=== PATIENT | male | born 1985 | race Caucasian/White ===

== ENCOUNTER 2017-01-05 18:28 | Emergency (ER) | payer OTHER ==
[~2017-01-05 18:28] MED LIST: CELE20TA PO; SERO50TA PO; TRAZ50TA4 PO
[2017-01-05] MEDS ORDERED: AZITHROMYCIN 250 MG TAB As Ordered ONE (19:54)
--- NOTE | 2017-01-05 20:08 | EDDOCDS ---
Physician Documentation [facility] Name: Miguel Chung Age: 31 yrs Sex: Male : 1985 Arrival Date: 01/05/2017 Time: 18:28 Bed 19 Private MD: NO PRIMARY PHYSICIAN, . Disposition: 01/05/17 19:56 Discharged to Home/Self Care. Impression: Acute bronchitis. - Condition is Stable. - Discharge Instructions: Acute Bronchitis. - Prescriptions for Doxycycline Hyclate 100 mg Oral Tablet - take 1 tablet by ORAL route every 12 hours; 20 tablet. - Medication Reconciliation, Local Pharmacy Hours form. - Follow up: [facility]; When: Call to arrange an appointment. - Problem is new. - Symptoms have improved. - Notes: return if worsening symptoms Historical: - Allergies: No known drug Allergies; - Home Meds: 1. Ambien 10 mg oral tab 1 tab once daily 2. Celexa 20 mg Oral tab 1 tab once daily 3. ranitidine HCl 150 mg Oral cap 1 cap 2 times per day 4. Geodon 20 mg Oral cap 1 cap daily 5. Wellbutrin 75 mg Oral tab 1 tab daily - PMHx: ADJUSTMENT DISORDER; Anxiety; Depression; GERD; - PSHx: none; - Social history: Smoking status: Patient uses tobacco products, heavy tobacco smoker. No barriers to communication noted, The patient speaks fluent Lebanese, Speaks appropriately for age. - Family history: Not pertinent. - : The pt / caregiver states he / she is not on anticoagulants. Home medication list is obtained from the patient. - Exposure Risk Screening:: None identified. Vital Signs: 01/05 18:31 BP 145 / 87; Pulse 103; Resp 18 S; Temp 97.3(O); Pulse Ox 97% on R/A; Weight 108.86 kg gr2 / 240 lbs (R); Height 5 ft. 10 in. (177.80 cm) (R); Pain 4/10; 20:05 BP 134 / 94; Pulse 94; Resp 18; Temp 96.8(O); Pulse Ox 94% ; mgs 18:31 Body Mass Index 34.44 (108.86 kg, 177.80 cm) gr2 MDM: 19:52 azithromycin 500 mg PO once ordered. mgs 20:04 Financial registration complete. gjb Administered Medications: 20:02 Drug: azithromycin 500 mg [azithromycin 250 mg tablet (2 tabs)] Route: PO; mgs Signatures: Malina Henriquez MD MD ml Sherrill, Hannah, RN RN hs1 Joseph Anton RN RN mgs Berna Urbano MTDAide
--- NOTE | 2017-01-05 20:08 | EDDOCDS ---
Nurse's Notes [facility] Name: Miguel Chung Age: 31 yrs Sex: Male : 1985 Arrival Date: 01/05/2017 Time: 18:28 Bed 19 Private MD: NO PRIMARY PHYSICIAN, . Diagnosis: Acute bronchitis Presentation: 01/05 18:34 Presenting complaint: Patient states: sinus congestion dry cough chills runny nose. 2 hs1 days ago was diagnosed with bronchitis. Adult Sepsis Screening: The patient does not have new or worsening altered mentation. Patient's respiratory rate is less than 22. Systolic blood pressure is greater than 100. Patient has a qSOFA score of 0- Negative Sepsis Screen. Suicide/Homicide risk assessment- the patient denies having any suicidal and/or homicidal ideations and does not present with any other emotional, behavioral or mental health complaints. Status: Patient is not a customer service representative teacher or dependent. Transition of care: patient was not received from another setting of care. 18:34 Acuity: LUIS CARLOS Level 4 hs1 18:34 Method Of Arrival: Walkin/Carried/Asstd hs1 Triage Assessment: 18:36 General: Appears in no apparent distress, Behavior is appropriate for age, cooperative. hs1 Pain: Denies pain. HIV screening NA for this visit Offered previously. Neurological: Level of Consciousness is awake, alert, obeys commands. Respiratory: Reports cough that is pain with cough. Derm: Skin is pink, warm & dry. normal. Historical: - Allergies: No known drug Allergies; - Home Meds: 1. Ambien 10 mg oral tab 1 tab once daily 2. Celexa 20 mg Oral tab 1 tab once daily 3. ranitidine HCl 150 mg Oral cap 1 cap 2 times per day 4. Geodon 20 mg Oral cap 1 cap daily 5. Wellbutrin 75 mg Oral tab 1 tab daily - PMHx: ADJUSTMENT DISORDER; Anxiety; Depression; GERD; - PSHx: none; - Social history: Smoking status: Patient uses tobacco products, heavy tobacco smoker. No barriers to communication noted, The patient speaks fluent Slovak, Speaks appropriately for age. - Family history: Not pertinent. - : The pt / caregiver states he / she is not on anticoagulants. Home medication list is obtained from the patient. - Exposure Risk Screening:: None identified. Screenin:47 Screening information is obtained from the patient. Fall risk: No risks identified. mgs Assistance ADL's: requires no assistance with activities of daily living. Abuse/DV Screen: The patient / caregiver reports he/she is: not in a situation that causes fear, pain or injury. Nutritional screening: No deficits noted. Advance Directives: Currently, there is no health care proxy. There is no active DNR order. home support is adequate. Assessment: 19:44 General: Appears in no apparent distress, Behavior is appropriate for age, cooperative. mgs Pain: Denies pain. Neurological: Level of Consciousness is awake, alert, Oriented to person, place, time. Cardiovascular: Capillary refill < 3 seconds Heart tones S1 S2 present Pulses are 2+ in right radial artery and left radial artery. Respiratory: Airway is patent Respiratory effort is even, unlabored, Respiratory pattern is regular, symmetrical, Breath sounds are clear bilaterally. Derm: Skin is pink, warm & dry. 20:06 General: Appears in no apparent distress, Behavior is appropriate for age, cooperative. mgs Pain: Denies pain. Neurological: Level of Consciousness is awake, alert, Oriented to person, place, time. Cardiovascular: Capillary refill < 3 seconds. Respiratory: Airway is patent Respiratory effort is even, unlabored, Respiratory pattern is regular, symmetrical. Derm: Skin is pink, warm & dry. Vital Signs: 18:31 BP 145 / 87; Pulse 103; Resp 18 S; Temp 97.3(O); Pulse Ox 97% on R/A; Weight 108.86 kg gr2 (R); Height 5 ft. 10 in. (177.80 cm) (R); Pain 4/10; 20:05 BP 134 / 94; Pulse 94; Resp 18; Temp 96.8(O); Pulse Ox 94% ; mgs 18:31 Body Mass Index 34.44 (108.86 kg, 177.80 cm) gr2 Vitals: 18:31 Log In Time: January 05, 2017 at 18:31. gr2 ED Course: 18:30 Patient visited by Ana Maria Durand. gr2 18:30 Patient moved to Waiting gr2 18:31 NO PRIMARY PHYSICIAN, . is Private Physician. gr2 18:33 Patient visited by Ana Maria Durand. gr2 18:33 Patient moved to Pre RCE gr2 18:34 Triage Initiated hs1 19:30 Patient moved to 19 ttb 19:41 Patient visited by Ryan Novak PCA. kb5 19:44 Joseph Anton,RN is Primary Nurse. mgs 19:46 Malina Henriquez MD is Attending Physician. 19:47 Patient visited by Malina Henriquez MD. 19:48 Patient visited by Joseph Anton,RN. mgs 19:55 [facility] is Referral Physician. ml 20:07 The patient / caregiver is instructed regarding the plan of care and ED course. mgs 20:07 No IV's were initiated during this patient's visit. No procedures done that require mgs assistance. Administered Medications: 20:02 Drug: azithromycin 500 mg [azithromycin 250 mg tablet (2 tabs)] Route: PO; mgs Order Results: There are currently no results for this order. Outcome: 19:56 Discharge ordered by Provider. ml 20:07 Discharge Assessment: Patient awake, alert and oriented x 3. No cognitive and/or mgs functional deficits noted. Patient verbalized understanding of disposition instructions. patient administered narcotics - no. The following High Risk Discharge criteria are identified: None. Discharged to home ambulatory, with family. Condition: stable. Discharge instructions given to patient, Instructed on discharge instructions, follow up and referral plans. medication usage, Demonstrated understanding of instructions, medications, Pt was receptive of discharge instructions/ teaching. Prescriptions given X 1. No special radiology studies were completed. Property sent home with patient. 20:08 Patient left the ED. mgs Signatures: Malina Henriquez MD MD Ryan Novak PCA ELIGIBILITY TECHNICIAN kb5 Mindy Donald RN RN hs1 Millie Medrano RN RN ttb Ana Maria Durand gr2 Joseph Anton,JOSEFINA RN mgs MTDD
--- NOTE | 2017-01-07 21:08 | EDDOCDS ---
Physician Documentation [facility] Name: Miguel Chung Age: 31 yrs Sex: Male : 1985 Arrival Date: 01/05/2017 Time: 18:28 Bed 19 Private MD: NO PRIMARY PHYSICIAN, . Disposition: 01/05/17 19:56 Discharged to Home/Self Care. Impression: Acute bronchitis. - Condition is Stable. - Discharge Instructions: Acute Bronchitis. - Prescriptions for Doxycycline Hyclate 100 mg Oral Tablet - take 1 tablet by ORAL route every 12 hours; 20 tablet. - Medication Reconciliation, Local Pharmacy Hours form. - Follow up: [facility]; When: Call to arrange an appointment. - Problem is new. - Symptoms have improved. - Notes: return if worsening symptoms Historical: - Allergies: No known drug Allergies; - Home Meds: 1. Ambien 10 mg oral tab 1 tab once daily 2. Celexa 20 mg Oral tab 1 tab once daily 3. ranitidine HCl 150 mg Oral cap 1 cap 2 times per day 4. Geodon 20 mg Oral cap 1 cap daily 5. Wellbutrin 75 mg Oral tab 1 tab daily - PMHx: ADJUSTMENT DISORDER; Anxiety; Depression; GERD; - PSHx: none; - Social history: Smoking status: Patient uses tobacco products, heavy tobacco smoker. No barriers to communication noted, The patient speaks fluent Sudanese, Speaks appropriately for age. - Family history: Not pertinent. - : The pt / caregiver states he / she is not on anticoagulants. Home medication list is obtained from the patient. - Exposure Risk Screening:: None identified. Vital Signs: 01/05 18:31 BP 145 / 87; Pulse 103; Resp 18 S; Temp 97.3(O); Pulse Ox 97% on R/A; Weight 108.86 kg gr2 / 240 lbs (R); Height 5 ft. 10 in. (177.80 cm) (R); Pain 4/10; 20:05 BP 134 / 94; Pulse 94; Resp 18; Temp 96.8(O); Pulse Ox 94% ; mgs 18:31 Body Mass Index 34.44 (108.86 kg, 177.80 cm) gr2 MDM: 19:52 azithromycin 500 mg PO once ordered. mgs 20:04 Financial registration complete. gjb 21:26 [facility] Payment Agreement was scanned into [employer] and attached to record. gjb 01/06 12:00 T-Sheet-- Draft Copy was scanned into [employer] and attached to record. gb Administered Medications: 01/05 20:02 Drug: azithromycin 500 mg [azithromycin 250 mg tablet (2 tabs)] Route: PO; mgs Signatures: Malina Henriquez MD MD Shilpi De Jesus, Reg Reg Mindy Donald RN RN hs1 Joseph Anton RN RN mgs Berna Urbano The chart was reviewed and I authenticate all verbal orders and agree with the evaluation and treatment provided.Attachments: 21:26 [facility] Payment Agreement b 01/06 12:00 T-Sheet-- Draft Copy gb Chart Complete MTDD
--- NOTE | 2017-01-07 21:08 | EDDOCDS ---
Physician Documentation [facility] Name: Miguel Chung Age: 31 yrs Sex: Male : 1985 Arrival Date: 01/05/2017 Time: 18:28 Bed 19 Private MD: NO PRIMARY PHYSICIAN, . Disposition: 01/05/17 19:56 Discharged to Home/Self Care. Impression: Acute bronchitis. - Condition is Stable. - Discharge Instructions: Acute Bronchitis. - Prescriptions for Doxycycline Hyclate 100 mg Oral Tablet - take 1 tablet by ORAL route every 12 hours; 20 tablet. - Medication Reconciliation, Local Pharmacy Hours form. - Follow up: [facility]; When: Call to arrange an appointment. - Problem is new. - Symptoms have improved. - Notes: return if worsening symptoms Historical: - Allergies: No known drug Allergies; - Home Meds: 1. Ambien 10 mg oral tab 1 tab once daily 2. Celexa 20 mg Oral tab 1 tab once daily 3. ranitidine HCl 150 mg Oral cap 1 cap 2 times per day 4. Geodon 20 mg Oral cap 1 cap daily 5. Wellbutrin 75 mg Oral tab 1 tab daily - PMHx: ADJUSTMENT DISORDER; Anxiety; Depression; GERD; - PSHx: none; - Social history: Smoking status: Patient uses tobacco products, heavy tobacco smoker. No barriers to communication noted, The patient speaks fluent Czech, Speaks appropriately for age. - Family history: Not pertinent. - : The pt / caregiver states he / she is not on anticoagulants. Home medication list is obtained from the patient. - Exposure Risk Screening:: None identified. Vital Signs: 01/05 18:31 BP 145 / 87; Pulse 103; Resp 18 S; Temp 97.3(O); Pulse Ox 97% on R/A; Weight 108.86 kg gr2 / 240 lbs (R); Height 5 ft. 10 in. (177.80 cm) (R); Pain 4/10; 20:05 BP 134 / 94; Pulse 94; Resp 18; Temp 96.8(O); Pulse Ox 94% ; mgs 18:31 Body Mass Index 34.44 (108.86 kg, 177.80 cm) gr2 MDM: 19:52 azithromycin 500 mg PO once ordered. mgs 20:04 Financial registration complete. gjb 21:26 [facility] Payment Agreement was scanned into [employer] and attached to record. gjb 01/06 12:00 T-Sheet-- Draft Copy was scanned into [employer] and attached to record. gb Administered Medications: 01/05 20:02 Drug: azithromycin 500 mg [azithromycin 250 mg tablet (2 tabs)] Route: PO; mgs Signatures: Malina Henriquez MD MD Shilpi De Jesus, Reg Reg Mindy Donald RN RN hs1 Joseph Anton RN RN mgs Berna Urbano The chart was reviewed and I authenticate all verbal orders and agree with the evaluation and treatment provided.Attachments: 21:26 [facility] Payment Agreement b 01/06 12:00 T-Sheet-- Draft Copy gb Chart Complete MTDD
--- NOTE | 2017-01-07 21:09 | EDDOCDS ---
Nurse's Notes [facility] Name: Miguel Chung Age: 31 yrs Sex: Male : 1985 Arrival Date: 01/05/2017 Time: 18:28 Bed 19 Private MD: NO PRIMARY PHYSICIAN, . Diagnosis: Acute bronchitis Presentation: 01/05 18:34 Presenting complaint: Patient states: sinus congestion dry cough chills runny nose. 2 hs1 days ago was diagnosed with bronchitis. Adult Sepsis Screening: The patient does not have new or worsening altered mentation. Patient's respiratory rate is less than 22. Systolic blood pressure is greater than 100. Patient has a qSOFA score of 0- Negative Sepsis Screen. Suicide/Homicide risk assessment- the patient denies having any suicidal and/or homicidal ideations and does not present with any other emotional, behavioral or mental health complaints. Status: Patient is not a track service person or dependent. Transition of care: patient was not received from another setting of care. 18:34 Acuity: LUIS CARLOS Level 4 hs1 18:34 Method Of Arrival: Walkin/Carried/Asstd hs1 Triage Assessment: 18:36 General: Appears in no apparent distress, Behavior is appropriate for age, cooperative. hs1 Pain: Denies pain. HIV screening NA for this visit Offered previously. Neurological: Level of Consciousness is awake, alert, obeys commands. Respiratory: Reports cough that is pain with cough. Derm: Skin is pink, warm & dry. normal. Historical: - Allergies: No known drug Allergies; - Home Meds: 1. Ambien 10 mg oral tab 1 tab once daily 2. Celexa 20 mg Oral tab 1 tab once daily 3. ranitidine HCl 150 mg Oral cap 1 cap 2 times per day 4. Geodon 20 mg Oral cap 1 cap daily 5. Wellbutrin 75 mg Oral tab 1 tab daily - PMHx: ADJUSTMENT DISORDER; Anxiety; Depression; GERD; - PSHx: none; - Social history: Smoking status: Patient uses tobacco products, heavy tobacco smoker. No barriers to communication noted, The patient speaks fluent Maori, Speaks appropriately for age. - Family history: Not pertinent. - : The pt / caregiver states he / she is not on anticoagulants. Home medication list is obtained from the patient. - Exposure Risk Screening:: None identified. Screenin:47 Screening information is obtained from the patient. Fall risk: No risks identified. mgs Assistance ADL's: requires no assistance with activities of daily living. Abuse/DV Screen: The patient / caregiver reports he/she is: not in a situation that causes fear, pain or injury. Nutritional screening: No deficits noted. Advance Directives: Currently, there is no health care proxy. There is no active DNR order. home support is adequate. Assessment: 19:44 General: Appears in no apparent distress, Behavior is appropriate for age, cooperative. mgs Pain: Denies pain. Neurological: Level of Consciousness is awake, alert, Oriented to person, place, time. Cardiovascular: Capillary refill < 3 seconds Heart tones S1 S2 present Pulses are 2+ in right radial artery and left radial artery. Respiratory: Airway is patent Respiratory effort is even, unlabored, Respiratory pattern is regular, symmetrical, Breath sounds are clear bilaterally. Derm: Skin is pink, warm & dry. 20:06 General: Appears in no apparent distress, Behavior is appropriate for age, cooperative. mgs Pain: Denies pain. Neurological: Level of Consciousness is awake, alert, Oriented to person, place, time. Cardiovascular: Capillary refill < 3 seconds. Respiratory: Airway is patent Respiratory effort is even, unlabored, Respiratory pattern is regular, symmetrical. Derm: Skin is pink, warm & dry. Vital Signs: 18:31 BP 145 / 87; Pulse 103; Resp 18 S; Temp 97.3(O); Pulse Ox 97% on R/A; Weight 108.86 kg gr2 (R); Height 5 ft. 10 in. (177.80 cm) (R); Pain 4/10; 20:05 BP 134 / 94; Pulse 94; Resp 18; Temp 96.8(O); Pulse Ox 94% ; mgs 18:31 Body Mass Index 34.44 (108.86 kg, 177.80 cm) gr2 Vitals: 18:31 Log In Time: January 05, 2017 at 18:31. gr2 ED Course: 18:30 Patient visited by Ana Maria Durand. gr2 18:30 Patient moved to Waiting gr2 18:31 NO PRIMARY PHYSICIAN, . is Private Physician. gr2 18:33 Patient visited by Ana Maria Durand. gr2 18:33 Patient moved to Pre RCE gr2 18:34 Triage Initiated hs1 19:30 Patient moved to 19 ttb 19:41 Patient visited by Ryan Novak PCA. kb5 19:44 Joseph Anton,RN is Primary Nurse. mgs 19:46 Malina Henriquez MD is Attending Physician. ml 19:47 Patient visited by Malina Henriquez MD. ml 19:48 Patient visited by Joseph Anton,RN. mgs 19:55 [facility] is Referral Physician. ml 20:07 The patient / caregiver is instructed regarding the plan of care and ED course. mgs 20:07 No IV's were initiated during this patient's visit. No procedures done that require mgs assistance. 21:26 [facility] Payment Agreement was scanned into [employer] and attached to record. gjb 02 12:00 T-Sheet-- Draft Copy was scanned into [employer] and attached to record. gb Administered Medications: 01/05 20:02 Drug: azithromycin 500 mg [azithromycin 250 mg tablet (2 tabs)] Route: PO; mgs Order Results: There are currently no results for this order. Outcome: 19:56 Discharge ordered by Provider. ml 20:07 Discharge Assessment: Patient awake, alert and oriented x 3. No cognitive and/or mgs functional deficits noted. Patient verbalized understanding of disposition instructions. patient administered narcotics - no. The following High Risk Discharge criteria are identified: None. Discharged to home ambulatory, with family. Condition: stable. Discharge instructions given to patient, Instructed on discharge instructions, follow up and referral plans. medication usage, Demonstrated understanding of instructions, medications, Pt was receptive of discharge instructions/ teaching. Prescriptions given X 1. No special radiology studies were completed. Property sent home with patient. 20:08 Patient left the ED. mgs Signatures: Malina Henriquez MD MD Shilpi De Jesus, Reg Reg Ryan Novak, LAB MANAGER LAB MANAGER kb5 Mindy Donald RN RN hs1 Millie Medrano RN RN ttb Ana Maria Durand gr2 Joseph Anton,RN RN mgs Berna Urbano [facility] Chart Complete MTDD
== END 2017-01-05 20:08 | disposition home or self-care (01) ==
LOC: M ED 18:28
DX: J20.9 Acute bronchitis, unspecified (principal); F32.9 Major depressive disorder, single episode, unspecified; F41.9 Anxiety disorder, unspecified; K21.9 Gastro-esophageal reflux disease without esophagitis; F43.20 Adjustment disorder, unspecified; Z79.899 Other long term (current) drug therapy; F17.210 Nicotine dependence, cigarettes, uncomplicated

== ENCOUNTER 2018-06-21 08:11 | Outpatient (RCR) | payer OTHER | END 2018-06-27 | LOC: M PT 08:11 | DX: Z51.89 Encounter for other specified aftercare (principal); S39.92XA Unspecified injury of lower back, initial encounter | CPT/HCPCS: 97010 ==

== ENCOUNTER 2018-06-29 12:57 | Outpatient (RCR) | payer OTHER | END 2018-07-28 | LOC: M PT 12:57 | DX: Z51.89 Encounter for other specified aftercare (principal); S39.92XA Unspecified injury of lower back, initial encounter | CPT/HCPCS: 97010 ==

== ENCOUNTER 2018-08-02 12:44 | Outpatient (RCR) | payer OTHER | END 2018-08-27 | LOC: M PT 12:44 | DX: S39.92XD Unspecified injury of lower back, subsequent encounter (principal) | CPT/HCPCS: 97010 ==

== ENCOUNTER 2018-08-26 09:02 | Emergency (ER) | payer OTHER ==
[2018-08-26] MEDS: predniSONE 20 MG TAB PO (09:50)
[2018-08-26] MEDS: ALBUTEROL SULFATE 2.5 MG/0.5 ML INH NEB SOLN NEB (09:53)
[2018-08-26 10:02] LABS: BASO # 0.1 10^3/uL (0.0-0.2); BASO % 0.6 % (0.0-1.0); EOS # 0.6 10^3/uL (0.0-0.50); EOS % 7.5 % (0.0-3.0); HEMATOCRIT 47.5 % (42.0-52.0); HEMOGLOBIN 16.9 g/dl (13.5-17.5); IMMATURE GRANULOCYTE % 0.1 % (0-3.0); LYMPH # 1.9 10^3/uL (1.5-4.5); LYMPH % 23.4 % (24.0-44.0); MEAN CORPUSCULAR HEMOGLOBIN 29.6 pg (27.0-33.0); MEAN CORPUSCULAR HGB CONC 35.6 g/dl (32.0-36.5); MEAN CORPUSCULAR VOLUME 83.3 fl (80.0-96.0); MONO # 1.1 10^3/uL (0.0-0.8); MONO % 13.8 % (0.0-5.0); NEUTROPHILS # 4.4 10^3/uL (1.8-7.7); NEUTROPHILS % 54.6 % (36.0-66.0); PLATELET COUNT, AUTOMATED 179 10^3/uL (150-450); RED CELL DISTRIBUTION WIDTH 12.8 % (11.5-14.5); WHITE BLOOD COUNT 8.1 10^3/uL (4.0-10.0)
[2018-08-26 10:26] LABS: D-DIMER QUANT 376.5 ng/ml (<500)
[2018-08-26 10:38] LABS: ANION GAP 8 MEQ/L (8-16); BLOOD UREA NITROGEN 16 MG/DL (7-18); CALCIUM LEVEL 8.9 MG/DL (8.5-10.1); CARBON DIOXIDE LEVEL 22 MEQ/L (21-32); CHLORIDE LEVEL 112 MEQ/L (98-107); CK-MB VALUE MASS < 1.0 NG/ML (<3.6); CPK CREATINE PHOSPHOKINASE 137 U/L (39-308); CREATININE FOR GFR 0.97 MG/DL (0.70-1.30); GLOMERULAR FILTRATION RATE > 60.0 (>60); GLUCOSE, FASTING 105 MG/DL (70-100); MB/CK RELATIVE INDEX 0.73 (< OR =4); POTASSIUM SERUM 4.6 MEQ/L (3.5-5.1); SODIUM LEVEL 142 MEQ/L (136-145); TROPONIN I < 0.02 NG/ML (< 0.10)
== END 2018-08-26 10:58 | disposition home or self-care (01) ==
LOC: M ED 09:02
DX: J06.9 Acute upper respiratory infection, unspecified (principal); R06.2 Wheezing; Z72.0 Tobacco use
CPT/HCPCS: 71046

== ENCOUNTER → 2018-12-04 | Outpatient (CLI) | payer OTHER ==
[~2018-12-04] MED LIST changes: +PROAAER10 INH; +TRAZ-160 PO; -TRAZ50TA4 PO
[2018-12-04 11:19] LABS: BASO # 0.1 10^3/uL (0.0-0.2); BASO % 0.8 % (0.0-1.0); EOS # 0.5 10^3/uL (0.0-0.50); EOS % 7.8 % (0.0-3.0); HEMATOCRIT 53.6 % (42.0-52.0); HEMOGLOBIN 18.2 g/dl (13.5-17.5); LYMPH # 1.8 10^3/uL (1.5-4.5); LYMPH % 29.5 % (24.0-44.0); MEAN CORPUSCULAR HEMOGLOBIN 29.5 pg (27.0-33.0); MEAN CORPUSCULAR VOLUME 86.9 fl (80.0-96.0); MONO # 0.5 10^3/uL (0.0-0.8); MONO % 7.8 % (0.0-5.0); NEUTROPHILS # 3.2 10^3/uL (1.8-7.7); NEUTROPHILS % 53.8 % (36.0-66.0); PLATELET COUNT, AUTOMATED 207 10^3/uL (150-450); RED BLOOD COUNT 6.17 10^6/uL (4.30-6.10)
[2018-12-04 12:08] LABS: BLOOD UREA NITROGEN 16 MG/DL (7-18); CALCIUM LEVEL 9.1 MG/DL (8.5-10.1); CARBON DIOXIDE LEVEL 28 MEQ/L (21-32); CHLORIDE LEVEL 109 MEQ/L (98-107); CORTISOL AM 10.4 UG/DL (4.3-22.4); CREATININE FOR GFR 1.17 MG/DL (0.70-1.30); GLOMERULAR FILTRATION RATE > 60.0 (>60); GLUCOSE, FASTING 106 MG/DL (70-100); POTASSIUM SERUM 4.9 MEQ/L (3.5-5.1); SODIUM LEVEL 142 MEQ/L (136-145)
== END ==
LOC: M LAB 10:46
PROVIDERS: ATTEND Hospitalist
DX: R00.0 Tachycardia, unspecified (principal)

== ENCOUNTER → 2019-11-23 | Outpatient (REF) | payer OTHER ==
[~2019-11-23] MED LIST changes: -TRAZ-160 PO; +TRAZ-252 PO
== END ==
LOC: M SFHCPLAZ 14:48
PROVIDERS: ATTEND Family Medicine
DX: C44.319 Basal cell carcinoma of skin of other parts of face (principal)

== ENCOUNTER 2021-10-13 23:20 | Emergency (ER) | payer OTHER ==
[~2021-10-13] VITALS: Ht 182.9 cm; Wt 141.2 kg
[2021-10-13 23:21] VITALS: BP 131/86
--- OUTSIDE RECORDS SUMMARY | 2021-10-13 23:27 | CCD ---
Author Author [facility] Organization [facility] Address Unknown Phone Unavailable Care Team Providers Care [employer] Team Member Name Role Phone LaBangel, Sanjay Unavailable Leonardo Gee Unavailable Leonardo Gee Unavailable ARSENIO, H KEITH BEHAVIOR ANALYST Unavailable Unavailable ARSENIO, H KEITH BEHAVIOR ANALYST Unavailable Unavailable ARSENIO, H KEITH BEHAVIOR ANALYST Unavailable Unavailable ARSENIO, H KEITH BEHAVIOR ANALYST Unavailable Unavailable ARSENIO, H KEITH BEHAVIOR ANALYST Unavailable Unavailable ARSENIO, H KEITH BEHAVIOR ANALYST Unavailable Unavailable ARSENIO, H KEITH BEHAVIOR ANALYST Unavailable Unavailable ARSENIO, H KEITH BEHAVIOR ANALYST Unavailable Unavailable ARSENIO, H KEITH BEHAVIOR ANALYST Unavailable Unavailable Re-disclosure Warning The records that you are about to access may contain information from federally-assisted alcohol or drug abuse programs. If such information is present, then the following federally mandated warning applies: This information has been disclosed to you from records protected by federal confidentiality rules (42 CFR part 2). The federal rules prohibit you from making any further disclosure of this information unless further disclosure is expressly permitted by the written consent of the person to whom it pertains or as otherwise permitted by 42 CFR part 2. A general authorization for the release of medical or other information is NOT sufficient for this purpose. The Federal rules restrict any use of the information to criminally investigate or prosecute any alcohol or drug abuse patient.The records that you are about to access may contain highly sensitive health information, the redisclosure of which is protected by Article 27-F of the [facility] Public Health law. If you continue you may have access to information: Regarding HIV / AIDS; Provided by facilities licensed or operated by the [facility] Office of Mental Health; or Provided by the [facility] Office for People With Developmental Disabilities. If such information is present, then the following [facility] mandated warning applies: This information has been disclosed to you from confidential records which are protected by state law. State law prohibits you from making any further disclosure of this information without the specific written consent of the person to whom it pertains, or as otherwise permitted by law. Any unauthorized further disclosure in violation of state law may result in a fine or alf sentence or both. A general authorization for the release of medical or other information is NOT sufficient authorization for further disc losure. Encounters Encounter Providers Location Date Indications Data Source(s ) Unknown [address] [place] [address], [facility] [id number] 02/11/2021 12:00:00 AM EDT eCW1 (Formerly [facility]) Outpatient Attender: KEITH EID NP [facility] yasmine 11/26/2020 04:30:00 AM EST - 11/26/2020 04:30:00 AM EST [facility] ([facility]) Attender: KEITH EID NP 11/26/2020 12:00:00 AM EST [facility] ([facility]) Extended Individual Psychotherapy - 45 min Attender: Enrique camara [facility] 11/19/2020 03:00:00 AM EST - 11/19/2020 03:00:00 AM EST [facility] ([facility]) Attender: Gee Patterson 11/19/2020 12:00:00 AM EST [facility] ([facility]) Extended Individual Psychotherapy - 45 min Attender: Enrique to [facility] 10/30/2020 02:00:00 AM EST - 10/30/2020 02:00:00 AM EST [facility] ([facility]) Attender: Gee Patterson 10/30/2020 12:00:00 AM EST [facility] ([facility]) Attender: Gee Patterson 09/28/2020 12:00:00 AM EDT [facility] ([facility]) Extended Individual Psychotherapy - 45 min Attender: Enrique jax Patterson [facility] 09/26/2020 04:00:00 AM EDT - 09/26/2020 04:00:00 AM EDT [facility] ([facility]) Outpatient Attender: KEITH EID NP [facility] yasmine 09/15/2020 03:00:00 AM EDT - 09/15/2020 03:00:00 AM EDT [facility] ([facility]) Attender: KEITH EID NP 09/15/2020 12:00:00 AM EDT [facility] ([facility]) TEMPMHCTelemed 30" Psychotherapy Attender: Sanjay Rawls [facility] 08/14/2020 03:00:00 AM EDT - 08/14/2020 03:00:00 AM EDT [facility] ([facility]) Attender: Sanjay Rawls 08/14/2020 12:00:00 AM EDT [facility] ([facility]) Functional Status Immunizations Vaccine Date Status Description Data Source(s) COVID-19 VACCINE [place] 04/23/2021 12:00:00 AM EDT completed [facility] Vaccine Series Complete: YESThis Data wa s Submitted to [facility] Via [facility]. Medications Medication Brand Name Start Date Product Form Dose Route Admi nistrative Instructions Pharmacy Instructions Status Indications Reaction Description Data Source(s) 50 mg 01/05/2021 12:00:00 AM EST tablet 30 TAKE ONE TABLET BY MOUTH AT BEDTIME NEEDED TAKE ONE TABLET BY MOUTH AT BEDTIME NEEDED SOLD: [facility] 50 mg 01/05/2021 12:00:00 AM EST tablet 30 TAKE ONE TABLET BY MOUTH AT BEDTIME NEEDED TAKE ONE TABLET BY MOUTH AT BEDTIME NEEDED SOLD: [facility] 500 mg 01/05/2021 12:00:00 AM EST tablet,delayed release (DR/EC) 30 TAKE ONE TABLET BY MOUTH EVERY MORNING TAKE ONE TABLET BY MOUTH EVERY MORNING SOLD: 01/05/2021 [facility] 10 mg 01/05/2021 12:00:00 AM EST tablet 30 TAKE ONE TABLET BY MOUTH EVERY DAY TAKE ONE TABLET BY MOUTH EVERY DAY SOLD: 02/07/2021 [facility] 10 mg 01/05/2021 12:00:00 AM EST tablet 30 TAKE ONE TABLET BY MOUTH EVERY DAY TAKE ONE TABLET BY MOUTH EVERY DAY SOLD: 01/05/2021 [facility] 10 mg 10/15/2020 12:00:00 AM EST tablet 30 TAKE ONE TABLET BY MOUTH EVERY DAY TAKE ONE TABLET BY MOUTH EVERY DAY SOLD: 11/27/2020 [facility] 1 mg 10/15/2020 12:00:00 AM EST tablet 30 TAKE ONE TABLET BY MOUTH EVERY DAY TAKE ONE TABLET BY MOUTH EVERY DAY SOLD: 11/27/2020 [facility] 500 mg 10/15/2020 12:00:00 AM EST tablet,delayed release (DR/EC) 30 TAKE ONE TABLET BY MOUTH EVERY MORNING TAKE ONE TABLET BY MOUTH EVERY MORNING SOLD: 10/21/2020 [facility] Citalopram 20 MG Oral Tablet CITALOPRAM HYDROBROMIDE 10/15/2020 12:00:00 AM EST tablet 30 TAKE ONE TABLET BY MOUTH EVERY M ORNING TAKE ONE TABLET BY MOUTH EVERY MORNING SOLD: 10/21/2020 [facility] 50 mg 10/15/2020 12:00:00 AM EST tablet 30 TAKE ONE TABLET BY MOUTH EVERY DAY AT BEDTIME NEEDED TAKE ONE TABLET BY MOUTH EVERY DAY AT [facility] NEEDED SOLD: 11/27/2020 [facility] Citalopram 20 MG Oral Tablet CITALOPRAM HYDROBROMIDE 10/15/2020 12:00:00 AM EST tablet 30 TAKE ONE TABLET BY MOUTH EVERY M ORNING TAKE ONE TABLET BY MOUTH EVERY MORNING SOLD: 11/27/2020 [facility] 500 mg 10/15/2020 12:00:00 AM EST tablet,delayed release (DR/EC) 30 TAKE ONE TABLET BY MOUTH EVERY MORNING TAKE ONE TABLET BY MOUTH EVERY MORNING SOLD: 11/27/2020 [facility] 250 mg 10/15/2020 12:00:00 AM EST tablet,delayed release (DR/EC) 30 TAKE ONE TABLET BY MOUTH EVERY DAY AT BEDTIME TAKE ONE TABLET BY MOUTH EVERY DAY AT BEDTIME SOLD: 11/27/2020 [facility] Trazodone Hydrochloride 50 MG Oral Tablet trazodone 2019 12:00:00 AM EST 50 mg completed <td ID="Medica tionRxNorm_3">031468</td><td ID="MedicationMedication_3">trazodone</td><td ID="MedicationRoute_3"></td><td ID="MedicationRouteConcept_3"></td><td ID="MedicationStartDate_3">10/15/2020</td><td ID="MedicationStopDate_3"></td><td ID="MedicationDosageFrequency_3">at bedtime</td><td ID="MedicationDuration_3"></td><td ID="MedicationFormulaStrength_3">50 mg</td><td ID="MedicationDosageForm_3">tablet</td><td ID="MedicationDosageFormCode_3"></td><td ID="MedicationDosageDescription_3">as needed</td><td ID="MedicationMedicationId_3">[id number]</td><td ID="MedicationAccount_3">[id number]</td><td ID="MedicationNpid_3">[id number]</td><td ID="MedicationAuthorFirstName_3">Keith</td><td ID="MedicationAuthorLastName_3">Arsenio</td><td ID="MedicationTaxonomyCode_3">[id number]</td><td ID="MedicationTaxonomyDesc_3">Nurse Practitioner</td><td ID="MedicationPhoneNumber_3">[phone]</td> [facility] ([facility]) 250 mg 10/15/2020 12:00:00 AM EST tablet,delayed release (DR/EC) 30 TAKE ONE TABLET BY MOUTH EVERY DAY AT BEDTIME TAKE ONE TABLET BY MOUTH EVERY DAY AT BEDTIME SOLD: 10/21/2020 [facility] 1 mg 10/15/2020 12:00:00 AM EST tablet 30 TAKE ONE TABLET BY MOUTH EVERY DAY TAKE ONE TABLET BY MOUTH EVERY DAY SOLD: 10/21/2020 [facility] 50 mg 10/15/2020 12:00:00 AM EST tablet 30 TAKE ONE TABLET BY MOUTH EVERY DAY AT BEDTIME NEEDED TAKE ONE TABLET BY MOUTH EVERY DAY AT [facility] NEEDED SOLD: 10/21/2020 [facility] 10 mg 10/15/2020 12:00:00 AM EST tablet 30 TAKE ONE TABLET BY MOUTH EVERY DAY TAKE ONE TABLET BY MOUTH EVERY DAY SOLD: 10/21/2020 [facility] 100 mg 10/14/2020 12:00:00 AM EST tablet sustained-releas e 12 hr 30 TAKE ONE TABLET BY MOUTH EVERY MORNING TAKE ONE TABLET BY MOUTH EVERY MORNING SOLD: 10/21/2020 [facility] 100 mg 10/14/2020 12:00:00 AM EST tablet sustained-releas e 12 hr 30 TAKE ONE TABLET BY MOUTH EVERY MORNING TAKE ONE TABLET BY MOUTH EVERY MORNING SOLD: 11/27/2020 [facility] 250 mg 09/16/2020 12:00:00 AM EDT tablet,delayed release (DR/EC) 30 TAKE ONE TABLET BY MOUTH EVERY DAY AT BEDTIME TAKE ONE TABLET BY MOUTH EVERY DAY AT BEDTIME SOLD: 01/05/2021 [facility] Citalopram 20 MG Oral Tablet CITALOPRAM HYDROBROMIDE 09/16/2020 12:00:00 AM EDT tablet 30 TAKE ONE TABLET BY MOUTH EVERY M ORNING TAKE ONE TABLET BY MOUTH EVERY MORNING SOLD: 01/05/2021 [facility] 1 mg 09/16/2020 12:00:00 AM EDT tablet 30 TAKE ONE TABLET BY MOUTH EVERY DAY TAKE ONE TABLET BY MOUTH EVERY DAY SOLD: 09/18/2020 [facility] 20 mg 09/16/2020 12:00:00 AM EDT tablet 30 TAKE ONE TABLET BY MOUTH EVERY MORNING TAKE ONE TABLET BY MOUTH EVERY MORNING SOLD: 09/18/2020 [facility] 250 mg 09/16/2020 12:00:00 AM EDT tablet,delayed release (DR/EC) 30 TAKE ONE TABLET BY MOUTH EVERY DAY AT BEDTIME TAKE ONE TABLET BY MOUTH EVERY DAY AT BEDTIME SOLD: 09/18/2020 [facility] 1 mg 09/16/2020 12:00:00 AM EDT tablet 30 TAKE ONE TABLET BY MOUTH EVERY DAY TAKE ONE TABLET BY MOUTH EVERY DAY SOLD: 01/05/2021 [facility] 100 mg 09/16/2020 12:00:00 AM EDT tablet sustained-releas e 12 hr 30 TAKE ONE TABLET BY MOUTH EVERY MORNING TAKE ONE TABLET BY MOUTH EVERY MORNING SOLD: 01/05/2021 [facility] 100 mg 09/16/2020 12:00:00 AM EDT tablet sustained-releas e 12 hr 30 TAKE ONE TABLET BY MOUTH EVERY MORNING TAKE ONE TABLET BY MOUTH EVERY MORNING SOLD: 09/18/2020 [facility] 12 HR Bupropion Hydrochloride 100 MG Extended Release Oral Tablet [Wellbutrin] Wellbutrin SR 09/15/2020 12:00:00 AM EDT 100 mg comp leted <td ID="MedicationRxNorm_1">063318</td><td ID="MedicationMedication_1">Wellbutrin SR</td><td ID="MedicationRoute_1"></td><td ID="MedicationRouteConcept_1"></td> <td ID="MedicationStartDate_1">09/15/2020</td><td ID="MedicationStopDate_1"></td><td ID="MedicationDosageFrequency_1">every morning</td><td ID="MedicationDuration_1"></td><td ID="MedicationFormulaStrength_1">100 mg</td><td ID="MedicationDosageForm_1">tablet sustained-release 12 hr</td><td ID="MedicationDosageFormCode_1"></td><td ID="MedicationDosageDescription_1"></td><td ID="MedicationMedicationId_1">[id number]</td><td ID="MedicationAccount_1">[id number]</td><td ID="MedicationNpid_1">[id number]</td><td ID="MedicationAuthorFirstName_1">Keith</td><td ID="MedicationAuthorLastName_1">Arsenio</td><td ID="MedicationTaxonomyCode_1">[id number]</td><td ID="MedicationTaxonomyDesc_1"> Nurse Practitioner</td><td ID="MedicationPhoneNumber_1">[phone]</td> [facility] ([facility]) Risperidone 1 MG Oral Tablet [Risperdal] Risperdal 09/15/2020 12 :00:00 AM EDT 1 mg by mouth completed <td ID="Me dicationRxNorm_7">263138</td><td ID="MedicationMedication_7">Risperdal</td><td ID="MedicationRoute_7">by mouth</td><td ID="MedicationRouteConcept_7">G86032</td><td ID="MedicationStartDate_7">09/15/2020</td><td ID="MedicationStopDate_7">12/13/2020</td><td ID="MedicationDosageFrequency_7">once a day</td><td ID="MedicationDuration_7">30</td><td ID="MedicationFormulaStrength_7">1 mg</td><td ID="MedicationDosageForm_7">tablet</td><td ID="MedicationDosageFormCode_7"></td><td ID="MedicationDosageDescription_7"></td><td ID="MedicationMedicationId_7">[id number]</td><td ID="MedicationAccount_7">[id number]</td><td ID="MedicationNpid_7">[id number]</td><td ID="MedicationAuthorFirstName_7">Keith</td><td ID="MedicationAuthorLastName_7">Arsenio</td><td ID="MedicationTaxonomyCode_7">[id number]</td><td ID="MedicationTaxonomyDesc_7">Nurse Practitioner</td><td ID="MedicationPhoneNumber_7">[phone]</td> [facility] ([facility]) Citalopram 10 MG Oral Tablet [Celexa] Celexa 09/15/2020 12:00:00 AM EDT 10 mg by mouth completed <td ID="Medica tionRxNorm_3">814793</td><td ID="MedicationMedication_3">Celexa</td><td ID="MedicationRoute_3">by mouth</td><td ID="MedicationRouteConcept_3">F21378</td><td ID="MedicationStartDate_3">09/15/2020</td><td ID="MedicationStopDate_3">11/14/2020</td><td ID="MedicationDosageFrequency_3">once a day</td><td ID="MedicationDuration_3">30</td><td ID="MedicationFormulaStrength_3">10 mg</td><td ID="MedicationDosageForm_3">tablet</td><td ID="MedicationDosageFormCode_3"></td><td ID="MedicationDosageDescription_3"></td><td ID="MedicationMedicationId_3">[id number]</td><td ID="MedicationAccount_3">[id number]</td><td ID="MedicationNpid_3">[id number]</td><td ID="MedicationAuthorFirstName_3">Keith</td><td ID="MedicationAuthorLastName_3">Arsenio</td><td ID="MedicationTaxonomyCode_3">[id number]</td><td ID="MedicationTaxonomyDesc_3">Nurse Practitioner</td><td ID="MedicationPhoneNumber_3">[phone]</td> [facility] ([facility]) Divalproex Sodium 500 MG Delayed Release Oral Tablet [Depako te] Depakote 09/15/2020 12:00:00 AM EDT 500 mg by mouth completed <td ID="MedicationRxNorm_4">8581207</td><td ID="MedicationMedication_4">Depakote</td><td ID="MedicationRoute_4">by mouth</td><td ID="MedicationRouteConcept_4">N25827</td><td ID="MedicationStartDate_4">09/15/2020</td><td ID="MedicationStopDate_4">11/14/2020</td><td ID="MedicationDosageFrequency_4">every morning</td><td ID="MedicationDuration_4">30</td><td ID="MedicationFormulaStrength_4">500 mg</td><td ID="MedicationDosageForm_4">tablet,delayed release (DR/EC)</td><td ID="MedicationDosageFormCode_4"></td><td ID="MedicationDosageDescription_4"></td><td ID="MedicationMedicationId_4">[id number]</td><td ID="MedicationAccount_4">[id number]</td><td ID="MedicationNpid_4">[id number]</td><td ID="MedicationAuthorFirstName_4">Keith</td><td ID="MedicationAuthorLastName_4">Arsenio</td><td ID="MedicationTaxonomyCode_4">[id number]</td><td ID="MedicationTaxonomyDesc_4"> Nurse Practitioner</td><td ID="MedicationPhoneNumber_4">[phone]</td> [facility] ([facility]) Risperidone 1 MG Oral Tablet [Risperdal] Risperdal 09/15/2020 12 :00:00 AM EDT 1 mg by mouth completed <td ID="Me dicationRxNorm_6">073796</td><td ID="MedicationMedication_6">Risperdal</td><td ID="MedicationRoute_6">by mouth</td><td ID="MedicationRouteConcept_6">A79121</td><td ID="MedicationStartDate_6">09/15/2020</td><td ID="MedicationStopDate_6">11/14/2020</td><td ID="MedicationDosageFrequency_6">once a day</td><td ID="MedicationDuration_6">30</td><td ID="MedicationFormulaStrength_6">1 mg</td><td ID="MedicationDosageForm_6">tablet</td><td ID="MedicationDosageFormCode_6"></td><td ID="MedicationDosageDescription_6"></td><td ID="MedicationMedicationId_6">[id number]</td><td ID="MedicationAccount_6">[id number]</td><td ID="MedicationNpid_6">[id number]</td><td ID="MedicationAuthorFirstName_6">Keith</td><td ID="MedicationAuthorLastName_6">Arsenio</td><td ID="MedicationTaxonomyCode_6">[id number]</td><td ID="MedicationTaxonomyDesc_6">Nurse Practitioner</td><td ID="MedicationPhoneNumber_6">[phone]</td> [facility] ([facility]) Citalopram 20 MG Oral Tablet [Celexa] Celexa 09/15/2020 12:00:00 AM EDT 20 mg completed <td ID="Medica tionRxNorm_6">502675</td><td ID="MedicationMedication_6">Celexa</td><td ID="MedicationRoute_6"></td><td ID="MedicationRouteConcept_6"></td><td ID="MedicationStartDate_6">09/15/2020</td><td ID="MedicationStopDate_6">12/13/2020</td><td ID="MedicationDosageFrequency_6"></td><td ID="MedicationDuration_6">30</td><td ID="MedicationFormulaStrength_6">20 mg</td><td ID="MedicationDosageForm_6">tablet</td><td ID="MedicationDosageFormCode_6"></td><td ID="MedicationDosageDescription_6"></td><td ID="MedicationMedicationId_6">[id number]</td><td ID="MedicationAccount_6">[id number]</td><td ID="MedicationNpid_6">[id number]</td><td ID="MedicationAuthorFirstName_6">Keith</td><td ID="MedicationAuthorLastName_6">Arsenio</td><td ID="MedicationTaxonomyCode_6">[id number]</td><td ID="MedicationTaxonomyDesc_6">Nurse Practitioner</td><td ID="MedicationPhoneNumber_6">[phone]</td> [facility] ([facility]) Divalproex Sodium 250 MG Delayed Release Oral Tablet [Depako te] Depakote 09/15/2020 12:00:00 AM EDT 250 mg by mouth completed <td ID="MedicationRxNorm_2">1364623</td><td ID="MedicationMedication_2">Depakote</td><td ID="MedicationRoute_2">by mouth</td><td ID="MedicationRouteConcept_2">O12847</td><td ID="MedicationStartDate_2">09/15/2020</td><td ID="MedicationStopDate_2"></td><td ID="MedicationDosageFrequency_2">at bedtime</td><td ID="MedicationDuration_2"></td><td ID="MedicationFormulaStrength_2">250 mg</td><td ID="MedicationDosageForm_2">tablet,delayed release (DR/EC)</td><td ID="MedicationDosageFormCode_2"></td><td ID="MedicationDosageDescription_2"></td><td ID="MedicationMedicationId_2">[id number]</td><td ID="MedicationAccount_2">[id number]</td><td ID="MedicationNpid_2">[id number]</td><td ID="MedicationAuthorFirstName_2">Keith</td><td ID="MedicationAuthorLastName_2">Arsenio</td><td ID="MedicationTaxonomyCode_2">[id number]</td><td ID="MedicationTaxonomyDesc_2"> Nurse Practitioner</td><td ID="MedicationPhoneNumber_2">[phone]</td> [facility] ([facility]) Citalopram 10 MG Oral Tablet [Celexa] Celexa 09/15/2020 12:00:00 AM EDT 10 mg by mouth completed <td ID="Medica tionRxNorm_4">947125</td><td ID="MedicationMedication_4">Celexa</td><td ID="MedicationRoute_4">by mouth</td><td ID="MedicationRouteConcept_4">N09744</td><td ID="MedicationStartDate_4">09/15/2020</td><td ID="MedicationStopDate_4">12/13/2020</td><td ID="MedicationDosageFrequency_4">once a day</td><td ID="MedicationDuration_4">30</td><td ID="MedicationFormulaStrength_4">10 mg</td><td ID="MedicationDosageForm_4">tablet</td><td ID="MedicationDosageFormCode_4"></td><td ID="MedicationDosageDescription_4"></td><td ID="MedicationMedicationId_4">[id number]</td><td ID="MedicationAccount_4">[id number]</td><td ID="MedicationNpid_4">[id number]</td><td ID="MedicationAuthorFirstName_4">Keith</td><td ID="MedicationAuthorLastName_4">Arsenio</td><td ID="MedicationTaxonomyCode_4">[id number]</td><td ID="MedicationTaxonomyDesc_4">Nurse Practitioner</td><td ID="MedicationPhoneNumber_4">[phone]</td> [facility] Divalproex Sodium 500 MG Delayed Release Oral Tablet [Depako te] Depakote 09/15/2020 12:00:00 AM EDT 500 mg by mouth completed <td ID="MedicationRxNorm_5">[id number]</td><td ID="MedicationMedication_5">Depakote</td><td ID="MedicationRoute_5">by mouth</td><td ID="MedicationRouteConcept_5">H43435</td><td ID="MedicationStartDate_5">09/15/2020</td><td ID="MedicationStopDate_5">12/13/2020</td><td ID="MedicationDosageFrequency_5">every morning</td><td ID="MedicationDuration_5">30</td><td ID="MedicationFormulaStrength_5">500 mg</td><td ID="MedicationDosageForm_5">tablet,delayed release (DR/EC)</td><td ID="MedicationDosageFormCode_5"></td><td ID="MedicationDosageDescription_5"></td><td ID="MedicationMedicationId_5">[id number]</td><td ID="MedicationAccount_5">[id number]</td><td ID="MedicationNpid_5">[id number]</td><td ID="MedicationAuthorFirstName_5">Keith</td><td ID="MedicationAuthorLastName_5">Arsenio</td><td ID="MedicationTaxonomyCode_5">[id number]</td><td ID="MedicationTaxonomyDesc_5"> Nurse Practitioner</td><td ID="MedicationPhoneNumber_5">[phone]</td> [facility] ([facility]) Citalopram 20 MG Oral Tablet [Celexa] Celexa 09/15/2020 12:00:00 AM EDT 20 mg completed <td ID="Medica tionRxNorm_5">488049</td><td ID="MedicationMedication_5">Celexa</td><td ID="MedicationRoute_5"></td><td ID="MedicationRouteConcept_5"></td><td ID="MedicationStartDate_5">09/15/2020</td><td ID="MedicationStopDate_5">11/14/2020</td><td ID="MedicationDosageFrequency_5"></td><td ID="MedicationDuration_5">30</td><td ID="MedicationFormulaStrength_5">20 mg</td><td ID="MedicationDosageForm_5">tablet</td><td ID="MedicationDosageFormCode_5"></td><td ID="MedicationDosageDescription_5"></td><td ID="MedicationMedicationId_5">[id number]</td><td ID="MedicationAccount_5">[id number]</td><td ID="MedicationNpid_5">[id number]</td><td ID="MedicationAuthorFirstName_5">Keith</td><td ID="MedicationAuthorLastName_5">Arsenio</td><td ID="MedicationTaxonomyCode_5">[id number]</td><td ID="MedicationTaxonomyDesc_5">Nurse Practitioner</td><td ID="MedicationPhoneNumber_5">[phone]</td> [facility] ([facility] 10 mg 07/25/2020 12:00:00 AM EDT tablet 30 TAKE ONE TABLET BY MOUTH EVERY DAY TAKE ONE TABLET BY MOUTH EVERY DAY SOLD: 09/12/2020 [facility] 500 mg 07/04/2020 12:00:00 AM EDT tablet,delayed release (DR/EC) 60 TAKE ONE TABLET BY MOUTH TWICE A DAY TAKE ONE TABLET BY MOUTH TWICE A DAY SOLD: 09/12/2020 [facility] 20 mg 09/14/2019 12:00:00 AM EDT tablet 30 TAKE ONE TABLET BY MOUTH EVERY MORNING TAKE ONE TABLET BY MOUTH EVERY MORNING SOLD: 08/14/2020 [facility] Insurance Providers Payer name Policy type / Coverage type Policy ID Covered green party ID Covered green party's relationship to roach Policy Ro[place] Plan Information [facility] [id number] ANSI-Medicaid [id number] ANSI-Medicaid [id number] ANSI-Commercial [id number] ANSI-Not a Secondary Insurance [id number] ANSI-Commercial [id number] ANSI-Medicaid [id number] ANSI-Not a Secondary Insurance [id number] ANSI-Medicaid [id number] ANSI-Medicaid [id number] ANSI-Not a Secondary Insurance [id number] ANSI-Medicaid [id number] ANSI-Commercial [id number] [facility] [id number] ANSI-Not a Secondary Insurance [id number] ANSI-Commercial [id number] ANSI-Medicaid [id number] ANSI-Medicaid [id number] ANSI-Commercial [id number] ANSI-Medicaid [id number] ANSI-Not a Secondary Insurance [id number] ANSI-Medicaid [id number] ANSI-Not a Secondary Insurance [id number] ANSI-Commercial [id number] ANSI-Medicaid [id number] ANSI-Not a Secondary Insurance [id number] ANSI-Commercial [id number] ANSI-Not a Secondary Insurance [id number] ANSI-Medicaid [id number] ANSI-Commercial [id number] [facility] [id number] ANSI-Medicaid [id number] ANSI-Commercial [id number] ANSI-Not a Secondary Insurance [id number] SELF PAY ONLY - SP1 UNAVAILABLE SP UNAVAILABLE MEENA [id number] SP [id number] MEDICAID [id number] SP [id number] Problems, Conditions, and Diagnoses Code Display Name Description Problem Type Effective Dates Data Source(s) F29 Unspecified psychosis not du e to a substance or known physiological condition 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 11/26/2020 12:00:00 AM EST [facility] ([facility]) F33.1 Major depressive disorder, recurrent, mo derate Major Depressive Disorder, Recurrent episode, Moderate Condition 11/26/2020 12:00:00 AM EST [facility] ([facility]) Surgeries/Procedures Procedure Description Date Indications Data Source(s) MHC Telemed E/M Lvl 3--Est pt 11/26/2020 12:00:00 AM EST - 11/26/2020 12:00:00 AM EST [facility] ([facility]) MHC Telemed E/M Lvl 3--Est pt 11/26/2020 12:00:[address] [facility] ([facility]) Extended Individual Psychotherapy - 45 min 11/19/2020 12:00:00 AM EST - 11/19/2020 12:00:00 AM EST [facility] ([facility]) Extended Individual Psychotherapy - 45 min 0 12:00:00 AM EST [facility] ([facility]) Extended Individual Psychotherapy - 45 min 10/30/2020 12:00:00 AM EST - 10/30/2020 12:00:00 AM EST [facility] ([facility]) Extended Individual Psychotherapy - 45 min 0 12:00:00 AM EST [facility] ([facility]) Extended Individual Psychotherapy - 45 min 09/28/2020 12:00:00 AM EDT - 09/28/2020 12:00:00 AM EDT [facility] ([facility]) Extended Individual Psychotherapy - 45 min 0 12:00:00 AM EDT [facility] ([facility]) OFFICE OUTPATIENT VISIT 15 MINUTES 09/15 12:00:00 AM EDT - 09/15/2020 12:00:00 AM EDT [facility] ([facility]) OFFICE OUTPATIENT VISIT 15 MINUTES 09/15/2020 12:00:00 AM EDT [facility] ([facility]) TEMPMHCTelemed 30" Psychotherapy 020 12:00:00 AM EDT - 08/14/2020 12:00:00 AM EDT [facility] ([facility]) TEMPMHCTelemed 30" Psychotherapy 08/14/2020 12:00:00 A M EDT [facility] ([facility]) Results No Information Social History Code Duration Value Status Description Data Source(s ) Smoking 11/26/2020 12:00:00 AM EST Unknown if ever smoked comp leted Unknown if ever smoked [facility] ([facility]) Smoking 11/19/2020 12:00:00 AM EST Unknown if ever smoked comp leted Unknown if ever smoked [facility] ([facility]) Smoking 10/30/2020 12:00:00 AM EST Unknown if ever smoked comp leted Unknown if ever smoked [facility] ([facility]) Smoking 10/21/2020 12:00:00 AM EST Current Smoker completed Curre nt Smoker [id number] ([facility]) Smoking 09/28/2020 12:00:00 AM EDT Unknown if ever smoked comp leted Unknown if ever smoked [facility] ([facility]) Smoking 09/15/2020 12:00:00 AM EDT Unknown if ever smoked comp leted Unknown if ever smoked [facility] ([facility]) Smoking 08/14/2020 12:00:00 AM EDT Unknown if ever smoked comp leted Unknown if ever smoked [facility] ([facility]) Vital Signs ID Date Data Source UNK Name Value Range Interpretation Code Description Data Source(s) Body height 0.00 in Normal (applies to non-numeric resu lts) 0.00 in [facility] ([facility]) Body weight Measured 0.00 lbs Normal (applies to n on-numeric results) 0.00 lbs [facility] ([facility]) Body mass index (BMI) [Ratio] 0.00 kg/m2 No rmal (applies to non-numeric results) 0.00 kg/m2 [facility] ([facility]) Systolic blood pressure 0 mm[Hg] Normal (applies t o non-numeric results) 0 mm[Hg] [facility] ([facility]) Diastolic blood pressure 0 mm[Hg] Normal (applies to non-numeric results) 0 mm[Hg] [facility] ([facility]) Body height 0.00 in Normal (applies to non-numeric resu lts) 0.00 in [facility] ([facility]) Body weight Measured 0.00 lbs Normal (applies to n on-numeric results) 0.00 lbs [facility] ([facility]) Body mass index (BMI) [Ratio] 0.00 kg/m2 No rmal (applies to non-numeric results) 0.00 kg/m2 [facility] ([facility]) Systolic blood pressure 0 mm[Hg] Normal (applies t o non-numeric results) 0 mm[Hg] [facility] ([facility]) Diastolic blood pressure 0 mm[Hg] Normal (applies to non-numeric results) 0 mm[Hg] [facility] ([facility])
--- OUTSIDE RECORDS SUMMARY | 2021-10-14 03:38 | CCD ---
Author Author [facility] Organization [facility] Address Unknown Phone Unavailable Care Team Providers Care Computer Graphics Illustrator Name Role Phone Enrique Pattersonto Unavailable Gee Patterson Unavailable STANTON, H KEITH [employer]P [employer]PERATIONS Unavailable Unavailable STANTON, H KEITH [employer] Unavailable Unavailable STANTON, H KEITH [employer]P [employer]PER[employer] Unavailable Unavailable STANTON, H KEITH [employer]P OPERATIONS Unavailable Unavailable STANTON, H KEITH EVP OPERATIONS Unavailable Unavailable STANTON, H KEITH [employer]P [employer]PERATIONS Unavailable Unavailable STANTON, H KEITH EVP OPERATIONS Unavailable Unavailable STANTON, H KEITH [employer]P OPERATIONS Unavailable Unavailable STANTON, H KEITH [employer]P [employer]PER[employer] Unavailable Unavailable Re-disclosure Warning The records that [...] is protected by Article 27-F of the [facility] Public Health law. If you continue you may have access to information: Regarding HIV / AIDS; Provided by facilities licensed or operated by the [facility] Office of Mental Health; or Provided by the [facility] Office for People With Developmental Disabilities. If such information is present, then the following [facility] mandated warning applies: This information has [...] law may result in a fine or senior living sentence or both. A general authorization for the release of medical or other information is NOT sufficient authorization for further disc losure. Encounters Encounter Providers Location Date Indications Data Source(s ) Unknown [id number] [facility] [id number] 02/11/2021 12:00:00 AM EDT eCW1 ([facility]) Outpatient Attender: KEITH EID NP [facility] 11/26/2020 04:30:00 AM EST - 11/26/2020 04:30:00 AM EST [facility] ([facility]) Attender: KEITH EID NP 11/26/2020 12:00:00 AM EST [facility] ([facility]) Extended Individual Psychotherapy - 45 min Attender: Enrique camara [facility] 11/19/2020 03:00:00 AM EST - 11/19/2020 03:00:00 AM EST [facility] ([facility]) Attender: Gee Patterson 11/19/2020 12:00:00 AM EST [facility] ([facility]) Extended Individual Psychotherapy - 45 min Attender: Enrique camara [facility] 10/30/2020 02:00:00 AM EST - 10/30/2020 02:00:00 AM EST [facility] ([facility]) Attender: Gee Patterson 10/30/2020 12:00:00 AM EST [facility] ([facility]) Attender: Gee Patterson 09/28/2020 12:00:00 AM EDT [facility] ([facility]) Extended Individual Psychotherapy - 45 min Attender: Enrique Patterson [facility] 09/26/2020 04:00:00 AM EDT - 09/26/2020 04:00:00 AM EDT [facility] ([facility]) Outpatient Attender: KEITH EID NP [facility] 09/15/2020 03:00:00 AM EDT - 09/15/2020 03:00:00 AM EDT [facility] ([facility]) Attender: KEITH EID NP 09/15/2020 12:00:00 AM EDT [facility] ([facility]) Functional Status Immunizations Vaccine Date Status Description Data Source(s) COVID-19 VACCINE Ofelia 04/23/2021 12:00:00 AM EDT completed NYSIIS Vaccine Series Complete: YESThis Data wa s Submitted to [facility] Via [employer]. Medications Medication Brand Name Start Date Product [...] ONE TABLET BY MOUTH EVERY DAY AT BE [facility] NEEDED SOLD: 11/27/2020 [facility] Citalopram [...] MORNING SOLD: 11/27/2020 [facility] 250 mg 10/15/2020 12:00:00 AM EST tablet,delayed release (DR/EC) 30 TAKE ONE TABLET BY MOUTH EVERY DAY AT BEDTIME TAKE ONE TABLET BY MOUTH EVERY DAY AT BEDTIME SOLD: 11/27/2020 [facility] Trazodone Hydrochloride 50 MG Oral Tablet trazodone 2019 12:00:00 AM EST 50 mg completed <td ID="Medica tionRxNorm_3">571017</td><td ID="MedicationMedication_3">trazodone</td><td ID="MedicationRoute_3"></td><td ID="MedicationRouteConcept_3"></td><td ID="MedicationStartDate_3">10/15/2020</td><td ID="MedicationStopDate_3"></td><td ID="MedicationDosageFrequency_3">at bedtime</td><td ID="MedicationDuration_3"></td><td ID="MedicationFormulaStrength_3">50 mg</td><td ID="MedicationDosageForm_3">tablet</td><td ID="MedicationDosageFormCode_3"></td><td ID="MedicationDosageDescription_3">as needed</td><td ID="MedicationMedicationId_3">[id number]</td><td ID="MedicationAccount_3">[id number]</td><td ID="MedicationNpid_3">[id number]</td><td ID="MedicationAuthorFirstName_3">Keith</td><td ID="MedicationAuthorLastName_3">Stanton</td><td ID="MedicationTaxonomyCode_3">[id number]</td><td ID="MedicationTaxonomyDesc_3">Nurse Practitioner</td><td ID="MedicationPhoneNumber_3">[phone]</td> [facility] ([facility]) 250 mg 10/15/2020 12:00:00 AM EST tablet,delayed release (DR/EC) 30 TAKE ONE TABLET BY MOUTH EVERY DAY AT BEDTIME TAKE ONE TABLET BY MOUTH EVERY DAY AT BEDTIME SOLD: 10/21/2020 [facility] 1 mg 10/15/2020 12:00:00 AM EST tablet 30 TAKE ONE TABLET BY MOUTH EVERY DAY TAKE ONE TABLET BY MOUTH EVERY DAY SOLD: 10/21/2020 [facility] 50 mg 10/15/2020 12:00:00 AM EST tablet 30 TAKE ONE TABLET BY MOUTH EVERY DAY AT BEDTIME NEEDED TAKE ONE TABLET BY MOUTH EVERY DAY AT [facility] NEEDED SOLD: 10/21/2020 [facility] 10 mg 10/15/2020 12:00:00 AM EST tablet 30 TAKE ONE TABLET BY MOUTH EVERY DAY TAKE ONE TABLET BY MOUTH EVERY DAY SOLD: 10/21/2020 [facility] 100 mg 10/14/2020 [...] BY MOUTH EVERY MORNING SOLD: 01/05/2021 [facility] 1 mg 09/16/2020 12:00:00 AM EDT [...] MOUTH EVERY DAY AT BEDTIME SOLD: 09/18/2020 [facility] 1 mg 09/16/2020 12:00:00 AM EDT tablet 30 TAKE ONE TABLET BY MOUTH EVERY DAY TAKE ONE TABLET BY MOUTH EVERY DAY SOLD: 01/05/2021 [facility] 100 mg 09/16/2020 12:00:00 AM EDT [...] AM EDT 100 mg comp leted <td ID="MedicationRxNorm_1">072695</td><td ID="MedicationMedication_1">Wellbutrin SR</td><td ID="MedicationRoute_1"></td><td ID="MedicationRouteConcept_1"></td> <td ID="MedicationStartDate_1">09/15/2020</td><td ID="MedicationStopDate_1"></td><td ID="MedicationDosageFrequency_1">every morning</td><td ID="MedicationDuration_1"></td><td ID="MedicationFormulaStrength_1">100 mg</td><td ID="MedicationDosageForm_1">tablet sustained-release 12 hr</td><td ID="MedicationDosageFormCode_1"></td><td ID="MedicationDosageDescription_1"></td><td ID="MedicationMedicationId_1">[id number]</td><td ID="MedicationAccount_1">[id number]</td><td ID="MedicationNpid_1">[id number]</td><td ID="MedicationAuthorFirstName_1">Keith</td><td ID="MedicationAuthorLastName_1">Stanton</td><td ID="MedicationTaxonomyCode_1">[id number]</td><td ID="MedicationTaxonomyDesc_1"> Nurse Practitioner</td><td ID="MedicationPhoneNumber_1">[phone]</td> [facility] ([facility]) Risperidone 1 MG Oral Tablet [Risperdal] Risperdal 09/15/2020 12 :00:00 AM EDT 1 mg by mouth completed <td ID="Me dicationRxNorm_7">008364</td><td ID="MedicationMedication_7">Risperdal</td><td ID="MedicationRoute_7">by mouth</td><td ID="MedicationRouteConcept_7">I31291</td><td ID="MedicationStartDate_7">09/15/2020</td><td ID="MedicationStopDate_7">12/13/2020</td><td ID="MedicationDosageFrequency_7">once a day</td><td ID="MedicationDuration_7">30</td><td ID="MedicationFormulaStrength_7">1 mg</td><td ID="MedicationDosageForm_7">tablet</td><td ID="MedicationDosageFormCode_7"></td><td ID="MedicationDosageDescription_7"></td><td ID="MedicationMedicationId_7">[id number]</td><td ID="MedicationAccount_7">[id number]</td><td ID="MedicationNpid_7">[id number]</td><td ID="MedicationAuthorFirstName_7">Keith</td><td ID="MedicationAuthorLastName_7">Stanton</td><td ID="MedicationTaxonomyCode_7">[id number]</td><td ID="MedicationTaxonomyDesc_7">Nurse Practitioner</td><td ID="MedicationPhoneNumber_7">[phone]</td> [facility] ([facility]) Citalopram 10 MG Oral Tablet [Celexa] Celexa 09/15/2020 12:00:00 AM EDT 10 mg by mouth completed <td ID="Medica tionRxNorm_3">627096</td><td ID="MedicationMedication_3">Celexa</td><td ID="MedicationRoute_3">by mouth</td><td ID="MedicationRouteConcept_3">Z37547</td><td ID="MedicationStartDate_3">09/15/2020</td><td ID="MedicationStopDate_3">11/14/2020</td><td ID="MedicationDosageFrequency_3">once a day</td><td ID="MedicationDuration_3">30</td><td ID="MedicationFormulaStrength_3">10 mg</td><td ID="MedicationDosageForm_3">tablet</td><td ID="MedicationDosageFormCode_3"></td><td ID="MedicationDosageDescription_3"></td><td ID="MedicationMedicationId_3">[id number]</td><td ID="MedicationAccount_3">[id number]</td><td ID="MedicationNpid_3">[id number]</td><td ID="MedicationAuthorFirstName_3">Keith</td><td ID="MedicationAuthorLastName_3">Stanton</td><td ID="MedicationTaxonomyCode_3">[id number]</td><td ID="MedicationTaxonomyDesc_3">Nurse Practitioner</td><td ID="MedicationPhoneNumber_3">[phone]</td> [facility] ([facility]) Divalproex Sodium 500 MG Delayed Release Oral Tablet [Depako te] Depakote 09/15/2020 12:00:00 AM EDT 500 mg by mouth completed <td ID="MedicationRxNorm_4">3614694</td><td ID="MedicationMedication_4">Depakote</td><td ID="MedicationRoute_4">by mouth</td><td ID="MedicationRouteConcept_4">W75547</td><td ID="MedicationStartDate_4">09/15/2020</td><td ID="MedicationStopDate_4">11/14/2020</td><td ID="MedicationDosageFrequency_4">every morning</td><td ID="MedicationDuration_4">30</td><td ID="MedicationFormulaStrength_4">500 mg</td><td ID="MedicationDosageForm_4">tablet,delayed release (DR/EC)</td><td ID="MedicationDosageFormCode_4"></td><td ID="MedicationDosageDescription_4"></td><td ID="MedicationMedicationId_4">[id number]</td><td ID="MedicationAccount_4">[id number]</td><td ID="MedicationNpid_4">[id number]</td><td ID="MedicationAuthorFirstName_4">Keith</td><td ID="MedicationAuthorLastName_4">Stanton</td><td ID="MedicationTaxonomyCode_4">[id number]</td><td ID="MedicationTaxonomyDesc_4"> Nurse Practitioner</td><td ID="MedicationPhoneNumber_4">[phone]</td> [facility] ([facility]) Risperidone 1 MG Oral Tablet [Risperdal] Risperdal 09/15/2020 12 :00:00 AM EDT 1 mg by mouth completed <td ID="Me dicationRxNorm_6">664876</td><td ID="MedicationMedication_6">Risperdal</td><td ID="MedicationRoute_6">by mouth</td><td ID="MedicationRouteConcept_6">G36593</td><td ID="MedicationStartDate_6">09/15/2020</td><td ID="MedicationStopDate_6">11/14/2020</td><td ID="MedicationDosageFrequency_6">once a day</td><td ID="MedicationDuration_6">30</td><td ID="MedicationFormulaStrength_6">1 mg</td><td ID="MedicationDosageForm_6">tablet</td><td ID="MedicationDosageFormCode_6"></td><td ID="MedicationDosageDescription_6"></td><td ID="MedicationMedicationId_6">[id number]</td><td ID="MedicationAccount_6">[id number]</td><td ID="MedicationNpid_6">[id number]</td><td ID="MedicationAuthorFirstName_6">Keith</td><td ID="MedicationAuthorLastName_6">Stanton</td><td ID="MedicationTaxonomyCode_6">[id number]</td><td ID="MedicationTaxonomyDesc_6">Nurse Practitioner</td><td ID="MedicationPhoneNumber_6">[phone]</td> [facility] ([facility]) Citalopram 20 MG Oral Tablet [Celexa] Celexa 09/15/2020 12:00:00 AM EDT 20 mg completed <td ID="Medica tionRxNorm_6">240502</td><td ID="MedicationMedication_6">Celexa</td><td ID="MedicationRoute_6"></td><td ID="MedicationRouteConcept_6"></td><td ID="MedicationStartDate_6">09/15/2020</td><td ID="MedicationStopDate_6">12/13/2020</td><td ID="MedicationDosageFrequency_6"></td><td ID="MedicationDuration_6">30</td><td ID="MedicationFormulaStrength_6">20 mg</td><td ID="MedicationDosageForm_6">tablet</td><td ID="MedicationDosageFormCode_6"></td><td ID="MedicationDosageDescription_6"></td><td ID="MedicationMedicationId_6">[id number]</td><td ID="MedicationAccount_6">[id number]</td><td ID="MedicationNpid_6">[id number]</td><td ID="MedicationAuthorFirstName_6">Keith</td><td ID="MedicationAuthorLastName_6">Stanton</td><td ID="MedicationTaxonomyCode_6">[id number]</td><td ID="MedicationTaxonomyDesc_6">Nurse Practitioner</td><td ID="MedicationPhoneNumber_6">[phone]</td> [facility] ([facility]) Divalproex Sodium 250 MG Delayed Release Oral Tablet [Depako te] Depakote 09/15/2020 12:00:00 AM EDT 250 mg by mouth completed <td ID="MedicationRxNorm_2">[id number]</td><td ID="MedicationMedication_2">Depakote</td><td ID="MedicationRoute_2">by mouth</td><td ID="MedicationRouteConcept_2">C14263</td><td ID="MedicationStartDate_2">09/15/2020</td><td ID="MedicationStopDate_2"></td><td ID="MedicationDosageFrequency_2">at bedtime</td><td ID="MedicationDuration_2"></td><td ID="MedicationFormulaStrength_2">250 mg</td><td ID="MedicationDosageForm_2">tablet,delayed release (DR/EC)</td><td ID="MedicationDosageFormCode_2"></td><td ID="MedicationDosageDescription_2"></td><td ID="MedicationMedicationId_2">35634</td><td ID="MedicationAccount_2">[id number]</td><td ID="MedicationNpid_2">[id number]</td><td ID="MedicationAuthorFirstName_2">Keith</td><td ID="MedicationAuthorLastName_2">Stanton</td><td ID="MedicationTaxonomyCode_2">[id number]</td><td ID="MedicationTaxonomyDesc_2"> Nurse Practitioner</td><td ID="MedicationPhoneNumber_2">[phone]</td> [facility] ([facility]) Citalopram 10 MG Oral Tablet [Celexa] Celexa 09/15/2020 12:00:00 AM EDT 10 mg by mouth completed <td ID="Medica tionRxNorm_4">912561</td><td ID="MedicationMedication_4">Celexa</td><td ID="MedicationRoute_4">by mouth</td><td ID="MedicationRouteConcept_4">H61174</td><td ID="MedicationStartDate_4">09/15/2020</td><td ID="MedicationStopDate_4">12/13/2020</td><td ID="MedicationDosageFrequency_4">once a day</td><td ID="MedicationDuration_4">30</td><td ID="MedicationFormulaStrength_4">10 mg</td><td ID="MedicationDosageForm_4">tablet</td><td ID="MedicationDosageFormCode_4"></td><td ID="MedicationDosageDescription_4"></td><td ID="MedicationMedicationId_4">[id number]</td><td ID="MedicationAccount_4">[id number]</td><td ID="MedicationNpid_4">[id number]</td><td ID="MedicationAuthorFirstName_4">Keith</td><td ID="MedicationAuthorLastName_4">Stanton</td><td ID="MedicationTaxonomyCode_4">[id number]</td><td ID="MedicationTaxonomyDesc_4">Nurse Practitioner</td><td ID="MedicationPhoneNumber_4">[phone]</td> [facility] ([facility]) Divalproex Sodium 500 MG Delayed Release Oral Tablet [Depako te] Depakote 09/15/2020 12:00:00 AM EDT 500 mg by mouth completed <td ID="MedicationRxNorm_5">1848179</td><td ID="MedicationMedication_5">Depakote</td><td ID="MedicationRoute_5">by mouth</td><td ID="MedicationRouteConcept_5">Z34194</td><td ID="MedicationStartDate_5">09/15/2020</td><td ID="MedicationStopDate_5">12/13/2020</td><td ID="MedicationDosageFrequency_5">every morning</td><td ID="MedicationDuration_5">30</td><td ID="MedicationFormulaStrength_5">500 mg</td><td ID="MedicationDosageForm_5">tablet,delayed release (DR/EC)</td><td ID="MedicationDosageFormCode_5"></td><td ID="MedicationDosageDescription_5"></td><td ID="MedicationMedicationId_5">[id number]</td><td ID="MedicationAccount_5">[id number]</td><td ID="MedicationNpid_5">[id number]</td><td ID="MedicationAuthorFirstName_5">Keith</td><td ID="MedicationAuthorLastName_5">Stanton</td><td ID="MedicationTaxonomyCode_5">[id number]</td><td ID="MedicationTaxonomyDesc_5"> Nurse Practitioner</td><td ID="MedicationPhoneNumber_5">[phone]</td> [facility] ([facility]) Citalopram 20 MG Oral Tablet [Celexa] Celexa 09/15/2020 12:00:00 AM EDT 20 mg completed <td ID="Medica tionRxNorm_5">374713</td><td ID="MedicationMedication_5">Celexa</td><td ID="MedicationRoute_5"></td><td ID="MedicationRouteConcept_5"></td><td ID="MedicationStartDate_5">09/15/2020</td><td ID="MedicationStopDate_5">11/14/2020</td><td ID="MedicationDosageFrequency_5"></td><td ID="MedicationDuration_5">30</td><td ID="MedicationFormulaStrength_5">20 mg</td><td ID="MedicationDosageForm_5">tablet</td><td ID="MedicationDosageFormCode_5"></td><td ID="MedicationDosageDescription_5"></td><td ID="MedicationMedicationId_5">[id number]</td><td ID="MedicationAccount_5">[id number]</td><td ID="MedicationNpid_5">[id number]</td><td ID="MedicationAuthorFirstName_5">Keith</td><td ID="MedicationAuthorLastName_5">Stanton</td><td ID="MedicationTaxonomyCode_5">[id number]</td><td ID="MedicationTaxonomyDesc_5">Nurse Practitioner</td><td ID="MedicationPhoneNumber_5">[phone]</td> [facility] ([facility]) 10 mg 07/25/2020 12:00:00 AM EDT tablet [...] type / Coverage type Policy ID Covered alliance party ID Covered alliance party's relationship to roach Policy Roach Plan Information [facility]AN [facility] [id number] ANSI-Medicaid [id number] ANSI-Medicaid [id number] ANSI-Commercial [id number] ANSI-Not a Secondary Insurance [id number] ANSI-Commercial [id number] ANSI-Medicaid [id number] ANSI-Not a Secondary Insurance [id number] ANSI-Medicaid [id number] ANSI-Medicaid [id number] ANSI-Not a Secondary Insurance [id number] ANSI-Medicaid [id number] ANSI-Commercial [id number] [facility] [id number] ANSI-Not a Secondary Insurance [id number] ANSI-Commercial [id number] ANSI-Medicaid [id number] ANSI-Medicaid [id number] ANSI-Commercial [id number] ANSI-Medicaid [id number] ANSI-Not a Secondary Insurance [id number] ANSI-Medicaid [id number] ANSI-Not a Secondary Insurance [id number] ANSI-Commercial [id number] ANSI-Medicaid [id number] ANSI-Not a Secondary Insurance [id number] ANSI-Commercial [id number] ANSI-Not a Secondary Insurance [id number] ANSI-Medicaid [id number] ANSI-Commercial [id number] MEENA [id number] SP [id number] ANSI-Medicaid [id number] ANSI-Commercial [id number] ANSI-Not a Secondary Insurance [id number] SELF PAY ONLY - SP1 UNAVAILABLE SP UNAVAILABLE MEENA [id number] SP [id number] MEDICAID [id number] SP [id number] Problems, Conditions, and Diagnoses Code Display Name Description Problem Type Effective Dates Data Source(s) F29 Unspecified psychosis not du e to a substance or known physiological condition 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 11/26/2020 12:00:00 AM EST [facility] ([facility]) F33.1 Major depressive disorder, recurrent, mo derate Major Depressive Disorder, Recurrent episode, Moderate Condition 11/26/2020 12:00:00 AM EST [facility] ([facility]) Surgeries/Procedures Procedure Description Date Indications Data Source(s) MHC Telemed E/M Lvl 3--Est pt 11/26/2020 12:00:00 AM EST - 11/26/2020 12:00:00 AM EST [facility] ([facility]) MHC Telemed E/M Lvl 3--Est pt 11/26/2020 12:00:[address] [facility] ([facility]) Extended Individual Psychotherapy - 45 min 11/19/2020 12:00:00 AM EST - 11/19/2020 12:00:00 AM EST [facility] ([facility]) Extended Individual Psychotherapy - 45 min 0 12:00:00 AM EST [facility] ([facility]) Extended Individual Psychotherapy - 45 min 10/30/2020 12:00:00 AM EST - 10/30/2020 12:00:00 AM EST [facility] ([facility]) Extended Individual Psychotherapy - 45 min 0 12:00:00 AM EST [facility] ([facility]) Extended Individual Psychotherapy - 45 min 09/28/2020 12:00:00 AM EDT - 09/28/2020 12:00:00 AM EDT [facility] ([facility]) Extended Individual Psychotherapy - 45 min 0 12:00:00 AM EDT [facility] ([facility]) OFFICE OUTPATIENT VISIT 15 MINUTES 09/15 12:00:00 AM EDT - 09/15/2020 12:00:00 AM EDT [facility] ([facility]) OFFICE OUTPATIENT VISIT 15 MINUTES 09/15/2020 12:00:00 AM EDT [facility] ([facility]) Results No Information Social History Code Duration Value Status Description Data Source(s ) Smoking 11/26/2020 12:00:00 AM EST Unknown if ever smoked comp leted Unknown if ever smoked [facility] ([facility]) Smoking 11/19/2020 12:00:00 AM EST Unknown if ever smoked comp leted Unknown if ever smoked [facility] ([facility]) Smoking 10/30/2020 12:00:00 AM EST Unknown if ever smoked comp leted Unknown if ever smoked [facility] ([facility]) Smoking 10/21/2020 12:00:00 AM EST Current Smoker completed Ja nt Smoker [email or web address] ([facility]) Smoking 09/28/2020 12:00:00 AM EDT Unknown if ever smoked comp leted Unknown if ever smoked [facility] ([facility]) Smoking 09/15/2020 12:00:00 AM EDT Unknown if ever smoked comp leted Unknown if ever smoked [facility] ([facility]) Vital Signs ID Date Data Source UNK Name Value Range Interpretation Code Description Data Source(s) Body height 0.00 in Normal (applies to non-numeric resu lts) 0.00 in [facility] ([facility]) Body weight Measured 0.00 lbs Normal (applies to n on-numeric results) 0.00 lbs [facility] ([facility]) Body mass index (BMI) [Ratio] 0.00 kg/m2 No rmal (applies to non-numeric results) 0.00 kg/m2 [facility] ([facility]) Systolic blood pressure 0 mm[Hg] Normal (applies t o non-numeric results) 0 mm[Hg] [facility] ([facility]) Diastolic blood pressure 0 mm[Hg] Normal (applies to non-numeric results) 0 mm[Hg] [facility] ([facility]) Body height 0.00 in Normal (applies to non-numeric resu lts) 0.00 in [facility] ([facility]) Body weight Measured 0.00 lbs Normal (applies to n on-numeric results) 0.00 lbs [facility] ([facility]) Body mass index (BMI) [Ratio] 0.00 kg/m2 No rmal (applies to non-numeric results) 0.00 kg/m2 [facility] ([facility]) Systolic blood pressure 0 mm[Hg] Normal (applies t o non-numeric results) 0 mm[Hg] [place] [facility] Diastolic blood pressure 0 mm[Hg] Normal (applies to non-numeric results) 0 mm[Hg] [facility] ([facility])
== END 2021-10-14 04:47 | disposition left against medical advice (07) ==
LOC: M ED 23:20
DX: Z53.21 Procedure and treatment not carried out due to patient leaving prior to being seen by health care provider (principal)

== ENCOUNTER 2021-10-21 16:50 | Inpatient (IN) | payer MEDICAID, OTHER ==
[~2021-10-21] VITALS: Ht 177.8 cm; Wt 134.0 kg
--- OUTSIDE RECORDS SUMMARY | 2021-10-21 17:04 | CCD ---
Author Author [facility] Organization [facility] Address Unknown Phone Unavailable Care Team Providers Care Magnaflux Operator Name Role Phone LeonardoEnriqueto Unavailable LeonardoEnriqueto Unavailable ARSENIO, H KEITH KEEL PRESS OPERATOR Unavailable Unavailable ARSENIO, H KEITH KEEL PRESS OPERATOR Unavailable Unavailable ARSENIO, H KEITH KEEL PRESS OPERATOR Unavailable Unavailable ARSENIO, H KEITH KEEL PRESS OPERATOR Unavailable Unavailable ARSENIO, H KEITH KEEL PRESS OPERATOR Unavailable Unavailable ARSENIO, H KEITH KEEL PRESS OPERATOR Unavailable Unavailable ARSENIO, H KEITH KEEL PRESS OPERATOR Unavailable Unavailable ARSENIO, H KEITH KEEL PRESS OPERATOR Unavailable Unavailable ARSENIO, H KEITH KEEL PRESS OPERATOR Unavailable Unavailable Re-disclosure Warning The records that [...] is protected by Article 27-F of the [facility] Public Health law. If you continue you may have access to information: Regarding HIV / AIDS; Provided by facilities licensed or operated by the [facility] Office of Mental Health; or Provided by the [facility] Office for People With Developmental Disabilities. If such information is present, then the following [facility] mandated warning applies: This information has [...] law may result in a fine or chcf sentence or both. A general authorization for the release of medical or other information is NOT sufficient authorization for further disc losure. Encounters Encounter Providers Location Date Indications Data Source(s ) Unknown [id number] [facility], [facility] [id number] 02/11/2021 12:00:00 AM EDT eCW1 ([facility]) Outpatient Attender: KEITH EID NP [facility] 11/26/2020 04:30:00 AM EST - 11/26/2020 04:30:00 AM EST [facility] ([facility]) Attender: KEITH EID NP 11/26/2020 12:00:00 AM EST [facility] ([facility]) Extended Individual Psychotherapy - 45 min Attender: Enrique camara [facility] 11/19/2020 03:00:00 AM EST - 11/19/2020 03:00:00 AM EST [facility] ([facility]) Attender: Gee Patterson 11/19/2020 12:00:00 AM EST [facility] ([facility]) Extended Individual Psychotherapy - 45 min Attender: Enrique camara [facility] 10/30/2020 02:00:00 AM EST - 10/30/2020 02:00:00 AM EST [facility] ([facility]) Attender: Gee Patterson 10/30/2020 12:00:00 AM EST [facility] ([facility]) Attender: Gee Patterson 09/28/2020 12:00:00 AM EDT [facility] ([facility]) Extended Individual Psychotherapy - 45 min Attender: Enrique Patterson [facility] 09/26/2020 04:00:00 AM EDT - 09/26/2020 04:00:00 AM EDT [facility] ([facility]) Outpatient Attender: KEITH EID NP [facility] [place] 09/15/2020 03:00:00 AM EDT - 09/15/2020 03:00:00 AM EDT [facility] ([facility]) Attender: KEITH EID NP 09/15/2020 12:00:00 AM EDT [facility] ([facility]) Functional Status Immunizations Vaccine Date Status Description Data Source(s) COVID-19 VACCINE Of[facility] 04/23/2021 12:00:00 AM EDT completed NYSIIS Vaccine Series Complete: YESThis Data wa s Submitted to [facility] Via [employer]. Medications Medication Brand Name Start Date Product [...] MOUTH EVERY DAY SOLD: 01/05/2021 [facility] 10 mg 10/15/2020 12:00:00 AM EST [...] TABLET BY MOUTH EVERY DAY AT BE REPLACED BY [facility] NEEDED SOLD: 11/27/2020 [facility] Citalopram [...] AM EST 50 mg completed <td ID="Medica tionRxNorm_3">019018</td><td ID="MedicationMedication_3">trazodone</td><td ID="MedicationRoute_3"></td><td ID="MedicationRouteConcept_3"></td><td ID="MedicationStartDate_3">10/15/2020</td><td ID="MedicationStopDate_3"></td><td ID="MedicationDosageFrequency_3">at bedtime</td><td ID="MedicationDuration_3"></td><td ID="MedicationFormulaStrength_3">50 mg</td><td ID="MedicationDosageForm_3">tablet</td><td ID="MedicationDosageFormCode_3"></td><td ID="MedicationDosageDescription_3">as needed</td><td ID="MedicationMedicationId_3">[id number]</td><td ID="MedicationAccount_3">[id number]</td><td ID="MedicationNpid_3">[id number]</td><td ID="MedicationAuthorFirstName_3">Keith</td><td ID="MedicationAuthorLastName_3">Arsenio</td><td ID="MedicationTaxonomyCode_3">[id number]</td><td ID="MedicationTaxonomyDesc_3">Nurse Practitioner</td><td ID="MedicationPhoneNumber_3">[phone]</td> [facility] ([facility]) 250 mg 10/15/2020 12:00:00 AM EST tablet,delayed [...] ONE TABLET BY MOUTH EVERY DAY AT [facility] NEEDED SOLD: 10/21/2020 [facility] [...] AM EDT 100 mg comp leted <td ID="MedicationRxNorm_1">552459</td><td ID="MedicationMedication_1">Wellbutrin SR</td><td ID="MedicationRoute_1"></td><td ID="MedicationRouteConcept_1"></td> <td ID="MedicationStartDate_1">09/15/2020</td><td ID="MedicationStopDate_1"></td><td ID="MedicationDosageFrequency_1">every morning</td><td ID="MedicationDuration_1"></td><td ID="MedicationFormulaStrength_1">100 mg</td><td ID="MedicationDosageForm_1">tablet sustained-release 12 hr</td><td ID="MedicationDosageFormCode_1"></td><td ID="MedicationDosageDescription_1"></td><td ID="MedicationMedicationId_1">[id number]</td><td ID="MedicationAccount_1">[id number]</td><td ID="MedicationNpid_1">[id number]</td><td ID="MedicationAuthorFirstName_1">Keith</td><td ID="MedicationAuthorLastName_1">Arsenio</td><td ID="MedicationTaxonomyCode_1">[id number]</td><td ID="MedicationTaxonomyDesc_1"> Nurse Practitioner</td><td ID="MedicationPhoneNumber_1">[phone]</td> [facility] ([facility]) Risperidone 1 MG Oral Tablet [Risperdal] Risperdal 09/15/2020 12 :00:00 AM EDT 1 mg by mouth completed <td ID="Me dicationRxNorm_7">152804</td><td ID="MedicationMedication_7">Risperdal</td><td ID="MedicationRoute_7">by mouth</td><td ID="MedicationRouteConcept_7">P15883</td><td ID="MedicationStartDate_7">09/15/2020</td><td ID="MedicationStopDate_7">12/13/2020</td><td ID="MedicationDosageFrequency_7">once a day</td><td ID="MedicationDuration_7">30</td><td ID="MedicationFormulaStrength_7">1 mg</td><td ID="MedicationDosageForm_7">tablet</td><td ID="MedicationDosageFormCode_7"></td><td ID="MedicationDosageDescription_7"></td><td ID="MedicationMedicationId_7">[id number]</td><td ID="MedicationAccount_7">[id number]</td><td ID="MedicationNpid_7">[id number]</td><td ID="MedicationAuthorFirstName_7">Keith</td><td ID="MedicationAuthorLastName_7">Arsenio</td><td ID="MedicationTaxonomyCode_7">[id number]</td><td ID="MedicationTaxonomyDesc_7">Nurse Practitioner</td><td ID="MedicationPhoneNumber_7">[phone]</td> [facility] ([facility]) Citalopram 10 MG Oral Tablet [Celexa] Celexa 09/15/2020 12:00:00 AM EDT 10 mg by mouth completed <td ID="Medica tionRxNorm_3">170652</td><td ID="MedicationMedication_3">Celexa</td><td ID="MedicationRoute_3">by mouth</td><td ID="MedicationRouteConcept_3">L34164</td><td ID="MedicationStartDate_3">09/15/2020</td><td ID="MedicationStopDate_3">11/14/2020</td><td ID="MedicationDosageFrequency_3">once a day</td><td ID="MedicationDuration_3">30</td><td ID="MedicationFormulaStrength_3">10 mg</td><td ID="MedicationDosageForm_3">tablet</td><td ID="MedicationDosageFormCode_3"></td><td ID="MedicationDosageDescription_3"></td><td ID="MedicationMedicationId_3">[id number]</td><td ID="MedicationAccount_3">[id number]</td><td ID="MedicationNpid_3">[id number]</td><td ID="MedicationAuthorFirstName_3">Keith</td><td ID="MedicationAuthorLastName_3">Arsenio</td><td ID="MedicationTaxonomyCode_3">[id number]</td><td ID="MedicationTaxonomyDesc_3">Nurse Practitioner</td><td ID="MedicationPhoneNumber_3">[phone]</td> [facility] ([facility]) Divalproex Sodium 500 MG Delayed Release Oral Tablet [Depako te] Depakote 09/15/2020 12:00:00 AM EDT 500 mg by mouth completed <td ID="MedicationRxNorm_4">[id number]</td><td ID="MedicationMedication_4">Depakote</td><td ID="MedicationRoute_4">by mouth</td><td ID="MedicationRouteConcept_4">H46045</td><td ID="MedicationStartDate_4">09/15/2020</td><td ID="MedicationStopDate_4">11/14/2020</td><td ID="MedicationDosageFrequency_4">every morning</td><td ID="MedicationDuration_4">30</td><td ID="MedicationFormulaStrength_4">500 mg</td><td ID="MedicationDosageForm_4">tablet,delayed release (DR/EC)</td><td ID="MedicationDosageFormCode_4"></td><td ID="MedicationDosageDescription_4"></td><td ID="MedicationMedicationId_4">[id number]</td><td ID="MedicationAccount_4">[id number]</td><td ID="MedicationNpid_4">[id number]</td><td ID="MedicationAuthorFirstName_4">Keiht</td><td ID="MedicationAuthorLastName_4">Arsenio</td><td ID="MedicationTaxonomyCode_4">[id number]</td><td ID="MedicationTaxonomyDesc_4"> Nurse Practitioner</td><td ID="MedicationPhoneNumber_4">[phone]</td> [facility] ([facility]) Risperidone 1 MG Oral Tablet [Risperdal] Risperdal 09/15/2020 12 :00:00 AM EDT 1 mg by mouth completed <td ID="Me dicationRxNorm_6">044367</td><td ID="MedicationMedication_6">Risperdal</td><td ID="MedicationRoute_6">by mouth</td><td ID="MedicationRouteConcept_6">X12043</td><td ID="MedicationStartDate_6">09/15/2020</td><td ID="MedicationStopDate_6">11/14/2020</td><td ID="MedicationDosageFrequency_6">once a day</td><td ID="MedicationDuration_6">30</td><td ID="MedicationFormulaStrength_6">1 mg</td><td ID="MedicationDosageForm_6">tablet</td><td ID="MedicationDosageFormCode_6"></td><td ID="MedicationDosageDescription_6"></td><td ID="MedicationMedicationId_6">[id number]</td><td ID="MedicationAccount_6">[id number]</td><td ID="MedicationNpid_6">[id number]</td><td ID="MedicationAuthorFirstName_6">Keith</td><td ID="MedicationAuthorLastName_6">Arsenio</td><td ID="MedicationTaxonomyCode_6">[id number]</td><td ID="MedicationTaxonomyDesc_6">Nurse Practitioner</td><td ID="MedicationPhoneNumber_6">[phone]</td> [facility] ([facility]) Citalopram 20 MG Oral Tablet [Celexa] Celexa 09/15/2020 12:00:00 AM EDT 20 mg completed <td ID="Medica tionRxNorm_6">333303</td><td ID="MedicationMedication_6">Celexa</td><td ID="MedicationRoute_6"></td><td ID="MedicationRouteConcept_6"></td><td ID="MedicationStartDate_6">09/15/2020</td><td ID="MedicationStopDate_6">12/13/2020</td><td ID="MedicationDosageFrequency_6"></td><td ID="MedicationDuration_6">30</td><td ID="MedicationFormulaStrength_6">20 mg</td><td ID="MedicationDosageForm_6">tablet</td><td ID="MedicationDosageFormCode_6"></td><td ID="MedicationDosageDescription_6"></td><td ID="MedicationMedicationId_6">[id number]</td><td ID="MedicationAccount_6">[id number]</td><td ID="MedicationNpid_6">[id number]</td><td ID="MedicationAuthorFirstName_6">Keith</td><td ID="MedicationAuthorLastName_6">Arsenio</td><td ID="MedicationTaxonomyCode_6">[id number]</td><td ID="MedicationTaxonomyDesc_6">Nurse Practitioner</td><td ID="MedicationPhoneNumber_6">[phone]</td> [facility] ([facility]) Divalproex Sodium 250 MG Delayed Release Oral Tablet [Depako te] Depakote 09/15/2020 12:00:00 AM EDT 250 mg by mouth completed <td ID="MedicationRxNorm_2">[id number]</td><td ID="MedicationMedication_2">Depakote</td><td ID="MedicationRoute_2">by mouth</td><td ID="MedicationRouteConcept_2">J43612</td><td ID="MedicationStartDate_2">09/15/2020</td><td ID="MedicationStopDate_2"></td><td ID="MedicationDosageFrequency_2">at bedtime</td><td ID="MedicationDuration_2"></td><td ID="MedicationFormulaStrength_2">250 mg</td><td ID="MedicationDosageForm_2">tablet,delayed release (DR/EC)</td><td ID="MedicationDosageFormCode_2"></td><td ID="MedicationDosageDescription_2"></td><td ID="MedicationMedicationId_2">[id number]</td><td ID="MedicationAccount_2">[id number]</td><td ID="MedicationNpid_2">[id number]</td><td ID="MedicationAuthorFirstName_2">Keith</td><td ID="MedicationAuthorLastName_2">Arsenio</td><td ID="MedicationTaxonomyCode_2">[id number]</td><td ID="MedicationTaxonomyDesc_2"> Nurse Practitioner</td><td ID="MedicationPhoneNumber_2">[phone]</td> [facility] ([facility]) Citalopram 10 MG Oral Tablet [Celexa] Celexa 09/15/2020 12:00:00 AM EDT 10 mg by mouth completed <td ID="Medica tionRxNorm_4">750354</td><td ID="MedicationMedication_4">Celexa</td><td ID="MedicationRoute_4">by mouth</td><td ID="MedicationRouteConcept_4">R68818</td><td ID="MedicationStartDate_4">09/15/2020</td><td ID="MedicationStopDate_4">12/13/2020</td><td ID="MedicationDosageFrequency_4">once a day</td><td ID="MedicationDuration_4">30</td><td ID="MedicationFormulaStrength_4">10 mg</td><td ID="MedicationDosageForm_4">tablet</td><td ID="MedicationDosageFormCode_4"></td><td ID="MedicationDosageDescription_4"></td><td ID="MedicationMedicationId_4">57419</td><td ID="MedicationAccount_4">[id number]</td><td ID="MedicationNpid_4">[id number]</td><td ID="MedicationAuthorFirstName_4">Keith</td><td ID="MedicationAuthorLastName_4">Arsenio</td><td ID="MedicationTaxonomyCode_4">[id number]</td><td ID="MedicationTaxonomyDesc_4">Nurse Practitioner</td><td ID="MedicationPhoneNumber_4">[phone]</td> [facility] ([facility]) Divalproex Sodium 500 MG Delayed Release Oral Tablet [Depako te] Depakote 09/15/2020 12:00:00 AM EDT 500 mg by mouth completed <td ID="MedicationRxNorm_5">[id number]</td><td ID="MedicationMedication_5">Depakote</td><td ID="MedicationRoute_5">by mouth</td><td ID="MedicationRouteConcept_5">X98754</td><td ID="MedicationStartDate_5">09/15/2020</td><td ID="MedicationStopDate_5">12/13/2020</td><td ID="MedicationDosageFrequency_5">every morning</td><td ID="MedicationDuration_5">30</td><td ID="MedicationFormulaStrength_5">500 mg</td><td ID="MedicationDosageForm_5">tablet,delayed release (DR/EC)</td><td ID="MedicationDosageFormCode_5"></td><td ID="MedicationDosageDescription_5"></td><td ID="MedicationMedicationId_5">44395</td><td ID="MedicationAccount_5">[id number]</td><td ID="MedicationNpid_5">[id number]</td><td ID="MedicationAuthorFirstName_5">Keith</td><td ID="MedicationAuthorLastName_5">Arsenio</td><td ID="MedicationTaxonomyCode_5">[id number]</td><td ID="MedicationTaxonomyDesc_5"> Nurse Practitioner</td><td ID="MedicationPhoneNumber_5">[phone]</td> [facility] ([facility]) Citalopram 20 MG Oral Tablet [Celexa] Celexa 09/15/2020 12:00:00 AM EDT 20 mg completed <td ID="Medica tionRxNorm_5">092471</td><td ID="MedicationMedication_5">Celexa</td><td ID="MedicationRoute_5"></td><td ID="MedicationRouteConcept_5"></td><td ID="MedicationStartDate_5">09/15/2020</td><td ID="MedicationStopDate_5">11/14/2020</td><td ID="MedicationDosageFrequency_5"></td><td ID="MedicationDuration_5">30</td><td ID="MedicationFormulaStrength_5">20 mg</td><td ID="MedicationDosageForm_5">tablet</td><td ID="MedicationDosageFormCode_5"></td><td ID="MedicationDosageDescription_5"></td><td ID="MedicationMedicationId_5">78880</td><td ID="MedicationAccount_5">[id number]</td><td ID="MedicationNpid_5">[id number]</td><td ID="MedicationAuthorFirstName_5">Keith</td><td ID="MedicationAuthorLastName_5">Arsenio</td><td ID="MedicationTaxonomyCode_5">[id number]</td><td ID="MedicationTaxonomyDesc_5">Nurse Practitioner</td><td ID="MedicationPhoneNumber_5">[phone]</td> [facility] ([facility]) 10 mg 07/25/2020 12:00:00 AM EDT tablet 30 TAKE ONE TABLET BY MOUTH EVERY DAY TAKE ONE TABLET BY MOUTH EVERY DAY SOLD: 09/12/2020 [facility] 500 mg 07/04/2020 12:00:00 AM EDT tablet,delayed release (DR/EC) 60 TAKE ONE TABLET BY MOUTH TWICE A DAY TAKE ONE TABLET BY MOUTH TWICE A DAY SOLD: 09/12/2020 [facility] Insurance Providers Payer name Policy type / Coverage type Policy ID Covered libertarian ID Covered libertarian's relationship to roach Policy Roach Plan Information [facility] [id number] SP [id number] [facility] [id number] SP [id number] [facility] [id number] [facility] [id number] ANSI-Commercial [id number] ANSI-Not a Secondary Insurance [id number] ANSI-Commercial [id number] ANSI-Medicaid [id number] ANSI-Not a Secondary Insurance [id number] ANSI-Medicaid [id number] ANSI-Medicaid [id number] ANSI-Not a Secondary Insurance [id number] ANSI-Medicaid [id number] ANSI-Commercial [id number] ANSI-Not a Secondary Insurance [id number] ANSI-Commercial [id number] ANSI-Medicaid [id number] ANSI-Medicaid [id number] ANSI-Commercial [id number] ANSI-Medicaid [id number] ANSI-Not a Secondary Insurance [id number] ANSI-Medicaid [id number] ANSI-Not a Secondary Insurance [id number] ANSI-Commercial [id number] ANSI-Medicaid [id number] ANSI-Not a Secondary Insurance [id number] ANSI-Commercial [id number] ANSI-Not a Secondary Insurance [id number] ANSI-Medicaid [id number] ANSI-Commercial [id number] MEENA [id number] SP [id number] ANSI-Medicaid [id number] ANSI-Commercial [id number] ANSI-Not a Secondary Insurance [id number] SELF PAY ONLY - SP1 UNAVAILABLE SP UNAVAILABLE MEENA [id number] SP [id number] MEDICAID [id number] SP [id number] Problems, Conditions, and Diagnoses Code Display Name Description Problem Type Effective Dates Data Source(s) F29 Unspecified psychosis not du e to a substance or known physiological condition 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 11/26/2020 12:00:00 AM EST [facility] ([facility]) F33.1 Major depressive disorder, recurrent, mo derate Major Depressive Disorder, Recurrent episode, Moderate Condition 11/26/2020 12:00:00 AM EST [facility] ([facility]) Surgeries/Procedures Procedure Description Date Indications Data Source(s) [facility] Telemed E/M Lvl 3--Est pt 11/26/2020 12:00:00 AM EST - 11/26/2020 12:00:00 AM EST [facility] ([facility]) MHC Telemed E/M Lvl 3--Est pt 11/26/2020 12:00:[address] [facility] ([facility]) Extended Individual Psychotherapy - 45 min 11/19/2020 12:00:00 AM EST - 11/19/2020 12:00:00 AM EST [facility] ([facility]) Extended Individual Psychotherapy - 45 min 0 12:00:00 AM EST [facility] ([facility]) Extended Individual Psychotherapy - 45 min 10/30/2020 12:00:00 AM EST - 10/30/2020 12:00:00 AM EST [facility] ([facility]) Extended Individual Psychotherapy - 45 min 0 12:00:00 AM EST [facility] ([facility]) Extended Individual Psychotherapy - 45 min 09/28/2020 12:00:00 AM EDT - 09/28/2020 12:00:00 AM EDT [facility] ([facility]) Extended Individual Psychotherapy - 45 min 0 12:00:00 AM EDT [facility] ([facility]) OFFICE OUTPATIENT VISIT 15 MINUTES 09/15 12:00:00 AM EDT - 09/15/2020 12:00:00 AM EDT [facility] ([facility]) OFFICE OUTPATIENT VISIT 15 MINUTES 09/15/2020 12:00:00 AM EDT [facility] ([facility]) Results No Information Social History Code Duration Value Status Description Data Source(s ) Smoking 11/26/2020 12:00:00 AM EST Unknown if ever smoked comp leted Unknown if ever smoked [facility] ([facility]) Smoking 11/19/2020 12:00:00 AM EST Unknown if ever smoked comp leted Unknown if ever smoked [facility] ([facility]) Smoking 10/30/2020 12:00:00 AM EST Unknown if ever smoked comp leted Unknown if ever smoked [facility] ([facility]) Smoking 10/21/2020 12:00:00 AM EST Current Smoker completed Curre nt Smoker eCW1 ([facility]) Smoking 09/28/2020 12:00:00 AM EDT Unknown if ever smoked comp leted Unknown if ever smoked [facility] ([facility]) Smoking 09/15/2020 12:00:00 AM EDT Unknown if ever smoked comp leted Unknown if ever smoked [facility] ([facility]) Vital Signs ID Date Data Source UNK Name Value Range Interpretation Code Description Data Source(s) Body height 0.00 in Normal (applies to non-numeric resu lts) 0.00 in [facility] ([facility]) Body weight Measured 0.00 lbs Normal (applies to n on-numeric results) 0.00 lbs [facility] ([facility]) Body mass index (BMI) [Ratio] 0.00 kg/m2 No rmal (applies to non-numeric results) 0.00 kg/m2 [facility] ([facility]) Systolic blood pressure 0 mm[Hg] Normal (applies t o non-numeric results) 0 mm[Hg] [facility] ([facility]) Diastolic blood pressure 0 mm[Hg] Normal (applies to non-numeric results) 0 mm[Hg] [facility] ([facility]) Body height 0.00 in Normal (applies to non-numeric resu lts) 0.00 in [facility] ([facility]) Body weight Measured 0.00 lbs Normal (applies to n on-numeric results) 0.00 lbs [facility] ([facility]) Body mass index (BMI) [Ratio] 0.00 kg/m2 No rmal (applies to non-numeric results) 0.00 kg/m2 [facility] ([facility]) Systolic blood pressure 0 mm[Hg] Normal (applies t o non-numeric results) 0 mm[Hg] [facility] ([facility]) Diastolic blood pressure 0 mm[Hg] Normal (applies to non-numeric results) 0 mm[Hg] [facility] ([facility])
--- OUTSIDE RECORDS SUMMARY | 2021-10-21 20:34 | CCD ---
Author Author [facility] Organization [facility] Address Unknown Phone Unavailable Care Team Providers Care Drywall Metal Stud Worker Name Role Phone Gee Patterson Unavailable Gee Patterson Unavailable STANTON, H KEITH SOFTWARE TRAINER Unavailable Unavailable STANTON, H KEITH SOFTWARE TRAINER Unavailable Unavailable STANTON, H KEITH SOFTWARE TRAINER Unavailable Unavailable STANTON, H KEITH SOFTWARE TRAINER Unavailable Unavailable STANTON, H KEITH SOFTWARE TRAINER Unavailable Unavailable STANTON, H KEITH SOFTWARE TRAINER Unavailable Unavailable STANTON, H KEITH SOFTWARE TRAINER Unavailable Unavailable STANTON, H KEITH SOFTWARE TRAINER Unavailable Unavailable STANTON, H KEITH SOFTWARE TRAINER Unavailable Unavailable Re-disclosure Warning The records that [...] is protected by Article 27-F of the [facility] Public Health law. If you continue you may have access to information: Regarding HIV / AIDS; Provided by facilities licensed or operated by the [facility] Office of Mental Health; or Provided by the [facility] Office for People With Developmental Disabilities. If such information is present, then the following [facility] mandated warning applies: This information has been [...] law may result in a fine or longterm sentence or both. A general authorization for the release of medical or other information is NOT sufficient authorization for further disc losure. Encounters Encounter Providers Location Date Indications Data Source(s ) Unknown [id number] [facility] [id number] 02/11/2021 12:00:00 AM EDT eCW1 ([facility]) Outpatient Attender: KEITH EID NP [facility] 11/26/2020 04:30:00 AM EST - 11/26/2020 04:30:00 AM EST [facility] ([facility]) Attender: KEITH EID NP 11/26/2020 12:00:00 AM EST [facility] ([facility]) Extended Individual Psychotherapy - 45 min Attender: Enrique camara [facility] 11/19/2020 03:00:00 AM EST - 11/19/2020 03:00:00 AM EST [facility] ([facility]) Attender: Gee Patterson 11/19/2020 12:00:00 AM EST [facility] ([facility]) Extended Individual Psychotherapy - 45 min Attender: Enrique camara [facility] 10/30/2020 02:00:00 AM EST - 10/30/2020 02:00:00 AM EST [facility] ([facility]) Attender: Gee Patterson 10/30/2020 12:00:00 AM EST [facility] ([facility]) Attender: Gee Patterson 09/28/2020 12:00:00 AM EDT [facility] ([facility]) Extended Individual Psychotherapy - 45 min Attender: Enrique Patterson [facility] Jeb 09/26/2020 04:00:00 AM EDT - 09/26/2020 04:00:00 AM EDT [facility] ([facility]) Outpatient Attender: KEITH EID NP [facility] Manolo underwood 09/15/2020 03:00:00 AM EDT - 09/15/2020 03:00:00 AM EDT [facility] ([facility]) Attender: KEITH EID NP 09/15/2020 12:00:00 AM EDT [facility] ([facility]) Functional Status Immunizations Vaccine Date Status Description Data Source(s) COVID-19 VACCINE [place] 04/23/2021 12:00:00 AM EDT completed [facility]SIIS Vaccine Series Complete: YESThis Data wa s Submitted to [facility]. Medications Medication Brand Name Start Date Product [...] TABLET BY MOUTH EVERY DAY SOLD: 02/07/2021 [facility] 10 mg 01/05/2021 12:00:00 AM EST tablet 30 TAKE ONE TABLET BY MOUTH EVERY DAY TAKE ONE TABLET BY MOUTH EVERY DAY SOLD: 01/05/2021 [facility] 10 mg 10/15/2020 12:00:00 AM EST tablet 30 TAKE ONE TABLET BY MOUTH EVERY DAY TAKE ONE TABLET BY MOUTH EVERY DAY SOLD: 11/27/2020 [facility] 1 mg 10/15/2020 12:00:00 AM EST [...] TABLET BY MOUTH EVERY DAY AT BE [facility] NEEDED SOLD: 11/27/2020 [facility] Citalopram [...] AM EST 50 mg completed <td ID="Medica tionRxNorm_3">184811</td><td ID="MedicationMedication_3">trazodone</td><td ID="MedicationRoute_3"></td><td ID="MedicationRouteConcept_3"></td><td ID="MedicationStartDate_3">10/15/2020</td><td ID="MedicationStopDate_3"></td><td ID="MedicationDosageFrequency_3">at bedtime</td><td ID="MedicationDuration_3"></td><td ID="MedicationFormulaStrength_3">50 mg</td><td ID="MedicationDosageForm_3">tablet</td><td ID="MedicationDosageFormCode_3"></td><td ID="MedicationDosageDescription_3">as needed</td><td ID="MedicationMedicationId_3">[id number]</td><td ID="MedicationAccount_3">[id number]</td><td ID="MedicationNpid_3">[id number]</td><td ID="MedicationAuthorFirstName_3">Keith</td><td ID="MedicationAuthorLastName_3">Stanton</td><td ID="MedicationTaxonomyCode_3">[id number]</td><td ID="MedicationTaxonomyDesc_3">Nurse Practitioner</td><td ID="MedicationPhoneNumber_3">[phone]</td> [facility] ([facility]) 250 mg 10/15/2020 12:00:00 AM EST [...] ONE TABLET BY MOUTH EVERY DAY AT [facility] NEEDED SOLD: 10/21/2020 [facility] 10 mg 10/15/2020 12:00:00 AM EST tablet 30 TAKE ONE TABLET BY MOUTH EVERY DAY TAKE ONE TABLET BY MOUTH EVERY DAY SOLD: 10/21/2020 [facility] 100 mg 10/14/2020 12:00:00 AM EST tablet sustained-releas e 12 hr 30 TAKE ONE TABLET BY MOUTH EVERY MORNING TAKE ONE TABLET BY MOUTH EVERY MORNING SOLD: 10/21/2020 [facility] 100 mg 10/14/2020 [...] AM EDT 100 mg comp leted <td ID="MedicationRxNorm_1">955202</td><td ID="MedicationMedication_1">Wellbutrin SR</td><td ID="MedicationRoute_1"></td><td ID="MedicationRouteConcept_1"></td> <td ID="MedicationStartDate_1">09/15/2020</td><td ID="MedicationStopDate_1"></td><td ID="MedicationDosageFrequency_1">every morning</td><td ID="MedicationDuration_1"></td><td ID="MedicationFormulaStrength_1">100 mg</td><td ID="MedicationDosageForm_1">tablet sustained-release 12 hr</td><td ID="MedicationDosageFormCode_1"></td><td ID="MedicationDosageDescription_1"></td><td ID="MedicationMedicationId_1">[id number]</td><td ID="MedicationAccount_1">[id number]</td><td ID="MedicationNpid_1">[id number]</td><td ID="MedicationAuthorFirstName_1">Keith</td><td ID="MedicationAuthorLastName_1">Stanton</td><td ID="MedicationTaxonomyCode_1">[id number]</td><td ID="MedicationTaxonomyDesc_1"> Nurse Practitioner</td><td ID="MedicationPhoneNumber_1">[phone]</td> [facility] ([facility]) Risperidone 1 MG Oral Tablet [Risperdal] Risperdal 09/15/2020 12 :00:00 AM EDT 1 mg by mouth completed <td ID="Me dicationRxNorm_7">107821</td><td ID="MedicationMedication_7">Risperdal</td><td ID="MedicationRoute_7">by mouth</td><td ID="MedicationRouteConcept_7">H47262</td><td ID="MedicationStartDate_7">09/15/2020</td><td ID="MedicationStopDate_7">12/13/2020</td><td ID="MedicationDosageFrequency_7">once a day</td><td ID="MedicationDuration_7">30</td><td ID="MedicationFormulaStrength_7">1 mg</td><td ID="MedicationDosageForm_7">tablet</td><td ID="MedicationDosageFormCode_7"></td><td ID="MedicationDosageDescription_7"></td><td ID="MedicationMedicationId_7">[id number]</td><td ID="MedicationAccount_7">[id number]</td><td ID="MedicationNpid_7">[id number]</td><td ID="MedicationAuthorFirstName_7">Keith</td><td ID="MedicationAuthorLastName_7">Stanton</td><td ID="MedicationTaxonomyCode_7">[id number]</td><td ID="MedicationTaxonomyDesc_7">Nurse Practitioner</td><td ID="MedicationPhoneNumber_7">[phone]</td> [facility] ([facility]) Citalopram 10 MG Oral Tablet [Celexa] Celexa 09/15/2020 12:00:00 AM EDT 10 mg by mouth completed <td ID="Medica tionRxNorm_3">099329</td><td ID="MedicationMedication_3">Celexa</td><td ID="MedicationRoute_3">by mouth</td><td ID="MedicationRouteConcept_3">J92928</td><td ID="MedicationStartDate_3">09/15/2020</td><td ID="MedicationStopDate_3">11/14/2020</td><td ID="MedicationDosageFrequency_3">once a day</td><td ID="MedicationDuration_3">30</td><td ID="MedicationFormulaStrength_3">10 mg</td><td ID="MedicationDosageForm_3">tablet</td><td ID="MedicationDosageFormCode_3"></td><td ID="MedicationDosageDescription_3"></td><td ID="MedicationMedicationId_3">[id number]</td><td ID="MedicationAccount_3">[id number]</td><td ID="MedicationNpid_3">[id number]</td><td ID="MedicationAuthorFirstName_3">Keith</td><td ID="MedicationAuthorLastName_3">Stanton</td><td ID="MedicationTaxonomyCode_3">[id number]</td><td ID="MedicationTaxonomyDesc_3">Nurse Practitioner</td><td ID="MedicationPhoneNumber_3">[phone]</td> [facility] ([facility]) Divalproex Sodium 500 MG Delayed Release Oral Tablet [Depako te] Depakote 09/15/2020 12:00:00 AM EDT 500 mg by mouth completed <td ID="MedicationRxNorm_4">0163010</td><td ID="MedicationMedication_4">Depakote</td><td ID="MedicationRoute_4">by mouth</td><td ID="MedicationRouteConcept_4">S91343</td><td ID="MedicationStartDate_4">09/15/2020</td><td ID="MedicationStopDate_4">11/14/2020</td><td ID="MedicationDosageFrequency_4">every morning</td><td ID="MedicationDuration_4">30</td><td ID="MedicationFormulaStrength_4">500 mg</td><td ID="MedicationDosageForm_4">tablet,delayed release (DR/EC)</td><td ID="MedicationDosageFormCode_4"></td><td ID="MedicationDosageDescription_4"></td><td ID="MedicationMedicationId_4">[id number]</td><td ID="MedicationAccount_4">[id number]</td><td ID="MedicationNpid_4">[id number]</td><td ID="MedicationAuthorFirstName_4">Keith</td><td ID="MedicationAuthorLastName_4">Stanton</td><td ID="MedicationTaxonomyCode_4">[id number]</td><td ID="MedicationTaxonomyDesc_4"> Nurse Practitioner</td><td ID="MedicationPhoneNumber_4">[phone]</td> [facility] ([facility]) Risperidone 1 MG Oral Tablet [Risperdal] Risperdal 09/15/2020 12 :00:00 AM EDT 1 mg by mouth completed <td ID="Me dicationRxNorm_6">812447</td><td ID="MedicationMedication_6">Risperdal</td><td ID="MedicationRoute_6">by mouth</td><td ID="MedicationRouteConcept_6">E49319</td><td ID="MedicationStartDate_6">09/15/2020</td><td ID="MedicationStopDate_6">11/14/2020</td><td ID="MedicationDosageFrequency_6">once a day</td><td ID="MedicationDuration_6">30</td><td ID="MedicationFormulaStrength_6">1 mg</td><td ID="MedicationDosageForm_6">tablet</td><td ID="MedicationDosageFormCode_6"></td><td ID="MedicationDosageDescription_6"></td><td ID="MedicationMedicationId_6">[id number]</td><td ID="MedicationAccount_6">[id number]</td><td ID="MedicationNpid_6">[id number]</td><td ID="MedicationAuthorFirstName_6">Keith</td><td ID="MedicationAuthorLastName_6">Stanton</td><td ID="MedicationTaxonomyCode_6">[id number]</td><td ID="MedicationTaxonomyDesc_6">Nurse Practitioner</td><td ID="MedicationPhoneNumber_6">[phone]</td> [facility] ([facility]) Citalopram 20 MG Oral Tablet [Celexa] Celexa 09/15/2020 12:00:00 AM EDT 20 mg completed <td ID="Medica tionRxNorm_6">881507</td><td ID="MedicationMedication_6">Celexa</td><td ID="MedicationRoute_6"></td><td ID="MedicationRouteConcept_6"></td><td ID="MedicationStartDate_6">09/15/2020</td><td ID="MedicationStopDate_6">12/13/2020</td><td ID="MedicationDosageFrequency_6"></td><td ID="MedicationDuration_6">30</td><td ID="MedicationFormulaStrength_6">20 mg</td><td ID="MedicationDosageForm_6">tablet</td><td ID="MedicationDosageFormCode_6"></td><td ID="MedicationDosageDescription_6"></td><td ID="MedicationMedicationId_6">[id number]</td><td ID="MedicationAccount_6">[id number]</td><td ID="MedicationNpid_6">[id number]</td><td ID="MedicationAuthorFirstName_6">Keith</td><td ID="MedicationAuthorLastName_6">Stanton</td><td ID="MedicationTaxonomyCode_6">[id number]</td><td ID="MedicationTaxonomyDesc_6">Nurse Practitioner</td><td ID="MedicationPhoneNumber_6">[phone]</td> [facility] ([facility]) Divalproex Sodium 250 MG Delayed Release Oral Tablet [Depako te] Depakote 09/15/2020 12:00:00 AM EDT 250 mg by mouth completed <td ID="MedicationRxNorm_2">[id number]</td><td ID="MedicationMedication_2">Depakote</td><td ID="MedicationRoute_2">by mouth</td><td ID="MedicationRouteConcept_2">G50579</td><td ID="MedicationStartDate_2">09/15/2020</td><td ID="MedicationStopDate_2"></td><td ID="MedicationDosageFrequency_2">at bedtime</td><td ID="MedicationDuration_2"></td><td ID="MedicationFormulaStrength_2">250 mg</td><td ID="MedicationDosageForm_2">tablet,delayed release (DR/EC)</td><td ID="MedicationDosageFormCode_2"></td><td ID="MedicationDosageDescription_2"></td><td ID="MedicationMedicationId_2">[id number]</td><td ID="MedicationAccount_2">[id number]</td><td ID="MedicationNpid_2">[id number]</td><td ID="MedicationAuthorFirstName_2">Keith</td><td ID="MedicationAuthorLastName_2">Stanton</td><td ID="MedicationTaxonomyCode_2">[id number]</td><td ID="MedicationTaxonomyDesc_2"> Nurse Practitioner</td><td ID="MedicationPhoneNumber_2">[phone]</td> [facility] ([facility]) Citalopram 10 MG Oral Tablet [Celexa] Celexa 09/15/2020 12:00:00 AM EDT 10 mg by mouth completed <td ID="Medica tionRxNorm_4">715300</td><td ID="MedicationMedication_4">Celexa</td><td ID="MedicationRoute_4">by mouth</td><td ID="MedicationRouteConcept_4">S33828</td><td ID="MedicationStartDate_4">09/15/2020</td><td ID="MedicationStopDate_4">12/13/2020</td><td ID="MedicationDosageFrequency_4">once a day</td><td ID="MedicationDuration_4">30</td><td ID="MedicationFormulaStrength_4">10 mg</td><td ID="MedicationDosageForm_4">tablet</td><td ID="MedicationDosageFormCode_4"></td><td ID="MedicationDosageDescription_4"></td><td ID="MedicationMedicationId_4">[id number]</td><td ID="MedicationAccount_4">[id number]</td><td ID="MedicationNpid_4">[id number]</td><td ID="MedicationAuthorFirstName_4">Keith</td><td ID="MedicationAuthorLastName_4">Stanton</td><td ID="MedicationTaxonomyCode_4">[id number]</td><td ID="MedicationTaxonomyDesc_4">Nurse Practitioner</td><td ID="MedicationPhoneNumber_4">[phone]</td> [facility] ([facility]) Divalproex Sodium 500 MG Delayed Release Oral Tablet [Depako te] Depakote 09/15/2020 12:00:00 AM EDT 500 mg by mouth completed <td ID="MedicationRxNorm_5">9129514</td><td ID="MedicationMedication_5">Depakote</td><td ID="MedicationRoute_5">by mouth</td><td ID="MedicationRouteConcept_5">P63780</td><td ID="MedicationStartDate_5">09/15/2020</td><td ID="MedicationStopDate_5">12/13/2020</td><td ID="MedicationDosageFrequency_5">every morning</td><td ID="MedicationDuration_5">30</td><td ID="MedicationFormulaStrength_5">500 mg</td><td ID="MedicationDosageForm_5">tablet,delayed release (DR/EC)</td><td ID="MedicationDosageFormCode_5"></td><td ID="MedicationDosageDescription_5"></td><td ID="MedicationMedicationId_5">[id number]</td><td ID="MedicationAccount_5">[id number]</td><td ID="MedicationNpid_5">[id number]</td><td ID="MedicationAuthorFirstName_5">Keith</td><td ID="MedicationAuthorLastName_5">Stanton</td><td ID="MedicationTaxonomyCode_5">[id number]</td><td ID="MedicationTaxonomyDesc_5"> Nurse Practitioner</td><td ID="MedicationPhoneNumber_5">[phone]</td> [facility] ([facility]) Citalopram 20 MG Oral Tablet [Celexa] Celexa 09/15/2020 12:00:00 AM EDT 20 mg completed <td ID="Medica tionRxNorm_5">025150</td><td ID="MedicationMedication_5">Celexa</td><td ID="MedicationRoute_5"></td><td ID="MedicationRouteConcept_5"></td><td ID="MedicationStartDate_5">09/15/2020</td><td ID="MedicationStopDate_5">11/14/2020</td><td ID="MedicationDosageFrequency_5"></td><td ID="MedicationDuration_5">30</td><td ID="MedicationFormulaStrength_5">20 mg</td><td ID="MedicationDosageForm_5">tablet</td><td ID="MedicationDosageFormCode_5"></td><td ID="MedicationDosageDescription_5"></td><td ID="MedicationMedicationId_5">[id number]</td><td ID="MedicationAccount_5">[id number]</td><td ID="MedicationNpid_5">[id number]</td><td ID="MedicationAuthorFirstName_5">Keith</td><td ID="MedicationAuthorLastName_5">Stanton</td><td ID="MedicationTaxonomyCode_5">[id number]</td><td ID="MedicationTaxonomyDesc_5">Nurse Practitioner</td><td ID="MedicationPhoneNumber_5">[phone]</td> [facility] 10 mg 07/25/2020 12:00:00 AM EDT tablet [...] relationship to roach Policy Roach Plan Information [facility] [id number] SP [id number] [facility] [place] [id number] SP [id number] ANSI-Medicaid [id number] ANSI-Medicaid [id number] ANSI-Commercial [id number] ANSI-Not a Secondary Insurance [id number] ANSI-Commercial [id number] ANSI-Medicaid [id number] ANSI-Not a Secondary Insurance [id number] ANSI-Medicaid [id number] ANSI-Medicaid [id number] ANSI-Not a Secondary Insurance [id number] ANSI-Medicaid [id number] ANSI-Commercial [id number] ANSI-Not a Secondary Insurance [id number] ANSI-Commercial [id number] ANSI-Medicaid [id number] ANSI-Medicaid [id number] ANSI-Commercial [id number] ANSI-Medicaid [id number] ANSI-Not a Secondary Insurance [id number] ANSI-Medicaid [id number] ANSI-Not a Secondary Insurance [id number] ANSI-Commercial [id number] ANSI-Medicaid [id number] ANSI-Not a Secondary Insurance [id number] ANSI-Commercial [id number] ANSI-Not a Secondary Insurance [id number] ANSI-Medicaid [id number] ANSI-Commercial [id number] MEENA [id number] SP [id number] ANSI-Medicaid [id number] ANSI-Commercial [id number] ANSI-Not a Secondary Insurance [id number] SELF PAY ONLY - SP1 UNAVAILABLE SP UNAVAILABLE MEENA [id number] SP [id number] MEDICAID [id number] SP [id number] Problems, Conditions, and Diagnoses Code Display Name Description Problem Type Effective Dates Data Source(s) F29 Unspecified psychosis not du e to a substance or known physiological condition 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 11/26/2020 12:00:00 AM EST [facility] ([facility]) F33.1 Major depressive disorder, recurrent, mo derate Major Depressive Disorder, Recurrent episode, Moderate Condition 11/26/2020 12:00:00 AM EST [facility] ([facility]) Surgeries/Procedures Procedure Description Date Indications Data Source(s) MHC Telemed E/M Lvl 3--Est pt 11/26/2020 12:00:00 AM EST - 11/26/2020 12:00:00 AM EST [facility] ([facility]) MHC Telemed E/M Lvl 3--Est pt 11/26/2020 12:00:[address] [facility] ([facility]) Extended Individual Psychotherapy - 45 min 11/19/2020 12:00:00 AM EST - 11/19/2020 12:00:00 AM EST [facility] ([facility]) Extended Individual Psychotherapy - 45 min 0 12:00:00 AM EST [facility] ([facility]) Extended Individual Psychotherapy - 45 min 10/30/2020 12:00:00 AM EST - 10/30/2020 12:00:00 AM EST [facility] ([facility]) Extended Individual Psychotherapy - 45 min 0 12:00:00 AM EST [facility] ([facility]) Extended Individual Psychotherapy - 45 min 09/28/2020 12:00:00 AM EDT - 09/28/2020 12:00:00 AM EDT [facility] ([facility]) Extended Individual Psychotherapy - 45 min 0 12:00:00 AM EDT [facility] ([facility]) OFFICE OUTPATIENT VISIT 15 MINUTES 09/15 12:00:00 AM EDT - 09/15/2020 12:00:00 AM EDT [facility] ([facility]) OFFICE OUTPATIENT VISIT 15 MINUTES 09/15/2020 12:00:00 AM EDT [facility] ([facility]) Results No Information Social History Code Duration Value Status Description Data Source(s ) Smoking 11/26/2020 12:00:00 AM EST Unknown if ever smoked comp leted Unknown if ever smoked [facility] ([facility]) Smoking 11/19/2020 12:00:00 AM EST Unknown if ever smoked comp leted Unknown if ever smoked [facility] ([facility]) Smoking 10/30/2020 12:00:00 AM EST Unknown if ever smoked comp leted Unknown if ever smoked [facility] ([facility]) Smoking 10/21/2020 12:00:00 AM EST Current Smoker completed Curre nt Smoker eCW1 ([facility]) Smoking 09/28/2020 12:00:00 AM EDT Unknown if ever smoked comp leted Unknown if ever smoked [facility] ([facility]) Smoking 09/15/2020 12:00:00 AM EDT Unknown if ever smoked comp leted Unknown if ever smoked [facility] ([facility]) Vital Signs ID Date Data Source UNK Name Value Range Interpretation Code Description Data Source(s) Body height 0.00 in Normal (applies to non-numeric resu lts) 0.00 in [facility] ([facility]) Body weight Measured 0.00 lbs Normal (applies to n on-numeric results) 0.00 lbs [facility] ([facility]) Body mass index (BMI) [Ratio] 0.00 kg/m2 No rmal (applies to non-numeric results) 0.00 kg/m2 [facility] ([facility]) Systolic blood pressure 0 mm[Hg] Normal (applies t o non-numeric results) 0 mm[Hg] [facility] ([facility]) Diastolic blood pressure 0 mm[Hg] Normal (applies to non-numeric results) 0 mm[Hg] [facility] ([facility]) Body height 0.00 in Normal (applies to non-numeric resu lts) 0.00 in [facility] ([facility]) Body weight Measured 0.00 lbs Normal (applies to n on-numeric results) 0.00 lbs [facility] ([facility]) Body mass index (BMI) [Ratio] 0.00 kg/m2 No rmal (applies to non-numeric results) 0.00 kg/m2 [facility] ([facility]) Systolic blood pressure 0 mm[Hg] Normal (applies t o non-numeric results) 0 mm[Hg] [facility] ([facility]) Diastolic blood pressure 0 mm[Hg] Normal (applies to non-numeric results) 0 mm[Hg] [facility] ([facility])
[2021-10-21 22:50] LABS: HEMOGLOBIN 17.9 g/dl (13.5-17.5); MEAN CORPUSCULAR HEMOGLOBIN 29.1 pg (27.0-33.0); MEAN CORPUSCULAR HGB CONC 34.4 g/dl (32.0-36.5); MEAN CORPUSCULAR VOLUME 84.6 fl (80.0-96.0); PLATELET COUNT, AUTOMATED 257 10^3/uL (150-450); RED BLOOD COUNT 6.15 10^6/uL (4.30-6.10); WHITE BLOOD COUNT 12.3 10^3/uL (4.0-10.0)
[2021-10-21 23:26] LABS: ACETAMINOPHEN LEVEL < 2.0 UG/ML (10.0-30.0); ALT/SGPT 54 U/L (12-78); BILIRUBIN,DIRECT 0.4 MG/DL (0.0-0.2); BILIRUBIN,TOTAL 1.4 MG/DL (0.2-1.0); BLOOD UREA NITROGEN 10 MG/DL (7-18); CALCIUM LEVEL 9.3 MG/DL (8.5-10.1); CARBON DIOXIDE LEVEL 28 MEQ/L (21-32); CHLORIDE LEVEL 105 MEQ/L (98-107); CREATININE FOR GFR 1.22 MG/DL (0.70-1.30); ETHYL ALCOHOL (ETHANOL) < 0.003 % (0.000-0.010); GLOMERULAR FILTRATION RATE > 60.0 (>60); GLUCOSE, FASTING 104 MG/DL (70-100); POTASSIUM SERUM 4.2 MEQ/L (3.5-5.1); SALICYLATE LEVEL 2.5 MG/DL (5.0-30.0); SODIUM LEVEL 140 MEQ/L (136-145); TOTAL PROTEIN 7.5 GM/DL (6.4-8.2)
[2021-10-22 02:33] LABS: AMPHETAMINES LEVEL URINE NEGATIVE (NEGATIVE); BARBITURATES URINE NEGATIVE (NEGATIVE); BENZODIAZEPINES URINE NEGATIVE (NEGATIVE); CANNABINOIDS URINE POSITIVE (NEGATIVE); COCAINE METABOLITE URINE NEGATIVE (NEGATIVE); METHADONE URINE NEGATIVE (NEGATIVE); OPIATES URINE NEGATIVE (NEGATIVE); PHENCYCLIDINE URINE NEGATIVE (NEGATIVE)
[2021-10-22 03:36] LABS: RSV AMPLIFICATION NEGATIVE (NEGATIVE)
[2021-10-22] MEDS ORDERED: MAALOX 30 ML SUSP *UDC PO PRN (04:40)
[2021-10-22] MEDS ORDERED: ACETAMINOPHEN TAB 650MG DOSE (2X325MG) PO PRN (04:40)
[2021-10-22] MEDS ORDERED: MOM 30ML SUSPENSION UDC PO PRN (04:40)
[2021-10-22] MEDS ORDERED: HOME MED LIST COMPLETE! XX SCH (04:50)
--- OUTSIDE RECORDS SUMMARY | 2021-10-22 04:54 | CCD ---
Author Author [facility] Organization [facility] Address Unknown Phone Unavailable Care Team Providers Care Technology Lab Teacher Name Role Phone Gee Patterson Unavailable Gee Patterson Unavailable STANTON, H KEITH ORBITREAD OPERATOR Unavailable Unavailable STANTON, H KEITH ORBITREAD OPERATOR Unavailable Unavailable STANTON, H KEITH ORBITREAD OPERATOR Unavailable Unavailable STANTON, H KEITH ORBITREAD OPERATOR Unavailable Unavailable STANTON, H KEITH ORBITREAD OPERATOR Unavailable Unavailable STANTON, H KEITH ORBITREAD OPERATOR Unavailable Unavailable STANTON, H KEITH ORBITREAD OPERATOR Unavailable Unavailable STANTON, H KEITH ORBITREAD OPERATOR Unavailable Unavailable STANTON, H KEITH ORBITREAD OPERATOR Unavailable Unavailable Re-disclosure Warning The records [...] is protected by Article 27-F of the [facility] Public Health law. If you continue you may have access to information: Regarding HIV / AIDS; Provided by facilities licensed or operated by the [facility] Office of Mental Health; or Provided by the [facility] Office for People With Developmental Disabilities. If such information is present, then the following [facility] mandated warning applies: This information has [...] law may result in a fine or custodial sentence or both. A general authorization for the release of medical or other information is NOT sufficient authorization for further disc losure. Encounters Encounter Providers Location Date Indications Data Source(s ) Unknown [address] [facility] [id number] 02/11/2021 12:00:00 AM EDT eCW1 ([facility]) Outpatient Attender: KEITH EID NP [facility] 11/26/2020 04:30:00 AM EST - 11/26/2020 04:30:00 AM EST [facility] ([facility]) Attender: KEITH EID NP 11/26/2020 12:00:00 AM EST [facility] ([facility]) Extended Individual Psychotherapy - 45 min Attender: Enrique camara [facility] 11/19/2020 03:00:00 AM EST - 11/19/2020 03:00:00 AM EST [facility] ([facility]) Attender: Gee Patterson 11/19/2020 12:00:00 AM EST [facility] ([facility]) Extended Individual Psychotherapy - 45 min Attender: Enrique camara [facility] 10/30/2020 02:00:00 AM EST - 10/30/2020 02:00:00 AM EST [facility] ([facility]) Attender: Gee Patterson 10/30/2020 12:00:00 AM EST [facility] ([facility]) Attender: Gee Patterson 09/28/2020 12:00:00 AM EDT [facility] ([facility]) Extended Individual Psychotherapy - 45 min Attender: Enrique Patterson [facility] Jeb 09/26/2020 04:00:00 AM EDT - 09/26/2020 04:00:00 AM EDT [facility] ([facility]) Outpatient Attender: KEITH EID NP [facility] Manolo underwood 09/15/2020 03:00:00 AM EDT - 09/15/2020 03:00:00 AM EDT [facility] ([facility]) Attender: KEITH EID NP 09/15/2020 12:00:00 AM EDT [facility] ([facility]) Functional Status Immunizations Vaccine Date Status Description Data Source(s) COVID-19 VACCINE Ofelia 04/23/2021 12:00:00 AM EDT completed NYSIIS Vaccine Series Complete: YESThis Data wa s Submitted to [facility] Via [facility]. Medications Medication Brand Name Start Date Product [...] TABLET BY MOUTH EVERY DAY AT BE [facility] NEEDED SOLD: 11/27/2020 [facility] Cital[facility] [...] AM EST 50 mg completed <td ID="Medica tionRxNorm_3">131222</td><td ID="MedicationMedication_3">trazodone</td><td ID="MedicationRoute_3"></td><td ID="MedicationRouteConcept_3"></td><td ID="MedicationStartDate_3">10/15/2020</td><td ID="MedicationStopDate_3"></td><td ID="MedicationDosageFrequency_3">at bedtime</td><td ID="MedicationDuration_3"></td><td ID="MedicationFormulaStrength_3">50 mg</td><td ID="MedicationDosageForm_3">tablet</td><td ID="MedicationDosageFormCode_3"></td><td ID="MedicationDosageDescription_3">as needed</td><td ID="MedicationMedicationId_3">[id number]</td><td ID="MedicationAccount_3">[id number]</td><td ID="MedicationNpid_3">[id number]</td><td ID="MedicationAuthorFirstName_3">Keith</td><td ID="MedicationAuthorLastName_3">Stanton</td><td ID="MedicationTaxonomyCode_3">[id number]</td><td ID="MedicationTaxonomyDesc_3">Nurse Practitioner</td><td ID="MedicationPhoneNumber_3">[phone]</td> [facility] ([facility]) 250 mg 10/15/2020 12:00:00 AM EST tablet,delayed [...] ONE TABLET BY MOUTH EVERY DAY AT [facility] NEEDED SOLD: 10/21/2020 [facility] 10 [...] AM EDT 100 mg comp leted <td ID="MedicationRxNorm_1">101720</td><td ID="MedicationMedication_1">Wellbutrin SR</td><td ID="MedicationRoute_1"></td><td ID="MedicationRouteConcept_1"></td> <td ID="MedicationStartDate_1">09/15/2020</td><td ID="MedicationStopDate_1"></td><td ID="MedicationDosageFrequency_1">every morning</td><td ID="MedicationDuration_1"></td><td ID="MedicationFormulaStrength_1">100 mg</td><td ID="MedicationDosageForm_1">tablet sustained-release 12 hr</td><td ID="MedicationDosageFormCode_1"></td><td ID="MedicationDosageDescription_1"></td><td ID="MedicationMedicationId_1">[id number]</td><td ID="MedicationAccount_1">[id number]</td><td ID="MedicationNpid_1">[id number]</td><td ID="MedicationAuthorFirstName_1">Keith</td><td ID="MedicationAuthorLastName_1">Stanton</td><td ID="MedicationTaxonomyCode_1">[id number]</td><td ID="MedicationTaxonomyDesc_1"> Nurse Practitioner</td><td ID="MedicationPhoneNumber_1">[phone]</td> [facility] ([facility]) Risperidone 1 MG Oral Tablet [Risperdal] Risperdal 09/15/2020 12 :00:00 AM EDT 1 mg by mouth completed <td ID="Me dicationRxNorm_7">937437</td><td ID="MedicationMedication_7">Risperdal</td><td ID="MedicationRoute_7">by mouth</td><td ID="MedicationRouteConcept_7">A35062</td><td ID="MedicationStartDate_7">09/15/2020</td><td ID="MedicationStopDate_7">12/13/2020</td><td ID="MedicationDosageFrequency_7">once a day</td><td ID="MedicationDuration_7">30</td><td ID="MedicationFormulaStrength_7">1 mg</td><td ID="MedicationDosageForm_7">tablet</td><td ID="MedicationDosageFormCode_7"></td><td ID="MedicationDosageDescription_7"></td><td ID="MedicationMedicationId_7">[id number]</td><td ID="MedicationAccount_7">[id number]</td><td ID="MedicationNpid_7">[id number]</td><td ID="MedicationAuthorFirstName_7">Keith</td><td ID="MedicationAuthorLastName_7">Stanton</td><td ID="MedicationTaxonomyCode_7">[id number]</td><td ID="MedicationTaxonomyDesc_7">Nurse Practitioner</td><td ID="MedicationPhoneNumber_7">[phone]</td> [facility] ([facility]) Citalopram 10 MG Oral Tablet [Celexa] Celexa 09/15/2020 12:00:00 AM EDT 10 mg by mouth completed <td ID="Medica tionRxNorm_3">340908</td><td ID="MedicationMedication_3">Celexa</td><td ID="MedicationRoute_3">by mouth</td><td ID="MedicationRouteConcept_3">P78997</td><td ID="MedicationStartDate_3">09/15/2020</td><td ID="MedicationStopDate_3">11/14/2020</td><td ID="MedicationDosageFrequency_3">once a day</td><td ID="MedicationDuration_3">30</td><td ID="MedicationFormulaStrength_3">10 mg</td><td ID="MedicationDosageForm_3">tablet</td><td ID="MedicationDosageFormCode_3"></td><td ID="MedicationDosageDescription_3"></td><td ID="MedicationMedicationId_3">[id number]</td><td ID="MedicationAccount_3">[id number]</td><td ID="MedicationNpid_3">[id number]</td><td ID="MedicationAuthorFirstName_3">Keith</td><td ID="MedicationAuthorLastName_3">Stanton</td><td ID="MedicationTaxonomyCode_3">[id number]</td><td ID="MedicationTaxonomyDesc_3">Nurse Practitioner</td><td ID="MedicationPhoneNumber_3">[phone]</td> [facility] ([facility]) Divalproex Sodium 500 MG Delayed Release Oral Tablet [Depako te] Depakote 09/15/2020 12:00:00 AM EDT 500 mg by mouth completed <td ID="MedicationRxNorm_4">1333040</td><td ID="MedicationMedication_4">Depakote</td><td ID="MedicationRoute_4">by mouth</td><td ID="MedicationRouteConcept_4">A79268</td><td ID="MedicationStartDate_4">09/15/2020</td><td ID="MedicationStopDate_4">11/14/2020</td><td ID="MedicationDosageFrequency_4">every morning</td><td ID="MedicationDuration_4">30</td><td ID="MedicationFormulaStrength_4">500 mg</td><td ID="MedicationDosageForm_4">tablet,delayed release (DR/EC)</td><td ID="MedicationDosageFormCode_4"></td><td ID="MedicationDosageDescription_4"></td><td ID="MedicationMedicationId_4">[id number]</td><td ID="MedicationAccount_4">[id number]</td><td ID="MedicationNpid_4">[id number]</td><td ID="MedicationAuthorFirstName_4">Keith</td><td ID="MedicationAuthorLastName_4">Stanton</td><td ID="MedicationTaxonomyCode_4">[id number]</td><td ID="MedicationTaxonomyDesc_4"> Nurse Practitioner</td><td ID="MedicationPhoneNumber_4">[phone]</td> [facility] ([facility]) Risperidone 1 MG Oral Tablet [Risperdal] Risperdal 09/15/2020 12 :00:00 AM EDT 1 mg by mouth completed <td ID="Me dicationRxNorm_6">488526</td><td ID="MedicationMedication_6">Risperdal</td><td ID="MedicationRoute_6">by mouth</td><td ID="MedicationRouteConcept_6">O06944</td><td ID="MedicationStartDate_6">09/15/2020</td><td ID="MedicationStopDate_6">11/14/2020</td><td ID="MedicationDosageFrequency_6">once a day</td><td ID="MedicationDuration_6">30</td><td ID="MedicationFormulaStrength_6">1 mg</td><td ID="MedicationDosageForm_6">tablet</td><td ID="MedicationDosageFormCode_6"></td><td ID="MedicationDosageDescription_6"></td><td ID="MedicationMedicationId_6">[id number]</td><td ID="MedicationAccount_6">[id number]</td><td ID="MedicationNpid_6">[id number]</td><td ID="MedicationAuthorFirstName_6">Keith</td><td ID="MedicationAuthorLastName_6">Stanton</td><td ID="MedicationTaxonomyCode_6">[id number]</td><td ID="MedicationTaxonomyDesc_6">Nurse Practitioner</td><td ID="MedicationPhoneNumber_6">[phone]</td> [facility] ([facility]) Citalopram 20 MG Oral Tablet [Celexa] Celexa 09/15/2020 12:00:00 AM EDT 20 mg completed <td ID="Medica tionRxNorm_6">154096</td><td ID="MedicationMedication_6">Celexa</td><td ID="MedicationRoute_6"></td><td ID="MedicationRouteConcept_6"></td><td ID="MedicationStartDate_6">09/15/2020</td><td ID="MedicationStopDate_6">12/13/2020</td><td ID="MedicationDosageFrequency_6"></td><td ID="MedicationDuration_6">30</td><td ID="MedicationFormulaStrength_6">20 mg</td><td ID="MedicationDosageForm_6">tablet</td><td ID="MedicationDosageFormCode_6"></td><td ID="MedicationDosageDescription_6"></td><td ID="MedicationMedicationId_6">11559</td><td ID="MedicationAccount_6">[id number]</td><td ID="MedicationNpid_6">[id number]</td><td ID="MedicationAuthorFirstName_6">Keith</td><td ID="MedicationAuthorLastName_6">Stanton</td><td ID="MedicationTaxonomyCode_6">[id number]</td><td ID="MedicationTaxonomyDesc_6">Nurse Practitioner</td><td ID="MedicationPhoneNumber_6">[phone]</td> [facility] ([facility]) Divalproex Sodium 250 MG Delayed Release Oral Tablet [Depako te] Depakote 09/15/2020 12:00:00 AM EDT 250 mg by mouth completed <td ID="MedicationRxNorm_2">9126479</td><td ID="MedicationMedication_2">Depakote</td><td ID="MedicationRoute_2">by mouth</td><td ID="MedicationRouteConcept_2">Z96699</td><td ID="MedicationStartDate_2">09/15/2020</td><td ID="MedicationStopDate_2"></td><td ID="MedicationDosageFrequency_2">at bedtime</td><td ID="MedicationDuration_2"></td><td ID="MedicationFormulaStrength_2">250 mg</td><td ID="MedicationDosageForm_2">tablet,delayed release (DR/EC)</td><td ID="MedicationDosageFormCode_2"></td><td ID="MedicationDosageDescription_2"></td><td ID="MedicationMedicationId_2">84123</td><td ID="MedicationAccount_2">[id number]</td><td ID="MedicationNpid_2">[id number]</td><td ID="MedicationAuthorFirstName_2">Keith</td><td ID="MedicationAuthorLastName_2">Stanton</td><td ID="MedicationTaxonomyCode_2">[id number]</td><td ID="MedicationTaxonomyDesc_2"> Nurse Practitioner</td><td ID="MedicationPhoneNumber_2">[phone]</td> [facility] ([facility]) Citalopram 10 MG Oral Tablet [Celexa] Celexa 09/15/2020 12:00:00 AM EDT 10 mg by mouth completed <td ID="Medica tionRxNorm_4">815142</td><td ID="MedicationMedication_4">Celexa</td><td ID="MedicationRoute_4">by mouth</td><td ID="MedicationRouteConcept_4">B80018</td><td ID="MedicationStartDate_4">09/15/2020</td><td ID="MedicationStopDate_4">12/13/2020</td><td ID="MedicationDosageFrequency_4">once a day</td><td ID="MedicationDuration_4">30</td><td ID="MedicationFormulaStrength_4">10 mg</td><td ID="MedicationDosageForm_4">tablet</td><td ID="MedicationDosageFormCode_4"></td><td ID="MedicationDosageDescription_4"></td><td ID="MedicationMedicationId_4">11417</td><td ID="MedicationAccount_4">[id number]</td><td ID="MedicationNpid_4">[id number]</td><td ID="MedicationAuthorFirstName_4">Keith</td><td ID="MedicationAuthorLastName_4">Stanton</td><td ID="MedicationTaxonomyCode_4">[id number]</td><td ID="MedicationTaxonomyDesc_4">Nurse Practitioner</td><td ID="MedicationPhoneNumber_4">[phone]</td> [facility] ([facility]) Divalproex Sodium 500 MG Delayed Release Oral Tablet [Depako te] Depakote 09/15/2020 12:00:00 AM EDT 500 mg by mouth completed <td ID="MedicationRxNorm_5">6300163</td><td ID="MedicationMedication_5">Depakote</td><td ID="MedicationRoute_5">by mouth</td><td ID="MedicationRouteConcept_5">J91062</td><td ID="MedicationStartDate_5">09/15/2020</td><td ID="MedicationStopDate_5">12/13/2020</td><td ID="MedicationDosageFrequency_5">every morning</td><td ID="MedicationDuration_5">30</td><td ID="MedicationFormulaStrength_5">500 mg</td><td ID="MedicationDosageForm_5">tablet,delayed release (DR/EC)</td><td ID="MedicationDosageFormCode_5"></td><td ID="MedicationDosageDescription_5"></td><td ID="MedicationMedicationId_5">20900</td><td ID="MedicationAccount_5">[id number]</td><td ID="MedicationNpid_5">[id number]</td><td ID="MedicationAuthorFirstName_5">Keith</td><td ID="MedicationAuthorLastName_5">Stanton</td><td ID="MedicationTaxonomyCode_5">[id number]</td><td ID="MedicationTaxonomyDesc_5"> Nurse Practitioner</td><td ID="MedicationPhoneNumber_5">[phone]</td> [facility] ([facility]) Citalopram 20 MG Oral Tablet [Celexa] Celexa 09/15/2020 12:00:00 AM EDT 20 mg completed <td ID="Medica tionRxNorm_5">393711</td><td ID="MedicationMedication_5">Celexa</td><td ID="MedicationRoute_5"></td><td ID="MedicationRouteConcept_5"></td><td ID="MedicationStartDate_5">09/15/2020</td><td ID="MedicationStopDate_5">11/14/2020</td><td ID="MedicationDosageFrequency_5"></td><td ID="MedicationDuration_5">30</td><td ID="MedicationFormulaStrength_5">20 mg</td><td ID="MedicationDosageForm_5">tablet</td><td ID="MedicationDosageFormCode_5"></td><td ID="MedicationDosageDescription_5"></td><td ID="MedicationMedicationId_5">82911</td><td ID="MedicationAccount_5">[id number]</td><td ID="MedicationNpid_5">[id number]</td><td ID="MedicationAuthorFirstName_5">Keith</td><td ID="MedicationAuthorLastName_5">Stanton</td><td ID="MedicationTaxonomyCode_5">[id number]</td><td ID="MedicationTaxonomyDesc_5">Nurse Practitioner</td><td ID="MedicationPhoneNumber_5">[phone]</td> [facility] ([facility]) 10 mg 07/25/2020 12:00:00 AM EDT tablet [...] type / Coverage type Policy ID Covered constitution party ID Covered constitution party's relationship to roach Policy Roach Plan Information [facility] [id number] SP [id number] [facility] [id number] SP [id number] ANSI-Medicaid [id number] ANSI-Medicaid [id number] ANSI-Commercial [id number] ANSI-Not a Secondary Insurance [id number] ANSI-Commercial [id number] ANSI-Medicaid [id number] ANSI-Not a Secondary Insurance [id number] ANSI-Medicaid [id number] ANSI-Medicaid [id number] ANSI-Not a Secondary Insurance [id number] ANSI-Medicaid [id number] ANSI-Commercial [id number] ANSI-Not a Secondary Insurance [id number] ANSI-Commercial [id number] ANSI-Medicaid [id number] ANSI-Medicaid [id number] ANSI-Commercial [id number] ANSI-Medicaid [id number] ANSI-Not a Secondary Insurance [id number] ANSI-Medicaid [id number] ANSI-Not a Secondary Insurance [id number] ANSI-Commercial [id number] ANSI-Medicaid [id number] ANSI-Not a Secondary Insurance [id number] ANSI-Commercial [id number] ANSI-Not a Secondary Insurance [id number] ANSI-Medicaid [id number] ANSI-Commercial [id number] MEENA [id number] SP [id number] ANSI-Medicaid [id number] ANSI-Commercial [id number] ANSI-Not a Secondary Insurance [id number] SELF PAY ONLY - SP1 UNAVAILABLE SP UNAVAILABLE MEENA [id number] SP [id number] MEDICAID [id number] SP [id number] Problems, Conditions, and Diagnoses Code Display Name Description Problem Type Effective Dates Data Source(s) F29 Unspecified psychosis not du e to a substance or known physiological condition 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 11/26/2020 12:00:00 AM EST [facility] ([facility]) F33.1 Major depressive disorder, recurrent, mo derate Major Depressive Disorder, Recurrent episode, Moderate Condition 11/26/2020 12:00:00 AM EST [facility] ([facility]) Surgeries/Procedures Procedure Description Date Indications Data Source(s) MHC Telemed E/M Lvl 3--Est pt 11/26/2020 12:00:00 AM EST - 11/26/2020 12:00:00 AM EST [facility] ([facility]) MHC Telemed E/M Lvl 3--Est pt 11/26/2020 12:00:[address] [facility] ([facility]) Extended Individual Psychotherapy - 45 min 11/19/2020 12:00:00 AM EST - 11/19/2020 12:00:00 AM EST [facility] ([facility]) Extended Individual Psychotherapy - 45 min 0 12:00:00 AM EST [facility] ([facility]) Extended Individual Psychotherapy - 45 min 10/30/2020 12:00:00 AM EST - 10/30/2020 12:00:00 AM EST [facility] ([facility]) Extended Individual Psychotherapy - 45 min 0 12:00:00 AM EST [facility] ([facility]) Extended Individual Psychotherapy - 45 min 09/28/2020 12:00:00 AM EDT - 09/28/2020 12:00:00 AM EDT [facility] ([facility]) Extended Individual Psychotherapy - 45 min 0 12:00:00 AM EDT [facility] ([facility]) OFFICE OUTPATIENT VISIT 15 MINUTES 09/15 12:00:00 AM EDT - 09/15/2020 12:00:00 AM EDT [facility] ([facility]) OFFICE OUTPATIENT VISIT 15 MINUTES 09/15/2020 12:00:00 AM EDT [facility] ([facility]) Results No Information Social History Code Duration Value Status Description Data Source(s ) Smoking 11/26/2020 12:00:00 AM EST Unknown if ever smoked comp leted Unknown if ever smoked [facility] ([facility]) Smoking 11/19/2020 12:00:00 AM EST Unknown if ever smoked comp leted Unknown if ever smoked [facility] ([facility]) Smoking 10/30/2020 12:00:00 AM EST Unknown if ever smoked comp leted Unknown if ever smoked [facility] ([facility]) Smoking 10/21/2020 12:00:00 AM EST Current Smoker completed Curre nt Smoker eCW1 ([facility]) Smoking 09/28/2020 12:00:00 AM EDT Unknown if ever smoked comp leted Unknown if ever smoked [facility] ([facility]) Smoking 09/15/2020 12:00:00 AM EDT Unknown if ever smoked comp leted Unknown if ever smoked [facility] ([facility]) Vital Signs ID Date Data Source UNK Name Value Range Interpretation Code Description Data Source(s) Body height 0.00 in Normal (applies to non-numeric resu lts) 0.00 in [facility] ([facility]) Body weight Measured 0.00 lbs Normal (applies to n on-numeric results) 0.00 lbs [facility] ([facility]) Body mass index (BMI) [Ratio] 0.00 kg/m2 No rmal (applies to non-numeric results) 0.00 [facility]m2 [facility] Systolic blood pressure 0 mm[Hg] Normal (applies t o non-numeric results) 0 mm[Hg] [facility] ([facility]) Diastolic blood pressure 0 mm[Hg] Normal (applies to non-numeric results) 0 mm[Hg] [facility] ([facility]) Body height 0.00 in Normal (applies to non-numeric resu lts) 0.00 in [facility] ([facility]) Body weight Measured 0.00 lbs Normal (applies to n on-numeric results) 0.00 lbs [facility] ([facility]) Body mass index (BMI) [Ratio] 0.00 kg/m2 No rmal (applies to non-numeric results) 0.00 kg/m2 [facility] ([facility]) Systolic blood pressure 0 mm[Hg] Normal (applies t o non-numeric results) 0 mm[Hg] [facility] ([facility]) Diastolic blood pressure 0 mm[Hg] Normal (applies to non-numeric results) 0 mm[Hg] [facility] ([facility])
[2021-10-22] MEDS: NICOTINE 21MG/24HR 1 EA TRANSDERMAL TD SCH (08:52)
[2021-10-22] MEDS: SERTRALINE HCL 50 MG TAB PO SCH (08:52)
[2021-10-22] MEDS ORDERED: SERTRALINE HCL 50 MG TAB PO ONE (09:00)
[2021-10-22 10:17] VITALS: BP 145/110
--- NOTE | 2021-10-22 14:15 | MHHPEPDOC ---
General Date Of Admission: Oct 22, 2021 Legal Status: 9.39 Chief Complaint "I thought somebody was going to kill me because of things I done in the past. History of Present Illness HISTORY OF THE PRESENT ILLNESS: Patient is a 36 -year-old , male, who presented to the ED with suicidal ideation to jump off of a bridge secondary to anxiety and paranoia related to concerns over past sexual offenses which have made him a registered sex offender. He notes that he stopped taking his medicat ions a few weeks ago as he felt they were making him a zombie and has had decline in his mental health since that period time. He endorses that he would like to restart medications as they were helpful previously, but would like to talk about other alternatives. He is also interested in looking for a different clinic as he felt that the community clinic at [facility] where he is currently going was not in a very helpful place. Currently endorses having some suicidal ideations without current plan, also endorses paranoia and auditory hallucinations of people accusing him of actions. States that when he asked people about this they will deny that they have said that and he has difficulty understanding which things are reality in which things or not. Psychiatric Review of Systems Depression (2 or more weeks): depressed mood, anhedonia, insomnia/hypersomnia, feelings of worthlesness, decreased energy, suicidal thoughts Constance (4 or more days of): denies Psychosis: auditory hallucination, delusions, paranoia PTSD: history of trauma Anxiety: gen/non-specific anxiety Anxiety/ 6 months or more of: restlessness, keyed up, difficulty concentrating, irritability, muscle tension, sleep disturbance Past Psychiatric History Previous Psychiatric Diagnosis: Major depressive disorder with psychotic feature s. Previous Psychiatric Admissions: 1 in 2016 at [facility]. Suicide Attempts: Denies a history of suicide attempts. Psychiatric Follow-up: No current psychiatric follow-up, was previously being seen at community clinic at [facility]. Psychiatric medications: No current medications, previously was taking Celexa, Depakote, Wellbutrin, trazodone. Past Medical History Medical Problems No noted medical history Head Injury: No Seizures: No Hospitalizations: No Surgeries: No Family Medical/Psychiatric HX Medical Problems Denies history of medical concerns other than hypertension Psychiatric Disorders: No Addiction: No Suicide Attemps/Completions: No Addiction History denies Social History Childhood: Reports he had an okay childhood growing up, denies any history of trauma, feels that his mother is a good support and has been throughout his life. Abuse/Trauma: Denies a history of trauma or abuse. Current Living Situation: Currently living alone, has contact with his and his 11-year-old daughter, having some difficulties due to his status as a regimen psych offender. Education: High school. 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 Social Support: Mother is his main social support, also has some contact with his . Legal: Denies history of legal charges. Marital: Currently but not living together due to his status as a sex offender. Mental Status Examination General Appearance: well groomed, appears stated age, hospital scubs/clothing Build: overweight, tall Demeanor: withdrawn Eye Contact: avoidant Activity: average Behavior: cooperative, anhedonia, withdrawn Speech: reg/rate,rhythm,volume Mood: depressed Mood Scared and anxious Affect: constricted, congruent Thought Process: logical/linear, depressed Thought Content (Delusions): persecutory, paranoia, delusions, other (Reports S I without current plan) Thought Content (Other): guilty, appears paranoid Thought Content (Aggressive): none reported Perception (Hallucinations): none reported Perception (Other): none reported Cognition (Impairment of): none reported Cognition(Intelligence Est.): average Oriented: Alert, Oriented times three Insight: fair Judgment: Poor Psychosis: Psychotic Perceptions Diagnoses Major depressive disorder, recurrent, severe, with psychotic features A-FIB/CHADSVASC A-FIB History Current/History of A-Fib/PAF?: No Assessment 36-year-old male with a history of major depression disorder with psychotic features who presents for exacerbation of the same secondary to stopping his medications several weeks ago. He has had a relapse in symptoms and has regained his sense of paranoia that people are trying to hurt him due to his status as a sex offender. He acknowledges that he has no physical proof of this but continues to have these thoughts. He states that at times he will hear people tell him negative things about himself or accused him of events and when he confronts them they will then deny that they have set this, this is consistent with the previously reported delusions. He does recognize that he feels better with the medications and endorses that he would like to restart medications, however he felt that his previous regimen was over sedating which is why he stopped them. We discussed the idea of continuing with the Zoloft which is started once he was here and will titrate this upwards as tolerated over the course of his stay. Also reviewed the idea of utilizing possibly long- acting injectable antipsychotics for management, we will start him on Invega and titrate as tolerated Problem List Problems: (1) Paranoid delusion (2) Suicidal ideation Status: Acute Initial Treatment Plan 1. Patient was admitted on a 9.39 status. 2. Complete history was obtained. 3. With patients permission, family will be contacted and database will be expanded. 4. Patients medication regimen will be reviewed and changed accordingly. 5. Patient will be provided with protected environment. 6. Patient will be treated with individual, group, and milieu therapies. 7. Patient will receive supportive psych-education. 8. Discharge planning will commence immediately. 9. Outpatient follow-up treatment will be strongly recommended. 10. The initial treatment plan will focus initially on: * Depression. * Risk for suicide Psychosis. ESTIMATED LENGTH OF STAY: 7-10 DAYS. TIME SPENT COUNSELING AND COORDINATING INITIAL CARE: 45 minutes. Tobacco Cessation Screen If Patient is a Smoker Denies history of smoking Ordered/Pending Vital Signs Vital Signs Date Time Temp Pulse Resp B/P (MAP) Pulse Ox O2 Delivery O2 Flow Rate FiO2 10/22/21 10:17 98.2 84 16 145/110 (122) 97 Room Air Laboratory Data 24H Labs Laboratory Tests 2 10/21/21 19:18: Nucleated Red Blood Cells % (auto) 0.0, Anion Gap 7L, Glomerular Filtration Rate > 60.0, Calcium Level 9.3, Total Bilirubin 1.4H, Direct Bilirubin 0.4H, Aspartate Amino Transf (AST/SGOT) 17, Alanine Aminotransferase (ALT/SGPT) 54, Alkaline Phosphatase 51, Total Protein 7.5, Albumin 4.0, Albumin/Globulin Ratio 1.1, Thyroid Stimulating Hormone (TSH) 1.600, Salicylates Level 2.5L, Acetaminophen Level < 2.0L, Ethyl Alcohol Level < 0.003 10/21/21 22:37: Urine Opiates Screen NEGATIVE, Urine Methadone Screen NEGATIVE, Urine Barbiturates Screen NEGATIVE, Urine Phencyclidine Screen NEGATIVE, Urine Amphetamines Screen NEGATIVE, Urine Benzodiazepines Screen NEGATIVE, Urine Cocai ne Metabolite Screen NEGATIVE, Urine Cannabinoids Screen POSITIVEH 10/22/21 02:55: Coronavirus (COVID-19)(PCR) NEGATIVE, Influenza Type A (RT-PCR) NEGATIVE, Influenza Type B (RT-PCR) NEGATIVE, Respiratory Syncytial Virus (PCR) NEGATIVE CBC/BMP Laboratory Tests 10/21/21 19:18 Medications No Active Prescriptions or Reported Meds Allergies Coded Allergies: No Known Allergies (Unverified , 10/13/21) MODESTA SANCHEZ MD Oct 22, 2021 14:02
[2021-10-22 15:19] LABS: HEMOGLOBIN A1c 5.3 %
[2021-10-22 15:30] LABS: CHOLESTEROL RISK RATIO 3.95 (<5)
[2021-10-22 18:24] VITALS: BP 177/94
[2021-10-23] MEDS ORDERED: INFLUENZA QUADRIVALENT PF VACCINE 0.5ML SYRINGE IM ONE (09:00)
[2021-10-23] MEDS: NICOTINE 21MG/24HR 1 EA TRANSDERMAL TD SCH (09:00)
[2021-10-23] MEDS: SERTRALINE HCL 50 MG TAB PO SCH (09:00)
[2021-10-23] MEDS: PALIPERIDONE 6 MG ER TAB (INVEGA) PO SCH (09:00)
--- NOTE | 2021-10-23 10:52 | MHIPNPDOC ---
[facility] Progress Note Progress Note DATE OF SERVICE: 10/23/21 HISTORY: see H and P Interval: Reports having rash due to underwear rubbing, reports increased diaphoresis, also shows me some mild swelling in feet bilaterally, states has been standing for long periods of time and swelling is non pitting. Has been declining medicines today, states he is skeptical "It's been going on", states he has concerns people are out to get him. "I feel I'm gonna get harmed", but denies auditory hallucinations. Roommate had reported the patient thought he was going to hurt him. VITAL SIGNS: See below. NEW TEST RESULTS: see below, hba1c within normal limits, lipid panel wnl CURRENT MEDICATIONS: See below. MENTAL STATUS EXAMINATION: Patient is a 36-year old male, who is in no acute distress Speech: Is spontaneous, decreased amount, Language skills are poor Thought processes including: Thought content: reports has brief periods of suicidal ideation because he thinks people are out to get him Abstract reasoning, and computation: poor Description of associations: concrete Description of abnormal or psychotic thoughts: paranoia Judgment: poor Insight: poor Orientation: x4 Recent and remote memory: intact Attention span and concentration: decreased Language: azeri Fund of knowledge: below average based on interview Mood: "lucita confused" Affect: blunted, paranoid DIAGNOSES: Major depressive disorder, recurrent, severe, with psychotic features ASSESSMENT: Patient is depressed and paranoid, refuses medication despite education, vague SI, made nursing aware of medical complaints, to monitor if worsening MANAGEMENT PLAN: continue to offer medications, patient refuses TIME SPENT: 15 minutes. Vital Signs Vital Signs Date Time Temp Pulse Resp B/P (MAP) Pulse Ox O2 Delivery O2 Flow Rate FiO2 10/23/21 10:15 Room Air 10/22/21 18:24 98.3 97 18 177/94 (121) 95 Laboratory Data 24H Labs Laboratory Tests 2 10/22/21 14:39: Estimated Mean Plasma Glucose 105, Hemoglobin A1c 5.3, Triglycerides Level 133, Total Cholesterol 158, LDL Cholesterol 91, Non-HDL Cholesterol (LDL + VLDL) 118, Total HDL Cholesterol 40, Cholesterol/HDL Ratio 3.950 Current Medications Current Medications Medications (Trade) Dose Ordered Sig/Opal Route PRN Reason Start Time Stop Time Status Last Admin Dose Admin Acetaminophen (Tylenol Tab) 650 mg Q6HP PRN PO HEADACHE or MILD DISCOMFORT 10/22/21 04:40 Al Hydrox/Mg Hydrox/Simethicone (Mylanta) 30 ml Q4HP PRN PO HEARTBURN/INDIGESTION 10/22/21 04:40 Home Med (Home Med List Complete!) ASDIRECTED XX 10/22/21 04:50 10/22/21 04:53 DC Magnesium Hydroxide (Milk Of Magnesia) 30 ml DAILYPRN PRN PO CONSTIPATION 10/22/21 04:40 Nicotine (Nicoderm Cq 21mg) 1 patch DAILY TD 10/22/21 09:00 Paliperidone (Invega) 6 mg DAILY PO 10/23/21 09:00 Sertraline HCl (Zoloft) 50 mg DAILY PO 10/22/21 09:00 10/22/21 08:52 Trazodone HCl (Desyrel) 50 mg QHSP PRN PO INSOMNIA 10/22/21 04:40 Allergies Coded Allergies: No Known Allergies (Unverified , 10/13/21) VÍCTOR CESAR MD Oct 23, 2021 10:52
[2021-10-23 16:05] VITALS: BP 137/92
--- NOTE | 2021-10-23 18:01 | HPEPDOC ---
[facility] Medical History & Physical Date of Admission Oct 22, 2021 Date of Service: Oct 23, 2021 History and Physical CHIEF COMPLAINT: htn HISTORY OF PRESENT ILLNESS: 36-year-old male with a past medical history of hypertension, major depressive disorder presented to the ER with suicidal ideations stating he was to jump off a bridge. He reports significant anxiety and paranoia directed with past sexual of sexual offenses which made him reduce her sex offender. Patient has stopped taking his psychiatric medication which made him feel obtunded. Patient is willing to seek help. Patient denies any shortness of breath chest pain palpitations nausea vomiting diarrhea. Blood pressure went to be elevated throughout the admission highest at 177/94. He denies taking any medication at home for his blood pressure. PAST MEDICAL HISTORY: Hypertension Major depressive disorder PAST SURGICAL HISTORY: Denies prior surgical history SOCIAL HISTORY: Patient denies smoking Patient denies etoh use Patient denies illicit drug use ALLERGIES: Please see below. REVIEW OF SYSTEMS: 10 point ROS conducted, relevant findings are noted in the HPI HOME MEDICATIONS: Please see below. PHYSICAL EXAMINATION: VITAL SIGNS: please see below General: NAD, comfortable HEENT: PERRLA, EOMI, sclerae clear Neck: supple, normal ROM, no JVD Respiratory: lungs CTAB, no wheeze, no rales, no crackles CVS: RRR, normal S1, S2, no murmurs Abdo: soft, no masses, no hepatosplenomegaly, BS+, no rebound tenderness Extremities: no edema, pulses 2+ MSK: no joint deformities, normal ROM Neuro: no focal neuro deficits, moving all 4 extremities, CN2-12 intact. Strength 5/5 in all 4 extremities. No nystagmus. Psych: calm, cooperative, AAO x 3 LABORATORY DATA: See below. MICROBIOLOGY: Please see below. ASSESSMENT: 36-year-old male with a past medical history of hypertension, major depressive disorder presented to the ER with suicidal ideations stating he was to jump off a bridge. He reports significant anxiety and paranoia directed with past sexual of sexual offenses which made him reduce her sex offender. Patient has stopped taking his psychiatric medication which made him feel obtunded. Patient is willing to seek help. Patient denies any shortness of breath chest pain palpitations nausea vomiting diarrhea. Blood pressure went to be elevated throughout the admission highest at 177/94. He denies taking any medication at home for his blood pressure. . PLAN: Suicidal ideation, anxiety depression: Per psychiatry Hypertension: Start HCTZ 12.5. blood pressure some elevated during hospital admission as high as systolic 170 close PCP follow LE edema: check BNP. Low salt diet.Weight loss. Leukocytosis: WBC 12.3. Denies dysuria cough diarrhea fevers chills. We will repeat CBC in the morning check his urine and x-ray. Thank you for involving the care of this patient. Vital Signs Vital Signs Date Time Temp Pulse Resp B/P (MAP) Pulse Ox O2 Delivery O2 Flow Rate FiO2 10/23/21 16:05 98.4 98 18 137/92 (107) 100 Room Air Home Medications No Active Prescriptions or Reported Meds Allergies Coded Allergies: No Known Allergies (Unverified , 10/13/21) MARIA TERESA ENGEL MD Oct 23, 2021 18:01
[2021-10-23] MEDS: hydroCHLOROthiazide 12.5 MG CAPSULE PO SCH (19:04)
[2021-10-24 06:35] VITALS: BP 145/86
[2021-10-24 07:17] LABS: BASO % 0.3 % (0.0-1.0); EOS # 0.1 10^3/uL (0.0-0.5); EOS % 1.1 % (0.0-3.0); HEMATOCRIT 50.8 % (42.0-52.0); HEMOGLOBIN 17.3 g/dl (13.5-17.5); LYMPH # 1.8 10^3/uL (1.5-5.0); LYMPH % 19.4 % (24.0-44.0); MEAN CORPUSCULAR HEMOGLOBIN 29.1 pg (27.0-33.0); MEAN CORPUSCULAR HGB CONC 34.1 g/dl (32.0-36.5); MEAN CORPUSCULAR VOLUME 85.4 fl (80.0-96.0); NEUTROPHILS # 6.3 10^3/uL (1.5-8.5); NEUTROPHILS % 67.9 % (36.0-66.0); PLATELET COUNT, AUTOMATED 211 10^3/uL (150-450); RED BLOOD COUNT 5.95 10^6/uL (4.30-6.10); WHITE BLOOD COUNT 9.2 10^3/uL (4.0-10.0)
[2021-10-24 07:45] LABS: BLOOD UREA NITROGEN 13 MG/DL (7-18); CALCIUM LEVEL 9.1 MG/DL (8.5-10.1); CARBON DIOXIDE LEVEL 29 MEQ/L (21-32); CHLORIDE LEVEL 102 MEQ/L (98-107); CREATININE FOR GFR 1.17 MG/DL (0.70-1.30); GLOMERULAR FILTRATION RATE > 60.0 (>60); GLUCOSE, FASTING 105 MG/DL (70-100); NT-PRO BNP 26 PG/ML (<125); POTASSIUM SERUM 4.3 MEQ/L (3.5-5.1); SODIUM LEVEL 139 MEQ/L (136-145)
[2021-10-24] MEDS: SERTRALINE HCL 50 MG TAB PO SCH ×2 (08:00→09:10)
[2021-10-24] MEDS: PALIPERIDONE 6 MG ER TAB (INVEGA) PO SCH ×2 (08:00→09:10)
[2021-10-24] MEDS: NICOTINE 21MG/24HR 1 EA TRANSDERMAL TD SCH (08:00)
[2021-10-24] MEDS: hydroCHLOROthiazide 12.5 MG CAPSULE PO SCH (08:06)
--- NOTE | 2021-10-24 09:10 | MHIPNPDOC ---
[facility] Progress Note Progress Note DATE OF SERVICE: 10/24/21 HISTORY: see H and P Interval: States took "the pill for you, I hope it's strong enough, I want to get it over with if I'm here", referring to hctz, continues to refuse the paliperidone and sertraline. States "I know I wasn't walking out of here alive", when asked to elaborate states "you know what I mean". Was encouraged to take medications, made aware will likely need TOO if continues to refuse. Reports other people being in our interview whom are not present, when asked if they say anything, states "they don't have too". Reports hearing voices, but does not elaborate on questioning and has arms crossed. Sleep is not good, appetite is "eh not there". VITAL SIGNS: See below. NEW TEST RESULTS: see below, hba1c within normal limits, lipid panel wnl CURRENT MEDICATIONS: See below. MENTAL STATUS EXAMINATION: Patient is a 36-year old male, who is in no acute distress Speech: Is spontaneous, decreased amount, Language skills are poor Thought processes including: Thought content: continues to report has brief periods of suicidal ideation because he thinks people are out to get him Abstract reasoning, and computation: poor Description of associations: concrete Description of abnormal or psychotic thoughts: paranoia Judgment: poor Insight: poor Orientation: x4 Recent and remote memory: intact Attention span and concentration: decreased Language: azeri Fund of knowledge: below average based on interview Mood: "fine" Affect: blunted, paranoid, guarded DIAGNOSES: Unspecified psychotic disorder Major depressive disorder, recurrent, severe, with psychotic features ASSESSMENT: Patient continues to be paranoid, refuses medication despite education but states will take a dose today, order place, vague SI, made nursing aware of medical complaints, to monitor if worsening MANAGEMENT PLAN: Start paliperidone 3 mg qam, continue to offer medications, patient refuses but states will take a dose today reported. TIME SPENT: 20 minutes. Vital Signs Vital Signs Date Time Temp Pulse Resp B/P (MAP) Pulse Ox O2 Delivery O2 Flow Rate FiO2 10/24/21 06:35 98.8 84 20 145/86 (105) 95 Room Air Laboratory Data 24H Labs Laboratory Tests 2 10/24/21 06:43: Immature Granulocyte % (Auto) 0.3, Neutrophils (%) (Auto) 67.9H, Lymphocytes (%) (Auto) 19.4L, Monocytes (%) (Auto) 11.0H, Eosinophils (%) (Auto) 1.1, Basophils (%) (Auto) 0.3, Neutrophils # (Auto) 6.3, Lymphocytes # (Auto) 1.8, Monocytes # (Auto) 1.0H, Eosinophils # (Auto) 0.1, Basophils # (Auto) 0.0, Nucleated Red Blood Cells % (auto) 0.0, Anion Gap 8, Glomerular Filtration Rate > 60.0, Calcium Level 9.1, NP-Blk-V-Type Natriuretic Peptide 26 CBC/BMP Laboratory Tests 10/24/21 06:43 Current Medications Current Medications Medications (Trade) Dose Ordered Sig/Opal Route PRN Reason Start Time Stop Time Status Last Admin Dose Admin Acetaminophen (Tylenol Tab) 650 mg Q6HP PRN PO HEADACHE or MILD DISCOMFORT 10/22/21 04:40 Al Hydrox/Mg Hydrox/Simethicone (Mylanta) 30 ml Q4HP PRN PO HEARTBURN/INDIGESTION 10/22/21 04:40 Home Med (Home Med List Complete!) ASDIRECTED XX 10/22/21 04:50 10/22/21 04:53 DC Hydrochlorothiazide (Hydrodiuril) 12.5 mg DAILY PO 10/23/21 09:00 10/24/21 08:06 Magnesium Hydroxide (Milk Of Magnesia) 30 ml DAILYPRN PRN PO CONSTIPATION 10/22/21 04:40 Nicotine (Nicoderm Cq 21mg) 1 patch DAILY TD 10/22/21 09:00 Paliperidone (Invega) 6 mg DAILY PO 10/23/21 09:00 Sertraline HCl (Zoloft) 50 mg DAILY PO 10/22/21 09:00 10/22/21 08:52 Trazodone HCl (Desyrel) 50 mg QHSP PRN PO INSOMNIA 10/22/21 04:40 Allergies Coded Allergies: No Known Allergies (Unverified , 10/13/21) VÍCTOR CESAR MD Oct 24, 2021 09:10
[2021-10-24 16:10] VITALS: BP 139/97
[2021-10-25 06:30] VITALS: BP 158/98
[2021-10-25] MEDS: PALIPERIDONE 3 MG ER TAB (INVEGA) PO SCH (09:00)
[2021-10-25] MEDS: hydroCHLOROthiazide 12.5 MG CAPSULE PO SCH (09:00)
[2021-10-25] MEDS: SERTRALINE HCL 50 MG TAB PO SCH (09:00)
[2021-10-25] MEDS: NICOTINE 21MG/24HR 1 EA TRANSDERMAL TD SCH (09:00)
[2021-10-25] MEDS: PALIPERIDONE 6 MG ER TAB (INVEGA) PO SCH (09:00)
--- NOTE | 2021-10-25 11:07 | MHIPNPDOC ---
[facility] Progress Note Progress Note DATE OF SERVICE: 10/25/21 HISTORY: see H and P Interval: When asked about why not taking bp pills states "this would be a great book". States mood "so-so", states thinking about alot of life things, poor choices, myself. States he thinks theres intelligence gathering on the unit. 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 Patient is refusing medications. Patient educated about how medications can be helpful for paranoia. States will take medication tonight. Denies hallucinations, states he thinks the room is bugged". VITAL SIGNS: See below. NEW TEST RESULTS: none, see below CURRENT MEDICATIONS: See below. MENTAL STATUS EXAMINATION: Patient is a 36-year old male, who is in no acute distress, elevated BMI Speech: Is spontaneous, decreased amount Language skills are poor Thought processes including: thought blocking, Thought content: continues to report has brief periods of suicidal ideation because he thinks people are out to get him Abstract reasoning, and computation: poor Description of associations: concrete Description of abnormal or psychotic thoughts: continues to be paranoid Judgment: poor Insight: poor Orientation: x4 Recent and remote memory: intact Attention span and concentration: decreased Language: greek Fund of knowledge: below average based on interview Mood: "okay" Affect: Continues to be flat, paranoid, guarded, internally preoccupied, disorganized DIAGNOSES: Unspecified psychotic disorder Major depressive disorder, recurrent, severe, with psychotic features ASSESSMENT: No change patient continues to be paranoid and disorganized, educated in a safe supportive environment, encouraged to take medications. MANAGEMENT PLAN: Continue paliperidone 3 mg qam, 6 mg qhs, continue to offer medications, patient refuses but states will take a dose tonight reportedly. TIME SPENT: 20 minutes. Vital Signs Vital Signs Date Time Temp Pulse Resp B/P (MAP) Pulse Ox O2 Delivery O2 Flow Rate FiO2 10/25/21 06:30 97.5 95 18 158/98 (118) 98 Room Air Current Medications Current Medications Medications (Trade) Dose Ordered Sig/Opal Route PRN Reason Start Time Stop Time Status Last Admin Dose Admin Acetaminophen (Tylenol Tab) 650 mg Q6HP PRN PO HEADACHE or MILD DISCOMFORT 10/22/21 04:40 Al Hydrox/Mg Hydrox/Simethicone (Mylanta) 30 ml Q4HP PRN PO HEARTBURN/INDIGESTION 10/22/21 04:40 Home Med (Home Med List Complete!) ASDIRECTED XX 10/22/21 04:50 10/22/21 04:53 DC Hydrochlorothiazide (Hydrodiuril) 12.5 mg DAILY PO 10/23/21 09:00 10/24/21 08:06 Magnesium Hydroxide (Milk Of Magnesia) 30 ml DAILYPRN PRN PO CONSTIPATION 10/22/21 04:40 Nicotine (Nicoderm Cq 21mg) 1 patch DAILY TD 10/22/21 09:00 Paliperidone (Invega) 3 mg QAM PO 10/25/21 09:00 Paliperidone (Invega) 6 mg DAILY PO 10/23/21 09:00 10/24/21 09:10 Sertraline HCl (Zoloft) 50 mg DAILY PO 10/22/21 09:00 10/24/21 09:10 Trazodone HCl (Desyrel) 50 mg QHSP PRN PO INSOMNIA 10/22/21 04:40 Allergies Coded Allergies: No Known Allergies (Unverified , 10/13/21) VÍCTOR CESAR MD Oct 25, 2021 11:07
[2021-10-26] VITALS (7 sets, daily range): BP systolic 114–178; BP diastolic 73–89
[2021-10-26] MEDS: NICOTINE 21MG/24HR 1 EA TRANSDERMAL TD SCH (09:00)
[2021-10-26] MEDS: SERTRALINE HCL 50 MG TAB PO SCH (09:56)
[2021-10-26] MEDS: PALIPERIDONE 6 MG ER TAB (INVEGA) PO SCH (09:56)
[2021-10-26] MEDS: PALIPERIDONE 3 MG ER TAB (INVEGA) PO SCH (09:56)
[2021-10-26] MEDS: hydroCHLOROthiazide 12.5 MG CAPSULE PO SCH (09:57)
--- NOTE | 2021-10-26 10:09 | MHIPNPDOC ---
[facility] Progress Note Progress Note DATE OF SERVICE: 10/26/21 HISTORY: Patient is a 36 -year-old , Unemployed, Domiciled, , male, who presented to the ED with suicidal ideation to jump off of a bridge secondary to anxiety and paranoia related to concerns over past sexual offenses which have made him a registered sex offender. He notes that he stopped taking his medications a few weeks ago as he felt they were making him a zombie and has had decline in his mental health since that period time. He endorses that he would like to restart medications as they were helpful previously, but would like to talk about other alternatives. He is also interested in looking for a different clinic as he felt that the community clinic at [facility] where he is currently going was not in a very helpful place. Currently endorses having some suicidal ideations without current plan, also endorses paranoia and auditory hallucinations of people accusing him of actions. States that when he asked people about this they will deny that they have said that and he has difficulty understanding which things are reality in which things or not. VITAL SIGNS: See below. NEW TEST RESULTS: None CURRENT MEDICATIONS: See below. MENTAL STATUS EXAMINATION: Patient is a 36 -year-old , Unemployed, Domiciled, , male, who presented to the ED with suicidal ideation to jump off of a bridge secondary to anxiety and paranoia related to concerns over past sexual offenses which have made him a registered sex offender. Speech: Is spontaneous, decreased amount, minimal responses Language skills are poor Thought processes including: thought blocking, Thought content: reports that he has fleeting suicidal thinking because he thinks people are out to get him Abstract reasoning, and computation: poor Description of associations: concrete Description of abnormal or psychotic thoughts: continues to be paranoid Judgment: poor Insight: poor Orientation: x4 Recent and remote memory: intact Attention span and concentration: decreased Language: Kiswahili/Fair Fund of knowledge: below average based on interview Mood: Depressed Affect: Continues to be flat, paranoid, guarded, internally preoccupied, disorganized DIAGNOSES: Unspecified psychotic disorder Major depressive disorder, recurrent, severe, with psychotic features ASSESSMENT: Patient has been sporadic with taking medications. He initially denies suicidal ideations today, states that his "pressure" from other people caused him to be suicidal. He states that his family were saying this like they was lying to them, he does not listen, and that he isn't taking his medications. Says he stopped taking medications 6 months to a year. Says he is fearful of taking medications, although his is requiring him to take the medications in order to return home. Fears that he will be locked in a closet once he takes that medications. Remains paranoid, denies auditory hallucinations at the time of the interview. He states that he doesn't need medications because if he "told the truth from the get-go he wouldn't have felt this way." States that he has continued intrusive thinking about his past sexual offenses. He continues to be paranoid, withdrawn, has disorganized thinking. I have reviewed with patient that his history of admissions have been low and that this is because although he had been inconsistent with medications, he was taking them more often than not. Educated patient on mental illness, symptoms and medications and mechanism of action. He appears to have improved understanding and stated that he would take his AM medications when he left the interview. Patient is not safe for discharge at this time due to his poor insight/judgment and fleeting suicidal ideations. MANAGEMENT PLAN: Continue all medications and supportive therapies TIME SPENT: 25 minutes. Vital Signs Vital Signs Date Time Temp Pulse Resp B/P (MAP) Pulse Ox O2 Delivery O2 Flow Rate FiO2 10/26/21 08:27 Room Air 10/25/21 06:30 97.5 95 18 158/98 (118) 98 Current Medications Current Medications Medications (Trade) Dose Ordered Sig/Opal Route PRN Reason Start Time Stop Time Status Last Admin Dose Admin Acetaminophen (Tylenol Tab) 650 mg Q6HP PRN PO HEADACHE or MILD DISCOMFORT 10/22/21 04:40 Al Hydrox/Mg Hydrox/Simethicone (Mylanta) 30 ml Q4HP PRN PO HEARTBURN/INDIGESTION 10/22/21 04:40 Home Med (Home Med List Complete!) ASDIRECTED XX 10/22/21 04:50 10/22/21 04:53 DC Hydrochlorothiazide (Hydrodiuril) 12.5 mg DAILY PO 10/23/21 09:00 10/24/21 08:06 Magnesium Hydroxide (Milk Of Magnesia) 30 ml DAILYPRN PRN PO CONSTIPATION 10/22/21 04:40 Nicotine (Nicoderm Cq 21mg) 1 patch DAILY TD 10/22/21 09:00 Paliperidone (Invega) 3 mg QAM PO 10/25/21 09:00 Paliperidone (Invega) 6 mg DAILY PO 10/23/21 09:00 10/24/21 09:10 Sertraline HCl (Zoloft) 50 mg DAILY PO 10/22/21 09:00 10/24/21 09:10 Trazodone HCl (Desyrel) 50 mg QHSP PRN PO INSOMNIA 10/22/21 04:40 Allergies Coded Allergies: No Known Allergies (Unverified , 10/13/21) YANCI HUMPHRIES CARPENTER SUPERVISOR Oct 26, 2021 09:55
[2021-10-26] MEDS: REMEDY PHYTOPLEX Z-GUARD PASTE 113GM TUBE (FROM STOREROOM PRODUCT) TOP PRN (11:58)
[2021-10-26] MEDS ORDERED: HALOPERIDOL 5MG/ML VIAL (J1630 PER 1) As Ordered ONE ×2 (17:25→17:26)
[2021-10-26] MEDS ORDERED: HALOPERIDOL 5MG/ML VIAL (J1630 PER 1) IM ONE (17:25)
[2021-10-26] MEDS ORDERED: diphenhydrAMINE 50MG/ML VIAL (J1200) IM ONE (17:25)
[2021-10-26] MEDS ORDERED: LORazepam 2 MG/ML VIAL As Ordered ONE (17:25)
[2021-10-26] MEDS ORDERED: LORazepam 2 MG/ML VIAL IM ONE (17:25)
[2021-10-26] MEDS ORDERED: diphenhydrAMINE 50MG/ML VIAL (J1200) As Ordered ONE (17:26)
--- NOTE | 2021-10-26 17:59 | IPNPDOC ---
Text Note Date of Service The patient was seen on 10/26/21. NOTE Code 25 note: Code 25 was called by [facility] staff as the patient was paranoid and was not following direction of the staff and was being destructive. Patient damaged the wall that divides the active construction site and the rest of the unit. By the time of my arrival, patient had appeared calm and was able to be directed into the restraint room. Patient was able to be directed onto lying on the bed and replacing physical restraints that were ordered by psychiatry. Patient was also given chemical restraints with a one-time dose of medication. I came down to evaluate the patient and when I stated my name, the patient asked me to remove by mask to prove I was myself as he did not believe me. I attempted to show the patient my identification from the hospital however, he stated that he still did not believe me. Patient was otherwise feeling well did not have any complaints of pain. Patient's heart was in a regular rate and rhythm with no murmurs rubs or gallops with a normal S1 and S2. Lungs were clear to auscultation bilaterally. Abdomen was soft, nontender to palpation and had normal bowel sounds. There is no edema in the legs and the neck showed no lymphadenopathy or thyromegaly. Patient had normocephalic, atraumatic head. Patient was left in the care of the inpatient mental health unit nurses in physical restraints. VS,Fishbone, I+O VS, Fishbone, I+O Vital Signs Date Time Temp Pulse Resp B/P (MAP) Pulse Ox O2 Delivery O2 Flow Rate FiO2 10/26/21 17:05 98.0 86 16 146/86 (106) 10/26/21 08:27 Room Air 10/25/21 06:30 98 MARKELL BEAN Oct 26, 2021 17:59
[2021-10-27 06:58] VITALS: BP 122/79
[2021-10-27] MEDS: NICOTINE 21MG/24HR 1 EA TRANSDERMAL TD SCH ×2 (09:00→13:40)
[2021-10-27] MEDS: PALIPERIDONE 3 MG ER TAB (INVEGA) PO SCH (09:36)
[2021-10-27] MEDS: hydroCHLOROthiazide 12.5 MG CAPSULE PO SCH (09:37)
[2021-10-27] MEDS: PALIPERIDONE 6 MG ER TAB (INVEGA) PO SCH (09:37)
[2021-10-27] MEDS: SERTRALINE HCL 50 MG TAB PO SCH (09:37)
--- NOTE | 2021-10-27 13:17 | MHPR ---
General Date: Oct 27, 2021 Time: 12:45 Post-Restraint Evaluation THE OUTCOME OF THE RESTRAINT: Positive, patient was causing damage to a wall that divides the active construction site and the rest of the unit. He was not redirectable and a Code 25 was called for his violent and aggression and damage to property in the hospital. EFFECTIVENESS OF THE RESTRAINT: Mechanical and/or chemical: [Positive]. Patient was calmed down with use of medications and restraints due to his delusional and paranoid thinking. ANY EVIDENCE THAT THE PATIENT WAS AFFECTED EMOTIONALLY: At this time, patient remains delusional and paranoid. He is calmer. He believes that the government placed him on the unit. ANY NEED FOR COUNSELING/ASSISTANCE: Not at this time CHANGES IN TREATMENT PLAN: None, will continue to reinforce antipsychotic medications that will stabilize RECOMMENDATIONS FOR FUTURE INCIDENTS: Verbal Limit Setting Mediation Redirection Contract for Safety Staff Support Behavioral Techniques Offer Oral Medication For Agitation Calming Interventions YANCI HUMPHRIES NP Oct 27, 2021 13:17
--- NOTE | 2021-10-27 13:18 | MHIPNPDOC ---
[facility] Progress Note Progress Note DATE OF SERVICE: 10/27/21 HISTORY: Patient is a 36 -year-old , Unemployed, Domiciled, , male, who presented to the ED with suicidal ideation to jump off of a bridge secondary to anxiety and paranoia related to concerns over past sexual offenses which have made him a registered sex offender. He notes that he stopped taking his medications a few weeks ago as he felt they were making him a zombie and has had decline in his mental health since that period time. He endorses that he would like to restart medications as they were helpful previously, but would like to talk about other alternatives. He is also interested in looking for a different clinic as he felt that the community clinic at [facility] where he is currently going was not in a very helpful place. Currently endorses having some suicidal ideations without current plan, also endorses paranoia and auditory hallucinations of people accusing him of actions. States that when he asked people about this they will deny that they have said that and he has difficulty understanding which things are reality in which things or not. VITAL SIGNS: See below. NEW TEST RESULTS: None CURRENT MEDICATIONS: See below. MENTAL STATUS EXAMINATION: Patient is a 36 -year-old , Unemployed, Domiciled, , male, who presented to the ED with suicidal ideation to jump off of a bridge secondary to anxiety and paranoia related to concerns over past sexual offenses which have made him a registered sex offender. Speech: Is spontaneous, decreased amount, minimal responses Language skills are poor Thought processes including: thought blocking Thought content: increased paranoia today Abstract reasoning, and computation: poor Description of associations: concrete Description of abnormal or psychotic thoughts: continues to be paranoid Judgment: poor Insight: poor Orientation: x4 Recent and remote memory: intact Attention span and concentration: decreased Language: Monegasque/Fair Fund of knowledge: below average based on interview Mood: Neutral Affect: Continues to be flat, paranoid, guarded, internally preoccupied DIAGNOSES: Unspecified psychotic disorder Major depressive disorder, recurrent, severe, with psychotic features ASSESSMENT: Patient is delusional today, he believes that the government is looking for him on the unit, states that knows a lot of people that are here, 's Uncle, his Dad and mom were here - states that they were on the unit because they investigating him. Having visual hallucinations. Reports that his room mate who was discharged yesterday is a jaramillo. He appears to be psychotic, reporting that he has both visual and auditory hallucinations (hearing his mother) and making delusional statements about his family letting the government know that he is here, states "they have been after me for awhile." He is unable to make eye contact, is very disengaged in the interview. Remains unsafe to discharge due to his psychotic symptoms, delusional thoughts about the government and why is admitted, remains paranoid about staff and peers and he demonstrates poor insight/judgment. He denied suicidal ideations. According to staff, patient attempted to break through construction wall/door to get out because he felt that he needed to leave the unit. It was reported that he had called 911, reported that he was on the COVID unit and that the staff were trying to kill him. Patient was tested for COVID due to another patient testing positive. He then became paranoid that he was on the COVID floor believing that he was being killed. MANAGEMENT PLAN: Continue all medications and supportive therapies TIME SPENT: 25 minutes. Vital Signs Vital Signs Date Time Temp Pulse Resp B/P (MAP) Pulse Ox O2 Delivery O2 Flow Rate FiO2 10/27/21 06:58 98.7 116 16 122/79 (93) 96 Room Air Laboratory Data 24H Labs Laboratory Tests 2 10/26/21 18:00: Coronavirus (COVID-19)(PCR) NEGATIVE Current Medications Current Medications Medications (Trade) Dose Ordered Sig/Opal Route PRN Reason Start Time Stop Time Status Last Admin Dose Admin Acetaminophen (Tylenol Tab) 650 mg Q6HP PRN PO HEADACHE or MILD DISCOMFORT 10/22/21 04:40 Al Hydrox/Mg Hydrox/Simethicone (Mylanta) 30 ml Q4HP PRN PO HEARTBURN/INDIGESTION 10/22/21 04:40 Home Med (Home Med List Complete!) ASDIRECTED XX 10/22/21 04:50 10/22/21 04:53 DC Hydrochlorothiazide (Hydrodiuril) 12.5 mg DAILY PO 10/23/21 09:00 10/27/21 09:37 Magnesium Hydroxide (Milk Of Magnesia) 30 ml DAILYPRN PRN PO CONSTIPATION 10/22/21 04:40 Nicotine (Nicoderm Cq 21mg) 1 patch DAILY TD 10/22/21 09:00 Paliperidone (Invega) 3 mg QAM PO 10/25/21 09:00 10/27/21 09:36 Paliperidone (Invega) 6 mg DAILY PO 10/23/21 09:00 10/27/21 09:37 Sertraline HCl (Zoloft) 50 mg DAILY PO 10/22/21 09:00 10/27/21 09:37 Trazodone HCl (Desyrel) 50 mg QHSP PRN PO INSOMNIA 10/22/21 04:40 Allergies Coded Allergies: No Known Allergies (Unverified , 10/13/21) YANCI HUMPHRIES NP Oct 27, 2021 13:08
[2021-10-27] MEDS: REMEDY PHYTOPLEX Z-GUARD PASTE 113GM TUBE (FROM STOREROOM PRODUCT) TOP PRN (14:01)
[2021-10-27 18:37] VITALS: BP 151/76
[2021-10-27] MEDS: traZODone 50 MG TAB PO PRN (22:11)
[2021-10-28 06:00] VITALS: BP 136/89
[2021-10-28] MEDS: PALIPERIDONE 6 MG ER TAB (INVEGA) PO SCH (08:02)
[2021-10-28] MEDS: SERTRALINE HCL 50 MG TAB PO SCH (08:02)
[2021-10-28] MEDS: PALIPERIDONE 3 MG ER TAB (INVEGA) PO SCH (08:02)
[2021-10-28] MEDS: NICOTINE 21MG/24HR 1 EA TRANSDERMAL TD SCH (08:03)
[2021-10-28] MEDS: hydroCHLOROthiazide 12.5 MG CAPSULE PO SCH (08:03)
--- NOTE | 2021-10-28 09:40 | MHIPNPDOC ---
[facility] Progress Note Progress Note DATE OF SERVICE: 10/28/21 HISTORY: Patient is a 36 -year-old , Unemployed, Domiciled, , male, who presented to the ED with suicidal ideation to jump off of a bridge secondary to anxiety and paranoia related to concerns over past sexual offenses which have made him a registered sex offender. He notes that he stopped taking his medications a few weeks ago as he felt they were making him a zombie and has had decline in his mental health since that period time. He endorses that he would like to restart medications as they were helpful previously, but would like to talk about other alternatives. He is also interested in looking for a different clinic as he felt that the community clinic at [facility] where he is currently going was not in a very helpful place. Currently endorses h aving some suicidal ideations without current plan, also endorses paranoia and auditory hallucinations of people accusing him of actions. States that when he asked people about this they will deny that they have said that and he has difficulty understanding which things are reality in which things or not. VITAL SIGNS: See below. NEW TEST RESULTS: None CURRENT MEDICATIONS: See below. MENTAL STATUS EXAMINATION: Patient is a 36 -year-old , Unemployed, Domiciled, , male, who presented to the ED with suicidal ideation to jump off of a bridge secondary to anxiety and paranoia related to concerns over past sexual offenses which have made him a registered sex offender. Speech: Is spontaneous, decreased amount, minimal responses Language skills are poor Thought processes including: thought blocking Thought content: increased paranoia today Abstract reasoning, and computation: poor Description of associations: concrete Description of abnormal or psychotic thoughts: continues to be paranoid Judgment: poor Insight: poor Orientation: x4 Recent and remote memory: intact Attention span and concentration: decreased Language: Citizen Of [place]/Fair Fund of knowledge: below average based on interview Mood: Neutral Affect: Continues to be flat, paranoid, guarded, internally preoccupied DIAGNOSES: Unspecified psychotic disorder Major depressive disorder, recurrent, severe, with psychotic features ASSESSMENT: Patient is disengaged in the interview, very paranoid and delusional. He states. "I know something is going on, I think everybody is lying to me, everybody is lying." Reports that his paranoid thoughts have been going on for along while but doesn't give a numerical time frame. Further states, "No amount of medicine is going to change my mind about what he feels and what's going on. The truth to come out - My Dad was here, even though it was Stanislaw, his real name is Chele. There is someone else I knew, in the room next to me, someone else that I know was here. I know something is going on, I just don't know what. I can't trust my , mom, no one." His eye contact is avoidant, he is not agitated or aggressive in the interview but remains psychotic and delusional. Continues to believe that p eople on the unit are sent to watch him. Remains unsafe to discharge due to his psychotic symptoms, delusional thoughts about the government and why is admitted, remains paranoid about staff and peers and he demonstrates poor insight/judgment. Continues to have self-references that people are watching him in order to kill him. MANAGEMENT PLAN: Continue all medications and supportive therapies TIME SPENT: 25 minutes. Vital Signs Vital Signs Date Time Temp Pulse Resp B/P (MAP) Pulse Ox O2 Delivery O2 Flow Rate FiO2 10/28/21 06:00 97.3 101 16 136/89 (105) 97 10/27/21 06:58 Room Air Current Medications Current Medications Medications (Trade) Dose Ordered Sig/Opal Route PRN Reason Start Time Stop Time Status Last Admin Dose Admin Acetaminophen (Tylenol Tab) 650 mg Q6HP PRN PO HEADACHE or MILD DISCOMFORT 10/22/21 04:40 Al Hydrox/Mg Hydrox/Simethicone (Mylanta) 30 ml Q4HP PRN PO HEARTBURN/INDIGESTION 10/22/21 04:40 Home Med (Home Med List Complete!) ASDIRECTED XX 10/22/21 04:50 10/22/21 04:53 DC Hydrochlorothiazide (Hydrodiuril) 12.5 mg DAILY PO 10/23/21 09:00 10/28/21 08:03 Magnesium Hydroxide (Milk Of Magnesia) 30 ml DAILYPRN PRN PO CONSTIPATION 10/22/21 04:40 Nicotine (Nicoderm Cq 21mg) 1 patch DAILY TD 10/22/21 09:00 10/27/21 13:03 DC Nicotine (Nicoderm Cq 21mg) 1 patch DAILY TD 10/27/21 09:00 10/28/21 08:03 Paliperidone (Invega) 3 mg QAM PO 10/25/21 09:00 10/28/21 08:02 Paliperidone (Invega) 6 mg DAILY PO 10/23/21 09:00 10/28/21 08:02 Sertraline HCl (Zoloft) 50 mg DAILY PO 10/22/21 09:00 10/28/21 08:02 Trazodone HCl (Desyrel) 50 mg QHSP PRN PO INSOMNIA 10/22/21 04:40 10/27/21 22:11 Allergies Coded Allergies: No Known Allergies (Unverified , 10/13/21) YANCI HUMPHRIES NP Oct 28, 2021 09:40
[2021-10-28] MEDS ORDERED: BENZTROPINE 0.5 MG TAB PO PRN (16:05)
[2021-10-28] MEDS: REMEDY PHYTOPLEX Z-GUARD PASTE 113GM TUBE (FROM STOREROOM PRODUCT) TOP PRN (16:11)
[2021-10-28 17:49] VITALS: BP 154/112
[2021-10-28] MEDS: haloperidoL 5 MG TAB PO SCH (22:09)
[2021-10-29 06:23] VITALS: BP 152/92
[2021-10-29] MEDS: haloperidoL 5 MG TAB PO SCH ×2 (08:30→20:17)
[2021-10-29] MEDS: SERTRALINE HCL 50 MG TAB PO SCH (08:30)
[2021-10-29] MEDS: NICOTINE 21MG/24HR 1 EA TRANSDERMAL TD SCH (08:30)
[2021-10-29] MEDS: hydroCHLOROthiazide 12.5 MG CAPSULE PO SCH (08:30)
[2021-10-29] MEDS: REMEDY PHYTOPLEX Z-GUARD PASTE 113GM TUBE (FROM STOREROOM PRODUCT) TOP PRN (10:08)
[2021-10-29 10:30] LABS: CHOLESTEROL RISK RATIO 2.767 (<5)
--- NOTE | 2021-10-29 12:09 | MHIPNPDOC ---
[facility] Progress Note Progress Note DATE OF SERVICE: 10/29/21 HISTORY: Patient is a 36 -year-old , Unemployed, Domiciled, , male, who presented to the ED with suicidal ideation to jump off of a bridge secondary to anxiety and paranoia related to concerns over past sexual offenses which have made him a registered sex offender. He notes that he stopped taking his medications a few weeks ago as he felt they were making him a zombie and has had decline in his mental health since that period time. He endorses that he would like to restart medications as they were helpful previously, but would like to talk about other alternatives. He is also interested in looking for a different clinic as he felt that the community clinic at [facility] where he is currently going was not in a very helpful place. Currently endorses h aving some suicidal ideations without current plan, also endorses paranoia and auditory hallucinations of people accusing him of actions. States that when he asked people about this they will deny that they have said that and he has difficulty understanding which things are reality in which things or not. VITAL SIGNS: See below. NEW TEST RESULTS: None CURRENT MEDICATIONS: See below. MENTAL STATUS EXAMINATION: Patient is a 36 -year-old , Unemployed, Domiciled, , male, who presented to the ED with suicidal ideation to jump off of a bridge secondary to anxiety and paranoia related to concerns over past sexual offenses which have made him a registered sex offender. Speech: Is spontaneous, increased responses, normal rate, tone, and volume Language skills are fair Thought processes including: linear, more coherent Thought content: decreased paranoia today Abstract reasoning, and computation: fair Description of associations: concrete Description of abnormal or psychotic thoughts: decreased paranoia Judgment: fair Insight: fair Orientation: x4 Recent and remote memory: intact Attention span and concentration: good Language: Barbadian/Fair Fund of knowledge: average based on interview Mood: euthymic Affect: brighter DIAGNOSES: Unspecified psychotic disorder Major depressive disorder, recurrent, severe, with psychotic features ASSESSMENT: Patient states feeling better after taking medications. Reports no paranoid thoughts, depression, or suicidal ideations. Patient eye contact is improved, maintaining eye contact, and was smiling during interview. He remembers being paranoid yesterday and states he is more in control of his paranoia today. Patient encouraged to continue medications as prescribed. He reports that the change in medication is improving his thoughts. Discussed the medication change, states that the Paliperidone was not effective and feels that the Haldol is improving him. He was more engaged in the interview, less paranoia and no delusional statements. Will increase Haldol in two days, and discuss with patient Haldol Decanoate. MANAGEMENT PLAN: Continue all medications and supportive therapies. Probably discharge next week. TIME SPENT: 25 minutes. Vital Signs Vital Signs Date Time Temp Pulse Resp B/P (MAP) Pulse Ox O2 Delivery O2 Flow Rate FiO2 10/29/21 06:23 98.9 108 18 152/92 (112) 95 Room Air Laboratory Data 24H Labs Laboratory Tests 2 10/29/21 09:34: Triglycerides Level 159H, Total Cholesterol 119, LDL Cholesterol 44, Non-HDL Cholesterol (LDL + VLDL) 76, Total HDL Cholesterol 43, Cholesterol/HDL Ratio 2.767 Current Medications Current Medications Medications (Trade) Dose Ordered Sig/Opal Route PRN Reason Start Time Stop Time Status Last Admin Dose Admin Acetaminophen (Tylenol Tab) 650 mg Q6HP PRN PO HEADACHE or MILD DISCOMFORT 10/22/21 04:40 Al Hydrox/Mg Hydrox/Simethicone (Mylanta) 30 ml Q4HP PRN PO HEARTBURN/INDIGESTION 10/22/21 04:40 Benztropine Mesylate (Cogentin) 0.5 mg BIDP PRN PO EPS 10/28/21 16:05 Haloperidol (Haldol) 5 mg BID PO 10/28/21 21:00 10/29/21 08:30 Home Med (Home Med List Complete!) ASDIRECTED XX 10/22/21 04:50 10/22/21 04:53 DC Hydrochlorothiazide (Hydrodiuril) 12.5 mg DAILY PO 10/23/21 09:00 10/29/21 08:30 Magnesium Hydroxide (Milk Of Magnesia) 30 ml DAILYPRN PRN PO CONSTIPATION 10/22/21 04:40 Nicotine (Nicoderm Cq 21mg) 1 patch DAILY TD 10/22/21 09:00 10/27/21 13:03 DC Nicotine (Nicoderm Cq 21mg) 1 patch DAILY TD 10/27/21 09:00 10/29/21 08:30 Paliperidone (Invega) 3 mg QAM PO 10/25/21 09:00 10/28/21 16:10 DC 10/28/21 08:02 Paliperidone (Invega) 6 mg DAILY PO 10/23/21 09:00 10/28/21 16:10 DC 10/28/21 08:02 Sertraline HCl (Zoloft) 50 mg DAILY PO 10/22/21 09:00 10/29/21 08:30 Trazodone HCl (Desyrel) 50 mg QHSP PRN PO INSOMNIA 10/22/21 04:40 10/27/21 22:11 Allergies Coded Allergies: No Known Allergies (Unverified , 10/13/21) YANCI HUMPHRIES NP Oct 29, 2021 12:08
[2021-10-30 07:25] VITALS: BP 133/82
[2021-10-30] MEDS: SERTRALINE HCL 50 MG TAB PO SCH (08:07)
[2021-10-30] MEDS: hydroCHLOROthiazide 12.5 MG CAPSULE PO SCH (08:07)
[2021-10-30] MEDS: haloperidoL 5 MG TAB PO SCH (08:07)
[2021-10-30] MEDS: NICOTINE 21MG/24HR 1 EA TRANSDERMAL TD SCH (08:08)
--- NOTE | 2021-10-30 11:32 | MHIPNPDOC ---
[facility] Progress Note Progress Note DATE OF SERVICE: 10/30/21 HISTORY: Patient is a 36 -year-old , Unemployed, Domiciled, , male, who presented to the ED with suicidal ideation to jump off of a bridge secondary to anxiety and paranoia related to concerns over past sexual offenses which have made him a registered sex offender. He notes that he stopped taking his medications a few weeks ago as he felt they were making him a zombie and has had decline in his mental health since that period time. He endorses that he would like to restart medications as they were helpful previously, but would like to talk about other alternatives. He is also interested in looking for a different clinic as he felt that the community clinic at [facility] where he is currently going was not in a very helpful place. Currently endorses h aving some suicidal ideations without current plan, also endorses paranoia and auditory hallucinations of people accusing him of actions. States that when he asked people about this they will deny that they have said that and he has difficulty understanding which things are reality in which things or not. VITAL SIGNS: See below. NEW TEST RESULTS: None CURRENT MEDICATIONS: See below. MENTAL STATUS EXAMINATION: Patient is a 36 -year-old , Unemployed, Domiciled, , male, who presented to the ED with suicidal ideation to jump off of a bridge secondary to anxiety and paranoia related to concerns over past sexual offenses which have made him a registered sex offender. Speech: Is spontaneous, minimal responses, normal rate, tone, and volume Language skills are fair Thought processes including: linear, more coherent Thought content: decreased paranoia today Abstract reasoning, and computation: fair Description of associations: concrete Description of abnormal or psychotic thoughts: has mild paranoia today Judgment: fair Insight: fair Orientation: x4 Recent and remote memory: intact Attention span and concentration: good Language: Thai/Fair Fund of knowledge: average based on interview Mood: neutral Affect: flat DIAGNOSES: Unspecified psychotic disorder Major depressive disorder, recurrent, severe, with psychotic features ASSESSMENT: Patient is alert and oriented. Denies suicidal ideations, denies paranoia but appears to continue to have paranoid thoughts. When asked to discuss why he had believed staff members were watching him, he states that they are still watching him. Appears to have some paranoia about patients with certain attire. Is agreeable to increase of his Haldol, discussed Haldol Decanoate and patient is declined the education. Patient's eyes contact had regressed to less than fair eye contact. He had minimal one to two word responses today. And he was less than engaged in the interview today. He is requesting to be discharged today, reinforcing that he is not longer suicidal. Reviewed with patient that he had not taken his medications initially and that he was very paranoid and was blocked up until a two days ago. Patient is agreeable to staying the weekend. MANAGEMENT PLAN: Continue all medications and supportive therapies. Probably discharge next week. TIME SPENT: 25 minutes. Vital Signs Vital Signs Date Time Temp Pulse Resp B/P (MAP) Pulse Ox O2 Delivery O2 Flow Rate FiO2 10/30/21 07:25 97.4 102 20 133/82 (99) 95 Room Air Current Medications Current Medications Medications (Trade) Dose Ordered Sig/Opal Route PRN Reason Start Time Stop Time Status Last Admin Dose Admin Acetaminophen (Tylenol Tab) 650 mg Q6HP PRN PO HEADACHE or MILD DISCOMFORT 10/22/21 04:40 Al Hydrox/Mg Hydrox/Simethicone (Mylanta) 30 ml Q4HP PRN PO HEARTBURN/INDIGESTION 10/22/21 04:40 Benztropine Mesylate (Cogentin) 0.5 mg BIDP PRN PO EPS 10/28/21 16:05 Haloperidol (Haldol) 5 mg BID PO 10/28/21 21:00 10/30/21 11:23 DC 10/30/21 08:07 Haloperidol (Haldol) 5 mg QAM PO 10/31/21 09:00 UNV Haloperidol (Haldol) 10 mg QHS PO 10/30/21 21:00 UNV Home Med (Home Med List Complete!) ASDIRECTED XX 10/22/21 04:50 10/22/21 04:53 DC Hydrochlorothiazide (Hydrodiuril) 12.5 mg DAILY PO 10/23/21 09:00 10/30/21 08:07 Magnesium Hydroxide (Milk Of Magnesia) 30 ml DAILYPRN PRN PO CONSTIPATION 10/22/21 04:40 Nicotine (Nicoderm Cq 21mg) 1 patch DAILY TD 10/22/21 09:00 10/27/21 13:03 DC Nicotine (Nicoderm Cq 21mg) 1 patch DAILY TD 10/27/21 09:00 10/30/21 08:08 Paliperidone (Invega) 3 mg QAM PO 10/25/21 09:00 10/28/21 16:10 DC 10/28/21 08:02 Paliperidone (Invega) 6 mg DAILY PO 10/23/21 09:00 10/28/21 16:10 DC 10/28/21 08:02 Sertraline HCl (Zoloft) 50 mg DAILY PO 10/22/21 09:00 10/30/21 08:07 Trazodone HCl (Desyrel) 50 mg QHSP PRN PO INSOMNIA 10/22/21 04:40 10/27/21 22:11 Allergies Coded Allergies: No Known Allergies (Unverified , 10/13/21) YANCI HUMPHRIES NP Oct 30, 2021 11:32
[2021-10-30 18:51] VITALS: BP 131/74
[2021-10-30] MEDS: traZODone 50 MG TAB PO PRN (20:02)
[2021-10-31 06:24] VITALS: BP 120/74
[2021-10-31] MEDS: hydroCHLOROthiazide 12.5 MG CAPSULE PO SCH (08:22)
[2021-10-31] MEDS: SERTRALINE HCL 50 MG TAB PO SCH (08:22)
[2021-10-31] MEDS: haloperidoL 5 MG TAB PO SCH (08:22)
[2021-10-31] MEDS: NICOTINE 21MG/24HR 1 EA TRANSDERMAL TD SCH (08:22)
[2021-10-31 17:51] VITALS: BP 116/58
[2021-10-31] MEDS: traZODone 50 MG TAB PO PRN (20:00)
[2021-11-01] MEDS ORDERED: traZODone 50 MG TAB PO ONE (00:25)
[2021-11-01 07:27] VITALS: BP 133/84
[2021-11-01] MEDS: NICOTINE 21MG/24HR 1 EA TRANSDERMAL TD SCH (08:38)
[2021-11-01] MEDS: haloperidoL 5 MG TAB PO SCH (08:38)
[2021-11-01] MEDS: hydroCHLOROthiazide 12.5 MG CAPSULE PO SCH (08:38)
[2021-11-01] MEDS: SERTRALINE HCL 50 MG TAB PO SCH (08:38)
[2021-11-01 19:08] VITALS: BP 131/87
[2021-11-01] MEDS: traZODone 50 MG TAB PO PRN (20:01)
[2021-11-02 06:49] VITALS: BP 141/83
[2021-11-02] MEDS: NICOTINE 21MG/24HR 1 EA TRANSDERMAL TD SCH (08:18)
[2021-11-02] MEDS: haloperidoL 5 MG TAB PO SCH (08:19)
[2021-11-02] MEDS: SERTRALINE HCL 50 MG TAB PO SCH (08:19)
[2021-11-02] MEDS: hydroCHLOROthiazide 12.5 MG CAPSULE PO SCH (08:20)
[2021-11-02] MEDS ORDERED: HYDR12CA PO (10:44)
[2021-11-02] MEDS ORDERED: NICO21PAT TD (10:44)
[2021-11-02] MEDS ORDERED: TRAZ-252 PO (10:44)
[2021-11-02] MEDS ORDERED: HALO5TA PO (10:44)
[2021-11-02] MEDS ORDERED: Zinc Oxide/Petrolatum,White TOP (10:44)
[2021-11-02] MEDS ORDERED: SERT50TA29 PO (10:44)
[2021-11-02] MEDS ORDERED: BENZ0.5T23 PO (10:44)
[2021-11-02] MEDS ORDERED: HALO10TA20 PO (10:44)
--- NOTE | 2021-11-02 11:24 | MHDSPDOC ---
[facility] Discharge Summary Discharge Summary DATE OF ADMISSION: Oct 22, 2021 at 04:39 DATE OF DISCHARGE: November 02, 2021 at 1119 DISCHARGE DIAGNOSES: Unspecified psychotic disorder rule out Major depressive disorder, recurrent, severe, with psychotic features REASON FOR ADMISSION: Patient is a 36 -year-old , Unemployed, Domiciled, , male, who presented to the ED with suicidal ideation to jump off of a bridge secondary to anxiety and paranoia related to concerns over past sexual offenses which have made him a registered sex offender. He notes that he stopped taking his medications a few weeks ago as he felt they were making him a zombie and has had decline in his mental health since that period time. He endorses that he would like to restart medications as they were helpful previously, but would like to talk about other alternatives. He is also interested in looking for a different clinic as he felt that the community clinic at [facility] where he is currently going was not in a very helpful place. Currently endorses having some suicidal ideations without current plan, also endorses paranoia and auditory hallucinations of people accusing him of actions. States that when he asked people about this they will deny that they have said that and he has difficulty understanding which things are reality in which things or not. VITAL SIGNS: See below. CONSULTANTS INVOLVED: See Medical H + P by Hospitalist TREATMENT AND PROGRESS ON THE UNIT: Patient was admitted to the [facility] on a 9.39 legal status was afforded the following treatment modalities: 1) Individual Therapy 2) Group Therapy 3) Medication Management 4) Milieu Therapy 5) Safe Environment HOSPITAL COURSE: Patient was admitted to [facility] on a 9.39 legal status. Patient was admitted for suicidal ideations to jump from a bridge and psychotic symptoms of paranoia and auditory hallucinations. He was very paranoid and that he believed that his mother and father had been on the unit trying to reach him, believe that other staff members were not who they said they were but were after him. He believes that people were watching him on the unit. Patient was originally started on paliperidone, after 4 days of administration this did not seem to be effective. Haldol was started and patient had improved symptoms. Pt found medications beneficial and tolerated them well. Mood, anxiety, and intrusive thoughts improved with treatment. He has reported less paranoia and delusional thinking today. Pt attended groups during stay. Pts symptoms improved with treatment. On day of discharge pt. denied depression, anxiety, insomnia, SI/HI, hallucinations, delusions. Pt was discharged home with follow-up with [facility]. Pt felt safe for discharge. DISCHARGE ASSESSMENT: In today's interview, patient is alert and oriented, pt.s dress is appropriate. Hygiene and grooming is well-kempt. Smiles on approach and is pleasant and engaged in the interview. Denies depression and anxiety. Denies suicidal and homicidal ideation, planning or intent. Denies and is not observed with emndoza, psychotic symptoms of delusions, bizarre thinking, obsessions, paranoia, ruminations illogical thoughts, flight of ideas or having poor insight and judgement. Reinforced with patient need to abstain from alcohol and drugs. At discharge patient has normal mentation, declines further hospitalization on a voluntary status and meets criteria for discharge today. Discussed indications of medications, potential benefits and risks, alternatives (including no treatment) and questions were encouraged and answered. Patient encouraged to return to hospital if symptoms worsen or change and encouraged to call unit if he/she/they needs to speak to provider for questions regarding medi cations or care. MENTAL STATUS EXAMINATION ON DISCHARGE: Patient is a 36 -year-old , Unemployed, Domiciled, , male, who presented to the ED with suicidal ideation to jump off of a bridge secondary to anxiety and paranoia related to concerns over past sexual offenses which have made him a registered sex offender. Speech: Is fluid, conversant, normal rate, tone and volume Language skills are intact Thought processes including: linear and goal oriented Thought content: denies depression and anxiety. Denies suicidal/homicidal ideation, planning or intent. Abstract reasoning, and computation: fair Description of associations: denies, none observed Description of abnormal or psychotic thoughts: denies, none observed. Judgment: fair Insight: fair Orientation: alert and oriented to person, place, time and situation Recent and remote memory: intact Attention span and concentration: good Language: expansive Fund of knowledge: average Mood: Euthymic Mood Affect: reactive Suicide Risk Assessment: 1) Does the patient wish to be ? No 2) Since your admission, have you had any actual thought of killing yourself? No 3) Since your admission, have you been thinking about how you might do this? No 4) Since your admission, have you had these thoughts and had some intention of acting on them? No 5) Since your admission, have you started to work out or worked out the details of how to kill yourself? No 5A) Do you intent to carry out this plan? No and NA 6) Have you ever done anything, started anything, or prepared to do anything with any intent to ? No 6A) How long since your admission did you do any of these? NA MEDICATIONS ON DISCHARGE: See Medication Reconciliation PLAN/FOLLOWUP ARRANGEMENTS: Patient states he wants to follow-up with [facility] The amount of time spent in the coordination of care for this patient was approximately 25 minutes. ETOH/Disorder Med Rx ETOH/DRUG DISORDER RX: N/A Vital Signs/I&Os Vital Signs Date Time Temp Pulse Resp B/P (MAP) Pulse Ox O2 Delivery O2 Flow Rate FiO2 11/02/21 06:49 98.5 69 18 141/83 (102) 95 Room Air Medications Scheduled Haloperidol (Haloperidol) 10 Mg Tablet, 10 MG PO QHS for Psychosis, #7 Haloperidol (Haloperidol) 5 Mg Tablet, 5 MG PO QAM for Psychosis, #7 Hydrochlorothiazide (Hydrochlorothiazide) 12.5 Mg Capsule, 12.5 MG PO DAILY for Blood Pressure, #7 Nicotine (Nicotine Patch) 21 Mg Patch.td24, 1 PATCH TD DAILY for Nicotine withdrawal, #7 Sertraline HCl (Sertraline HCl) 50 Mg Tablet, 50 MG PO DAILY for depression, #7 Scheduled PRN Benztropine Mesylate (Benztropine Mesylate) 0.5 Mg Tablet, 0.5 MG PO BIDP PRN for EPS, #14 Trazodone HCl (Trazodone HCl) 50 Mg Tablet, 50 MG PO QHSP PRN for INSOMNIA, #7 [Zinc Oxide/Petrolatum,White] 1 DOSE/113 GM PASTE, 1 APLCT TOP BIDP PRN for RASH, #1 Allergies Coded Allergies: No Known Allergies (Unverified , 10/13/21) YANCI HUMPHRIES NP Nov 02, 2021 11:24
== END 2021-11-02 13:04 | disposition home or self-care (01) | DRG 751 ==
LOC: M ED 16:50 → M ED INP 10-22 04:39 → M PSY 10-22 10:06
PROVIDERS: ADMIT Psychiatry & Neurology Psychiatry; ATTEND Psychiatry & Neurology Psychiatry
DX: F33.3 Major depressive disorder, recurrent, severe with psychotic symptoms (principal); F29 Unspecified psychosis not due to a substance or known physiological condition; R45.851 Suicidal ideations; Z91.14 Patient's other noncompliance with medication regimen; Z91.51 Personal history of suicidal behavior; I10 Essential (primary) hypertension; Z20.822 Contact with and (suspected) exposure to COVID-19; R21 Rash and other nonspecific skin eruption; R60.0 Localized edema; D72.829 Elevated white blood cell count, unspecified; Z78.1 Physical restraint status

== ENCOUNTER 2021-11-14 09:10 | Emergency (ER) | payer MEDICAID, OTHER ==
[~2021-11-14] VITALS: Ht 180.3 cm; Wt 134.4 kg
[~2021-11-14 09:10] MED LIST changes: +BENZ0.5T23 PO; +HALO10TA20 PO; +HALO5TAB33 PO; +HYDR12CA PO; +NICO21PAT TD; +SERT50TA29 PO; +Zinc Oxide/Petrolatum,White TOP
[2021-11-14 09:14] VITALS: BP 155/97
== END 2021-11-14 10:40 | disposition left against medical advice (07) ==
LOC: M ED 09:10
DX: Z53.21 Procedure and treatment not carried out due to patient leaving prior to being seen by health care provider (principal)

== ENCOUNTER → 2022-03-01 | Outpatient (CLI) | payer OTHER ==
[2022-03-01 19:07] LABS: BLOOD UREA NITROGEN 12 MG/DL (7-18); CALCIUM LEVEL 8.9 MG/DL (8.5-10.1); CARBON DIOXIDE LEVEL 29 MEQ/L (21-32); CHLORIDE LEVEL 106 MEQ/L (98-107); CHOLESTEROL LEVEL 210 MG/DL (<200); CHOLESTEROL RISK RATIO 3.962 (<5); CREATININE FOR GFR 1.14 MG/DL (0.70-1.30); GLOMERULAR FILTRATION RATE > 60.0 (>60); GLUCOSE, FASTING 108 MG/DL (70-100); HDL CHOLESTEROL 53 MG/DL (>40); LDL CHOLESTEROL 113 MG/DL (<100); NON-HDL-C 157 MG/DL; POTASSIUM SERUM 4.2 MEQ/L (3.5-5.1); SODIUM LEVEL 140 MEQ/L (136-145); TRIGLYCERIDES LEVEL 219 MG/DL (<150)
[2022-03-01 19:08] LABS: HEMOGLOBIN A1c 5.6 %
== END ==
LOC: M PLALAB 15:51
PROVIDERS: ATTEND Family Medicine
DX: I10 Essential (primary) hypertension (principal)

== ENCOUNTER → 2022-03-01 | Outpatient (REF) | payer OTHER | LOC: M SFHCPLAZ 15:47 | PROVIDERS: ATTEND Family Medicine | DX: I10 Essential (primary) hypertension (principal); F31.9 Bipolar disorder, unspecified; Z53.9 Procedure and treatment not carried out, unspecified reason ==

== ENCOUNTER → 2022-04-21 | Outpatient (CLI) | payer OTHER ==
[2022-04-21 17:59] LABS: FREE T4 0.91 NG/DL (0.76-1.46); THYROID STIMULATING HORMONE 2.03 uIU/ML (0.358-3.740)
== END ==
LOC: M PLALAB 14:17
PROVIDERS: ATTEND Psychiatry & Neurology Psychiatry
DX: F31.9 Bipolar disorder, unspecified (principal)

== ENCOUNTER 2022-05-05 11:29 | Inpatient (IN) | payer MEDICAID, OTHER ==
[~2022-05-05] VITALS: Ht 175.3 cm; Wt 132.5 kg
[2022-05-05] MEDS ORDERED: LUMA42CA (11:48)
[2022-05-05] MEDS ORDERED: ZOLP10TA2 (11:48)
[2022-05-05 12:14] LABS: HEMATOCRIT 52.1 % (42.0-52.0); HEMOGLOBIN 18.2 g/dl (13.5-17.5); MEAN CORPUSCULAR HEMOGLOBIN 29.5 pg (27.0-33.0); MEAN CORPUSCULAR HGB CONC 34.9 g/dl (32.0-36.5); MEAN CORPUSCULAR VOLUME 84.6 fl (80.0-96.0); PLATELET COUNT, AUTOMATED 254 10^3/uL (150-450); RED BLOOD COUNT 6.16 10^6/uL (4.30-6.10); WHITE BLOOD COUNT 10.2 10^3/uL (4.0-10.0)
[2022-05-05 12:36] LABS: AMPHETAMINES LEVEL URINE NEGATIVE (NEGATIVE); BARBITURATES URINE NEGATIVE (NEGATIVE); BENZODIAZEPINES URINE NEGATIVE (NEGATIVE); CANNABINOIDS URINE POSITIVE (NEGATIVE); COCAINE METABOLITE URINE NEGATIVE (NEGATIVE); METHADONE URINE NEGATIVE (NEGATIVE); OPIATES URINE NEGATIVE (NEGATIVE); PHENCYCLIDINE URINE NEGATIVE (NEGATIVE)
[2022-05-05 12:46] LABS: RSV AMPLIFICATION NEGATIVE (NEGATIVE)
[2022-05-05 12:50] LABS: ACETAMINOPHEN LEVEL < 2.0 UG/ML (10.0-30.0); ALBUMIN 4.2 GM/DL (3.2-5.2); ALT/SGPT 69 U/L (12-78); BILIRUBIN,DIRECT 0.5 MG/DL (0.0-0.2); BILIRUBIN,TOTAL 2.3 MG/DL (0.2-1.0); BLOOD UREA NITROGEN 12 MG/DL (7-18); CALCIUM LEVEL 9.8 MG/DL (8.5-10.1); CARBON DIOXIDE LEVEL 28 MEQ/L (21-32); CHLORIDE LEVEL 104 MEQ/L (98-107); CREATININE FOR GFR 1.15 MG/DL (0.70-1.30); ETHYL ALCOHOL (ETHANOL) < 0.003 % (0.000-0.010); GLOMERULAR FILTRATION RATE > 60.0 (>60); GLUCOSE, FASTING 135 MG/DL (70-100); POTASSIUM SERUM 3.6 MEQ/L (3.5-5.1); SALICYLATE LEVEL < 1.7 MG/DL (5.0-30.0); SODIUM LEVEL 138 MEQ/L (136-145); TOTAL PROTEIN 7.7 GM/DL (6.4-8.2)
[2022-05-06] MEDS ORDERED: TRAZ-257 PO (00:33)
[2022-05-06] MEDS ORDERED: HYDR12CA PO (00:33)
[2022-05-06] MEDS ORDERED: LUMA42CA PO (00:33)
[2022-05-06] MEDS ORDERED: ZOLP10TA2 PO (00:33)
[2022-05-06] MEDS ORDERED: HOME MED LIST COMPLETE! XX SCH (00:35)
[2022-05-06] MEDS ORDERED: traZODone 50 MG TAB PO PRN (13:40)
[2022-05-06] MEDS ORDERED: IBUPROFEN 400MG TAB PO PRN (13:40)
[2022-05-06] MEDS ORDERED: MAALOX 30 ML SUSP *UDC PO PRN (13:40)
[2022-05-06] MEDS ORDERED: MOM 30ML SUSPENSION UDC PO PRN (13:40)
[2022-05-06] MEDS ORDERED: diphenhydrAMINE 25MG CAP PO PRN (13:40)
[2022-05-06] MEDS: NICOTINE 21MG/24HR 1 EA TRANSDERMAL TD SCH (15:47)
[2022-05-06 16:01] VITALS: BP 165/101
[2022-05-06 16:26] VITALS: BP 148/98
[2022-05-06] MEDS: hydroCHLOROthiazide 12.5 MG CAPSULE PO SCH (16:54)
[2022-05-06] MEDS: traZODone 100 MG TAB PO SCH (21:45)
[2022-05-07 07:07] VITALS: BP 131/88
[2022-05-07] MEDS: NICOTINE 21MG/24HR 1 EA TRANSDERMAL TD SCH (08:39)
[2022-05-07] MEDS: hydroCHLOROthiazide 12.5 MG CAPSULE PO SCH (08:40)
[2022-05-07] MEDS ORDERED: hydroCHLOROthiazide 12.5 MG CAPSULE PO SCH (09:00)
[2022-05-07] MEDS ORDERED: BENZTROPINE 1 MG TAB PO PRN (11:15)
[2022-05-07] MEDS: SERTRALINE HCL 50 MG TAB PO SCH (12:53)
[2022-05-07] MEDS: risperiDONE 2 MG TAB PO SCH ×2 (12:53→21:08)
[2022-05-07 16:50] VITALS: BP 150/88
[2022-05-07] MEDS: traZODone 100 MG TAB PO SCH (21:08)
[2022-05-08 07:06] VITALS: BP 139/91
[2022-05-08 08:10] LABS: CHOLESTEROL RISK RATIO 3.543 (<5)
[2022-05-08] MEDS: risperiDONE 2 MG TAB PO SCH ×2 (09:43→20:33)
[2022-05-08] MEDS: SERTRALINE HCL 50 MG TAB PO SCH (09:43)
[2022-05-08] MEDS: hydroCHLOROthiazide 12.5 MG CAPSULE PO SCH (09:43)
[2022-05-08] MEDS: NICOTINE 21MG/24HR 1 EA TRANSDERMAL TD SCH (09:43)
[2022-05-08] MEDS: traZODone 100 MG TAB PO SCH (20:33)
[2022-05-09 07:11] VITALS: BP 146/84
[2022-05-09] MEDS: SERTRALINE HCL 25 MG TABLET PO SCH ×2 (09:00→14:59)
[2022-05-09] MEDS: NICOTINE 21MG/24HR 1 EA TRANSDERMAL TD SCH (09:00)
[2022-05-09] MEDS: hydroCHLOROthiazide 12.5 MG CAPSULE PO SCH ×2 (09:00→14:59)
[2022-05-09] MEDS: risperiDONE 2 MG TAB PO SCH ×2 (09:00→21:16)
[2022-05-09] MEDS ORDERED: OLANZapine ORAL DISINTEGRATING TAB 5MG PO STA (15:44)
[2022-05-09 16:42] VITALS: BP 134/90
[2022-05-09] MEDS: traZODone 100 MG TAB PO SCH (21:16)
[2022-05-10 06:32] VITALS: BP 137/88
[2022-05-10] MEDS: hydroCHLOROthiazide 12.5 MG CAPSULE PO SCH (08:06)
[2022-05-10] MEDS: SERTRALINE HCL 25 MG TABLET PO SCH (08:07)
[2022-05-10] MEDS: risperiDONE 2 MG TAB PO SCH (08:07)
[2022-05-10] MEDS: NICOTINE 21MG/24HR 1 EA TRANSDERMAL TD SCH (08:07)
[2022-05-10] MEDS: traZODone 100 MG TAB PO SCH (20:25)
[2022-05-10] MEDS ORDERED: risperiDONE 2 MG TAB PO SCH (21:00)
[2022-05-11 06:58] VITALS: BP 146/100
[2022-05-11] MEDS ORDERED: risperiDONE 2 MG TAB PO SCH (09:00)
[2022-05-11] MEDS: hydroCHLOROthiazide 12.5 MG CAPSULE PO SCH (12:18)
[2022-05-11] MEDS: SERTRALINE HCL 25 MG TABLET PO SCH (12:18)
[2022-05-11] MEDS: NICOTINE 21MG/24HR 1 EA TRANSDERMAL TD SCH (12:19)
[2022-05-11] MEDS: risperiDONE 3 MG TAB PO SCH ×2 (20:31→22:51)
[2022-05-11] MEDS: traZODone 100 MG TAB PO SCH ×2 (20:31→22:51)
[2022-05-12 06:44] VITALS: BP 135/79
[2022-05-12] MEDS: SERTRALINE HCL 25 MG TABLET PO SCH (08:06)
[2022-05-12] MEDS: hydroCHLOROthiazide 12.5 MG CAPSULE PO SCH (08:06)
[2022-05-12] MEDS: NICOTINE 21MG/24HR 1 EA TRANSDERMAL TD SCH (08:08)
[2022-05-12 18:28] VITALS: BP 145/93
[2022-05-12] MEDS: risperiDONE 3 MG TAB PO SCH ×2 (21:00→21:38)
[2022-05-12] MEDS: traZODone 100 MG TAB PO SCH (21:38)
[2022-05-13 06:19] VITALS: BP 149/90
[2022-05-13] MEDS: SERTRALINE HCL 25 MG TABLET PO SCH (08:51)
[2022-05-13] MEDS: hydroCHLOROthiazide 12.5 MG CAPSULE PO SCH (08:52)
[2022-05-13] MEDS: NICOTINE 21MG/24HR 1 EA TRANSDERMAL TD SCH (08:53)
[2022-05-13] MEDS: OLANZapine ORAL DISINTEGRATING TAB 5MG PO PRN (12:33)
[2022-05-13 16:56] VITALS: BP 157/90
[2022-05-13] MEDS: traZODone 100 MG TAB PO SCH (20:23)
[2022-05-13] MEDS: risperiDONE 3 MG TAB PO SCH (20:23)
[2022-05-14 06:29] VITALS: BP 138/90
[2022-05-14] MEDS: NICOTINE 21MG/24HR 1 EA TRANSDERMAL TD SCH (09:00)
[2022-05-14] MEDS: hydroCHLOROthiazide 12.5 MG CAPSULE PO SCH (09:30)
[2022-05-14] MEDS: SERTRALINE HCL 25 MG TABLET PO SCH (09:30)
[2022-05-14 18:25] VITALS: BP 158/96
[2022-05-14] MEDS: traZODone 100 MG TAB PO SCH (21:00)
[2022-05-14] MEDS: risperiDONE 3 MG TAB PO SCH (21:00)
[2022-05-15 06:25] VITALS: BP 148/100
[2022-05-15] MEDS: SERTRALINE HCL 25 MG TABLET PO SCH (08:21)
[2022-05-15] MEDS: hydroCHLOROthiazide 12.5 MG CAPSULE PO SCH (08:21)
[2022-05-15] MEDS: NICOTINE 21MG/24HR 1 EA TRANSDERMAL TD SCH (08:23)
[2022-05-15] MEDS: OLANZapine ORAL DISINTEGRATING TAB 5MG PO PRN (13:13)
[2022-05-15 18:00] VITALS: BP 146/98
[2022-05-15] MEDS: risperiDONE 3 MG TAB PO SCH (21:00)
[2022-05-15] MEDS: traZODone 100 MG TAB PO SCH (21:00)
[2022-05-16 07:03] VITALS: BP 152/83
[2022-05-16 07:16] VITALS: BP 134/96
[2022-05-16] MEDS: SERTRALINE HCL 25 MG TABLET PO SCH (08:34)
[2022-05-16] MEDS: hydroCHLOROthiazide 12.5 MG CAPSULE PO SCH (08:34)
[2022-05-16] MEDS: NICOTINE 21MG/24HR 1 EA TRANSDERMAL TD SCH (08:55)
[2022-05-16] MEDS: risperiDONE 3 MG TAB PO SCH (21:00)
[2022-05-16] MEDS: traZODone 100 MG TAB PO SCH (21:00)
[2022-05-17 06:25] VITALS: BP 152/109
[2022-05-17] MEDS: hydroCHLOROthiazide 12.5 MG CAPSULE PO SCH (09:00)
[2022-05-17] MEDS: risperiDONE 3 MG TAB PO SCH ×2 (09:00→21:49)
[2022-05-17] MEDS: SERTRALINE HCL 25 MG TABLET PO SCH (09:00)
[2022-05-17] MEDS: NICOTINE 21MG/24HR 1 EA TRANSDERMAL TD SCH (09:00)
[2022-05-17 16:26] VITALS: BP 140/102
[2022-05-17] MEDS: traZODone 100 MG TAB PO SCH (21:00)
[2022-05-18 06:28] VITALS: BP 126/81
[2022-05-18] MEDS: NICOTINE 21MG/24HR 1 EA TRANSDERMAL TD SCH (08:17)
[2022-05-18] MEDS: hydroCHLOROthiazide 12.5 MG CAPSULE PO SCH (08:22)
[2022-05-18] MEDS: risperiDONE 3 MG TAB PO SCH (08:22)
[2022-05-18] MEDS: SERTRALINE HCL 25 MG TABLET PO SCH (08:22)
[2022-05-18 16:34] VITALS: BP 123/86
[2022-05-18] MEDS: OLANZapine 10 MG TAB PO SCH (20:00)
[2022-05-18] MEDS: traZODone 100 MG TAB PO SCH (20:01)
[2022-05-19 06:51] VITALS: BP 101/56
[2022-05-19] MEDS: NICOTINE 21MG/24HR 1 EA TRANSDERMAL TD SCH (09:00)
[2022-05-19] MEDS: SERTRALINE HCL 25 MG TABLET PO SCH (09:08)
[2022-05-19] MEDS: hydroCHLOROthiazide 12.5 MG CAPSULE PO SCH (09:08)
[2022-05-19 16:20] VITALS: BP 137/90
[2022-05-19] MEDS: OLANZapine 10 MG TAB PO SCH (20:57)
[2022-05-19] MEDS: traZODone 100 MG TAB PO SCH (20:57)
[2022-05-20 06:46] VITALS: BP 150/88
[2022-05-20] MEDS: NICOTINE 21MG/24HR 1 EA TRANSDERMAL TD SCH (08:56)
[2022-05-20] MEDS: hydroCHLOROthiazide 12.5 MG CAPSULE PO SCH (09:00)
[2022-05-20] MEDS: SERTRALINE HCL 25 MG TABLET PO SCH (09:00)
[2022-05-20] MEDS: OLANZapine 5 MG TAB PO SCH (10:59)
[2022-05-20 17:14] VITALS: BP 146/92
[2022-05-20] MEDS: traZODone 100 MG TAB PO SCH (20:27)
[2022-05-20] MEDS: OLANZapine 10 MG TAB PO SCH (20:28)
[2022-05-21 06:22] VITALS: BP 150/100
[2022-05-21] MEDS: OLANZapine 5 MG TAB PO SCH (08:38)
[2022-05-21] MEDS: SERTRALINE HCL 25 MG TABLET PO SCH (08:38)
[2022-05-21] MEDS: NICOTINE 21MG/24HR 1 EA TRANSDERMAL TD SCH (08:40)
[2022-05-21] MEDS: hydroCHLOROthiazide 12.5 MG CAPSULE PO SCH (08:40)
[2022-05-21 17:00] VITALS: BP 128/86
[2022-05-21] MEDS: OLANZapine 10 MG TAB PO SCH (21:00)
[2022-05-21] MEDS: traZODone 100 MG TAB PO SCH (21:00)
[2022-05-22 06:22] VITALS: BP 129/85
[2022-05-22] MEDS: NICOTINE 21MG/24HR 1 EA TRANSDERMAL TD SCH (08:30)
[2022-05-22] MEDS: hydroCHLOROthiazide 12.5 MG CAPSULE PO SCH (08:32)
[2022-05-22] MEDS: OLANZapine 5 MG TAB PO SCH (08:32)
[2022-05-22] MEDS: SERTRALINE HCL 25 MG TABLET PO SCH (08:32)
[2022-05-22 17:02] VITALS: BP 131/90
[2022-05-22] MEDS: traZODone 100 MG TAB PO SCH (20:01)
[2022-05-22] MEDS: OLANZapine 10 MG TAB PO SCH (20:02)
[2022-05-23 06:35] VITALS: BP 113/66
[2022-05-23] MEDS: NICOTINE 21MG/24HR 1 EA TRANSDERMAL TD SCH (08:22)
[2022-05-23] MEDS: hydroCHLOROthiazide 12.5 MG CAPSULE PO SCH (08:23)
[2022-05-23] MEDS: OLANZapine 5 MG TAB PO SCH (08:23)
[2022-05-23] MEDS: SERTRALINE HCL 25 MG TABLET PO SCH (08:23)
[2022-05-23 16:24] VITALS: BP 130/90
[2022-05-23] MEDS: traZODone 100 MG TAB PO SCH (21:00)
[2022-05-23] MEDS: OLANZapine 10 MG TAB PO SCH (21:00)
[2022-05-24 07:12] VITALS: BP 137/85
[2022-05-24] MEDS: OLANZapine 5 MG TAB PO SCH (08:52)
[2022-05-24] MEDS: SERTRALINE HCL 25 MG TABLET PO SCH (08:52)
[2022-05-24] MEDS: hydroCHLOROthiazide 12.5 MG CAPSULE PO SCH (08:52)
[2022-05-24] MEDS: NICOTINE 21MG/24HR 1 EA TRANSDERMAL TD SCH (08:53)
[2022-05-24 18:00] VITALS: BP 156/81
[2022-05-24] MEDS: OLANZapine 10 MG TAB PO SCH (20:34)
[2022-05-24] MEDS: traZODone 100 MG TAB PO SCH (20:35)
[2022-05-25 06:49] VITALS: BP 146/77
[2022-05-25] MEDS: SERTRALINE 100 MG TAB PO SCH (08:40)
[2022-05-25] MEDS: hydroCHLOROthiazide 12.5 MG CAPSULE PO SCH (08:41)
[2022-05-25] MEDS: OLANZapine 10 MG TAB PO SCH ×2 (08:41→21:56)
[2022-05-25] MEDS: NICOTINE 21MG/24HR 1 EA TRANSDERMAL TD SCH (09:00)
[2022-05-25 19:08] VITALS: BP 150/84
[2022-05-25] MEDS: traZODone 100 MG TAB PO SCH (21:00)
[2022-05-26 06:00] VITALS: BP 121/86
[2022-05-26] MEDS: SERTRALINE 100 MG TAB PO SCH (08:50)
[2022-05-26] MEDS: hydroCHLOROthiazide 12.5 MG CAPSULE PO SCH (08:50)
[2022-05-26] MEDS: OLANZapine 10 MG TAB PO SCH ×2 (08:50→21:17)
[2022-05-26] MEDS: NICOTINE 21MG/24HR 1 EA TRANSDERMAL TD SCH (08:51)
[2022-05-26 18:15] VITALS: BP 134/79
[2022-05-26] MEDS: traZODone 100 MG TAB PO SCH (21:00)
[2022-05-27 06:57] VITALS: BP 120/80
[2022-05-27] MEDS: NICOTINE 21MG/24HR 1 EA TRANSDERMAL TD SCH (08:22)
[2022-05-27] MEDS: hydroCHLOROthiazide 12.5 MG CAPSULE PO SCH (08:23)
[2022-05-27] MEDS: SERTRALINE 100 MG TAB PO SCH (08:23)
[2022-05-27] MEDS: OLANZapine 10 MG TAB PO SCH ×2 (08:23→20:46)
[2022-05-27] MEDS ORDERED: OLAN1TAB20 PO ×2 (08:39)
[2022-05-27] MEDS ORDERED: NICO21PAT TD (08:39)
[2022-05-27] MEDS ORDERED: TRAZ-257 PO (08:39)
[2022-05-27] MEDS ORDERED: BENZ-52 PO (08:39)
[2022-05-27] MEDS ORDERED: ZOLO100T PO (08:39)
[2022-05-27 18:22] VITALS: BP 146/86
[2022-05-27] MEDS: traZODone 100 MG TAB PO SCH (20:47)
[2022-05-28 06:35] VITALS: BP 134/89
[2022-05-28] MEDS: NICOTINE 21MG/24HR 1 EA TRANSDERMAL TD SCH (08:52)
[2022-05-28] MEDS: hydroCHLOROthiazide 12.5 MG CAPSULE PO SCH (08:52)
[2022-05-28] MEDS: OLANZapine 10 MG TAB PO SCH (08:52)
[2022-05-28] MEDS: SERTRALINE 100 MG TAB PO SCH (08:52)
== END 2022-05-28 10:58 | disposition home or self-care (01) | DRG 750 ==
LOC: M ED 11:29 → M ED INP 05-06 13:40 → M PSY 05-06 14:43
PROVIDERS: ADMIT Student in an Organized Health Care Education/Training Program; ATTEND Student in an Organized Health Care Education/Training Program
DX: F20.9 Schizophrenia, unspecified (principal); F43.10 Post-traumatic stress disorder, unspecified; F17.210 Nicotine dependence, cigarettes, uncomplicated; Z91.82 Personal history of military deployment; R45.851 Suicidal ideations; Z20.822 Contact with and (suspected) exposure to COVID-19; Z79.899 Other long term (current) drug therapy; I10 Essential (primary) hypertension; Z91.14 Patient's other noncompliance with medication regimen; Z81.8 Family history of other mental and behavioral disorders

== ENCOUNTER → 2022-08-04 | Outpatient (CLI) | payer MEDICAID, OTHER ==
[~2022-08-04] MED LIST changes: +BENZ-52 PO; +LUMA42CA; +LUMA42CA PO; +OLAN1TAB20 PO; +TRAZ-257 PO; +ZOLO100T PO; +ZOLP10TA2; +ZOLP10TA2 PO
[2022-08-04 13:53] LABS: HEMOGLOBIN 17.2 g/dl (13.5-17.5); MEAN CORPUSCULAR HEMOGLOBIN 29.6 pg (27.0-33.0); MEAN CORPUSCULAR HGB CONC 33.7 g/dl (32.0-36.5); MEAN CORPUSCULAR VOLUME 87.6 fl (80.0-96.0); PLATELET COUNT, AUTOMATED 221 10^3/uL (150-450); RED BLOOD COUNT 5.82 10^6/uL (4.30-6.10); WHITE BLOOD COUNT 8.1 10^3/uL (4.0-10.0)
== END ==
LOC: M PLALAB 11:06
PROVIDERS: ATTEND Student in an Organized Health Care Education/Training Program
DX: I10 Essential (primary) hypertension (principal); E66.01 Morbid (severe) obesity due to excess calories; Z68.41 Body mass index [BMI] 40.0-44.9, adult; F17.210 Nicotine dependence, cigarettes, uncomplicated

== ENCOUNTER → 2024-02-15 | Outpatient (CLI) | payer OTHER ==
[~2024-02-15] MED LIST changes: -BENZ-52 PO; +BENZ0.5T2 PO; -BENZ0.5T23 PO; +BENZ1TAB5 PO
[2024-02-15 09:13] LABS: BASO % 0.4 % (0.0-1.0); EOS # 0.2 10^3/uL (0.0-0.5); EOS % 3.6 % (0.0-3.0); HEMATOCRIT 51.5 % (42.0-52.0); HEMOGLOBIN 17.8 g/dl (13.5-17.5); LYMPH # 2.1 10^3/uL (1.5-5.0); LYMPH % 30.8 % (24.0-44.0); MEAN CORPUSCULAR HGB CONC 34.6 g/dl (32.0-36.5); MEAN CORPUSCULAR VOLUME 86.8 fl (80.0-96.0); MONO # 0.5 10^3/uL (0.0-0.8); NEUTROPHILS # 3.8 10^3/uL (1.5-8.5); NEUTROPHILS % 56.9 % (36.0-66.0); PLATELET COUNT, AUTOMATED 213 10^3/uL (150-450); RED BLOOD COUNT 5.93 10^6/uL (4.30-6.10); WHITE BLOOD COUNT 6.7 10^3/uL (4.0-10.0)
[2024-02-15 09:49] LABS: ALBUMIN 3.8 G/DL (3.2-5.2); ALKALINE PHOSPHATASE 65 U/L (46-116); ALT/SGPT 39 U/L (7.0-40); AST/SGOT 20 U/L (<34); BILIRUBIN,TOTAL 0.8 MG/DL (0.3-1.2); BLOOD UREA NITROGEN 13 MG/DL (9-23); CALCIUM LEVEL 9.2 MG/DL (8.5-10.1); CARBON DIOXIDE LEVEL 32 MMOL/L (20-31); CHLORIDE LEVEL 107 MMOL/L (98-107); CHOLESTEROL LEVEL 192 MG/DL (<200); CHOLESTEROL RISK RATIO 4.33 (<5); GLOMERULAR FILTRATION RATE > 60.0 (>60); GLUCOSE, FASTING 124 MG/DL (60-100); HDL CHOLESTEROL 44.3 MG/DL (>40); LDL CHOLESTEROL 95.3 MG/DL (<100); NON-HDL-C 147.7 MG/DL; POTASSIUM SERUM 4.1 MMOL/L (3.5-5.1); SODIUM LEVEL 142 MMOL/L (136-145); TOTAL PROTEIN 6.7 G/DL (5.7-8.2); TRIGLYCERIDES LEVEL 262 MG/DL (<150)
[2024-02-15 09:54] LABS: HEMOGLOBIN A1c 5.2 % (4.0-6.0)
== END ==
LOC: M LAB 08:32
PROVIDERS: ATTEND Psychiatry & Neurology Psychiatry
DX: F31.9 Bipolar disorder, unspecified (principal)

== ENCOUNTER → 2025-01-03 | Outpatient (CLI) | payer MEDICAID, OTHER ==
[2025-01-03 09:15] LABS: BASO % 0.3 % (0.0-1.0); EOS # 0.4 10^3/uL (0.0-0.5); EOS % 6.1 % (0.0-3.0); HEMATOCRIT 49.1 % (42.0-52.0); HEMOGLOBIN 16.7 g/dl (13.5-17.5); LYMPH # 2.2 10^3/uL (1.5-5.0); LYMPH % 31.5 % (24.0-44.0); MEAN CORPUSCULAR VOLUME 88.2 fl (80.0-96.0); MONO # 0.6 10^3/uL (0.0-0.8); MONO % 7.8 % (2.0-8.0); NEUTROPHILS # 3.8 10^3/uL (1.5-8.5); NEUTROPHILS % 53.9 % (36.0-66.0); PLATELET COUNT, AUTOMATED 184 10^3/uL (150-450); RED BLOOD COUNT 5.57 10^6/uL (4.30-6.10)
[2025-01-03 09:38] LABS: ALBUMIN 3.5 G/DL (3.2-5.2); ALKALINE PHOSPHATASE 62 U/L (40-129); ALT/SGPT 42 U/L (7.0-40); AST/SGOT 18 U/L (<34); BILIRUBIN,TOTAL 0.9 MG/DL (0.3-1.2); BLOOD UREA NITROGEN 10 MG/DL (9-23); CARBON DIOXIDE LEVEL 28 MMOL/L (20-31); CHLORIDE LEVEL 110 MMOL/L (98-107); CHOLESTEROL LEVEL 203 MG/DL (<200); CHOLESTEROL RISK RATIO 4.12 (<5); CREATININE FOR GFR 0.86 MG/DL (0.70-1.30); GLOMERULAR FILTRATION RATE > 60.0 (>60); GLUCOSE, FASTING 121 MG/DL (60-100); HDL CHOLESTEROL 49.2 MG/DL (>40); LDL CHOLESTEROL 116.4 MG/DL (<100); NON-HDL-C 153.8 MG/DL; POTASSIUM SERUM 4.5 MMOL/L (3.5-5.1); SODIUM LEVEL 144 MMOL/L (136-145); TOTAL PROTEIN 6.7 G/DL (5.7-8.2); TRIGLYCERIDES LEVEL 187 MG/DL (<150)
[2025-01-03 09:40] LABS: HEMOGLOBIN A1c 5.3 % (4.0-6.0)
== END ==
LOC: M LAB 08:40
PROVIDERS: ATTEND Psychiatry & Neurology Psychiatry
DX: F31.9 Bipolar disorder, unspecified (principal)